=== PATIENT | male | born 1945 | race Caucasian/White ===

== ENCOUNTER → 2016-07-22 | Outpatient (REF) | payer MEDICARE, OTHER ==
[~2016-07-22] MED LIST: ASPI81TA90 PO; BENI20TA5 PO; IRON325T3 PO; LEVO500T PO; SENN8.6T7 PO; TYLE325T5 PO; vitamin D3 PO
[2016-07-22 19:21] LABS: PERCENT SATURATION 16.3 % (19.7-37.4)
== END ==
LOC: M LAB REF 16:26
PROVIDERS: ATTEND Internal Medicine
DX: D50.9 Iron deficiency anemia, unspecified (principal); K90.0 Celiac disease

== ENCOUNTER → 2016-09-11 | Outpatient (CLI) | payer MEDICARE, OTHER | LOC: M SMT 10:45 | PROVIDERS: ATTEND Urology | DX: C61 Malignant neoplasm of prostate (principal) ==

== ENCOUNTER 2016-10-11 09:16 | Inpatient (IN) | payer MEDICARE, OTHER ==
[~2016-10-11] VITALS: Ht 180.3 cm; Wt 92.5 kg
[2016-10-11] MEDS ORDERED: ASPI1TAB PO (09:32)
[2016-10-11] MEDS ORDERED: FERR325T3 PO (09:32)
[2016-10-11] MEDS ORDERED: [UNRECOGNIZED DRUG - OTHER] (09:32)
[2016-10-11 10:30] LABS: ANION GAP 9 MEQ/L (8-16); BLOOD UREA NITROGEN 20 MG/DL (7-18); CALCIUM LEVEL 8.9 MG/DL (8.8-10.2); CARBON DIOXIDE LEVEL 24 MEQ/L (21-32); CHLORIDE LEVEL 99 MEQ/L (98-107); CREATININE FOR GFR 1.08 MG/DL (0.70-1.30); GLOMERULAR FILTRATION RATE > 60.0 (>42); GLUCOSE, FASTING 138 MG/DL (83-110); POTASSIUM SERUM 4.3 MEQ/L (3.5-5.1); SODIUM LEVEL 132 MEQ/L (136-145)
[2016-10-11] MEDS ORDERED: METOPROLOL 5 MG/5 ML VIAL IV SCH (10:30)
[2016-10-11] MEDS ORDERED: METOPROLOL TART 50 MG TAB PO ONE (10:30)
[2016-10-11 10:51] LABS: BASO % 0.6 % (0.0-1.0); EOS % 0.9 % (0.0-3.0); LARGE UNSTAINED CELL # 0.2 K/mm3 (0.0-0.4); LARGE UNSTAINED CELL % 5.2 % (0.0-4.0); LYMPH # 0.5 K/mm3 (1.5-4.5); LYMPH % 13.4 % (24.0-44.0); MEAN CORPUSCULAR HEMOGLOBIN 27.7 pg (27.0-33.0); MEAN CORPUSCULAR HGB CONC 32.9 g/dl (32.0-36.5); MEAN CORPUSCULAR VOLUME 84.3 fl (80.0-96.0); MONO # 0.2 K/mm3 (0.0-0.8); MONO % 8.3 % (0.0-5.0); NEUTROPHILS # 2.1 K/mm3 (1.8-7.7); NEUTROPHILS % 71.6 % (36.0-66.0); PLATELET COUNT, AUTOMATED 158 k/mm3 (150-450); WHITE BLOOD COUNT 2.9 K/mm3 (4.0-10.0)
[2016-10-11] MEDS ORDERED: APIXABAN 5 MG TAB (ELIQUIS) PO ONE (11:30)
[2016-10-11] MEDS ORDERED: DIGOXIN INJ 0.5 MG/2 ML AMP (J1160) IV ONE (11:30)
--- NOTE | 2016-10-11 12:43 | REP ---
REASON: Abnormal plain film examination of the chest 10/09/2016 The lack of intravenous contrast decreases the sensitivity of the exam. There is mediastinal and suspected right hilar adenopathy difficult to evaluate without contrast. There are no pleural or pericardial effusions. The imaged upper abdomen is within normal limits. There is diffuse fatty infiltration of the pancreas. The imaged osseous structures show no significant changes from the prior exam. Evaluation of the lung butler show numerable spiculated densities throughout both lung butler, too numerous to count or individually assess and all representing a change from the prior chest CT. Consolidated densities are seen in the right upper lobe and right lower lobe with air bronchograms within them. There is left lateral pleural thickening. IMPRESSION: 1. Abnormal lung field findings as described above. The findings are most suspicious for neoplasm with postobstructive pneumonia. Certainly, other etiologies exist and need to be correlated clinically. PET/CT is in order according to the revised Fleischner's Society criteria after infectious treatment if clinically relevant. 2. Adenopathy is suspected as described above. 3. Other findings as described above. Signed by Prasanna Steiner DO 10/11/2016 02:09 P
[2016-10-11] MEDS ORDERED: cefTRIAXone SOD 2 GM in D5W MINI-BAG PLUS 50 ML IV ONE (13:30)
[2016-10-11] MEDS ORDERED: AZITHROMYCIN INJ 500 MG, VIAL MATE ADAPTER 1 EACH in D5W 250 ML IV ONE (13:30)
[2016-10-11] MEDS ORDERED: TYLE325T5 PO (13:39)
[2016-10-11] MEDS ORDERED: BENI20TA5 PO (13:39)
[2016-10-11] MEDS ORDERED: VITA200015 PO (13:39)
[2016-10-11] MEDS ORDERED: ASPI81TA7 PO (13:39)
[2016-10-11] MEDS ORDERED: OCUVTAB4 PO (13:39)
--- NOTE | 2016-10-11 16:36 | HPE ---
DATE OF ADMISSION: 10/11/2016 PRIMARY CARE PROVIDER: Dr. Gamez ATTENDING PHYSICIAN: Dr. White REASON FOR ADMISSION: Shortness of breath. HISTORY OF PRESENT ILLNESS: The patient is a 71-year-old male with past medical history significant for celiac disease, hypertension, iron-deficiency anemia, history of prostate cancer, presented to the emergency room complaining of 1 week of shortness of breath with exertion getting worse over the past 2 days, stated he has also been having a cough with sputum production for the last 2 days. He denies any chest pain or pressure but he stated he had been getting more lightheaded. He also stated that he has been losing weight, 10 pounds over the past week, 20 pounds in the past 2 months. He was recently seen by his primary care provider Dr. Gamez who ordered a chest x-ray on . The chest x-ray showed suspicious lesions and the patient was given a prescription for CT of the chest. However he presented to the emergency room today before getting his CT scan. CT scan was done in the emergency room which showed mediastinal and suspected right hilar adenopathy. Numerous spiculated densities throughout both lung butler too numerous to count. Findings suspicious for neoplasm with post obstructive pneumonia. The patient is currently saturating 97% on 2 liters nasal cannula. No other complaints. The hospitalist was called for the admission. The patient was also found to be in new onset atrial fibrillation. Dr. Morton was called from the emergency room. He recommended to start the patient on digoxin. He received one dose and metoprolol received one dose as well as start the patient on Eliquis. The patient's heart rate was controlled by the time I saw him. REVIEW OF SYSTEMS: 12-point review of systems was obtained all which was negative except for those mentioned above. PAST MEDICAL HISTORY: Significant for history of celiac disease, hypertension, iron deficiency anemia, history of prostate cancer. PAST SURGICAL HISTORY: Significant for right hip replacement, prostate surgery 3 years ago, patient follows up with Dr. Christian outpatient. ALLERGIES TO MEDICATIONS: None. SOCIAL HISTORY: The patient used to smoke but quit 50 years ago, he stated he only smoked for a couple of years and drinks alcohol occasionally. Lives at home with his . FAMILY HISTORY: Significant for cardiac disease. His father had a heart attack in his 60s. No other significant family history. HOME MEDICATIONS: Include: - Tylenol 650 mg by mouth every 6 hours as needed for pain - aspirin 81 mg daily - vitamin D 2000 by mouth daily - iron sulfate 325 by mouth daily PHYSICAL EXAMINATION: Vital signs: On admission: Temperature 96.9, pulse 114, respiratory rate 16, blood pressure is 98/60. HEENT: Pupils equal, round, reactive to light and accommodation. Neck is supple. No jugular venous distention (JVD). Lungs: Clear to auscultation bilaterally. Abdomen: Soft, nontender, nondistended. Extremities: No clubbing, cyanosis or edema. LABORATORY FINDINGS: WBC is 2.9, hemoglobin 14, hematocrit 47, platelet count 158. Sodium 132, potassium 4.3, chloride 99, BUN 20, creatinine 1.08. Troponin 0.08. CT findings as above. ASSESSMENT/PLAN: 1. New onset atrial fibrillation, likely secondary to lung disease, pneumonia, plus or minus metastatic disease. Continue Eliquis. Repeat EKG in the morning. Continue to trend cardiac enzymes. Will continue to monitor the patient on telemetry. Will likely need to followup with cardiology outpatient. 2. Spiculated densities on CT scan likely secondary to metastatic disease. We will consult Dr. Morgan who had agreed to see the patient in consultation. The patient will likely need lung biopsy. Continue oxygen therapy to keep saturations above 90%. 3. History of hypertension. Patient is currently hypotensive. We will put hold parameters on Benicar. 4. Questionable pneumonia. Continue IV antibiotics. The patient received one dose of azithromycin and Rocephin in the emergency room. Will continue. 5. History of iron deficiency anemia. Continue iron sulfate 325 mg by mouth daily. 6. History of prostate cancer. 7. Deep venous thrombosis (DVT) prophylaxis. Patient is currently on Eliquis.
[2016-10-11 16:40] VITALS: BP 113/64
[2016-10-11 18:00] VITALS: BP 134/60
[2016-10-11] MEDS: APIXABAN 5 MG TAB (ELIQUIS) PO SCH (20:22)
[2016-10-11] MEDS: OCUVITE 1 TAB PO SCH (21:00)
[2016-10-11 21:15] VITALS: BP 108/72
[2016-10-12] VITALS (7 sets, daily range): BP systolic 99–136; BP diastolic 61–78
[2016-10-12] MEDS: ACETAMINOPHEN TAB 650MG DOSE (2X325MG) PO PRN (00:52)
[2016-10-12] MEDS ORDERED: DIGOXIN INJ 0.5 MG/2 ML AMP (J1160) IV ONE (01:15)
[2016-10-12] MEDS: METOPROLOL TART 25 MG TABLET PO SCH ×5 (01:21→21:11)
[2016-10-12 04:10] LABS: BASO % 0.3 % (0.0-1.0); EOS % 1.4 % (0.0-3.0); LARGE UNSTAINED CELL # 0.1 K/mm3 (0.0-0.4); LARGE UNSTAINED CELL % 4.4 % (0.0-4.0); LYMPH # 0.4 K/mm3 (1.5-4.5); LYMPH % 11.3 % (24.0-44.0); MEAN CORPUSCULAR HEMOGLOBIN 27.9 pg (27.0-33.0); MEAN CORPUSCULAR HGB CONC 33.7 g/dl (32.0-36.5); MEAN CORPUSCULAR VOLUME 82.7 fl (80.0-96.0); MONO # 0.2 K/mm3 (0.0-0.8); MONO % 7.8 % (0.0-5.0); NEUTROPHILS # 2.1 K/mm3 (1.8-7.7); NEUTROPHILS % 74.8 % (36.0-66.0); PLATELET COUNT, AUTOMATED 148 k/mm3 (150-450); WHITE BLOOD COUNT 2.8 K/mm3 (4.0-10.0)
[2016-10-12 04:31] LABS: ALBUMIN 2.6 GM/DL (3.2-5.2); ALBUMIN/GLOBULIN RATIO 0.68 (1.00-1.93); ALKALINE PHOSPHATASE 102 U/L (45-117); ALT/SGPT 39 U/L (12-78); ANION GAP 9 MEQ/L (8-16); AST/SGOT 55 U/L (15-37); BILIRUBIN,TOTAL 0.5 MG/DL (0.2-1.0); BLOOD UREA NITROGEN 22 MG/DL (7-18); CALCIUM LEVEL 8.3 MG/DL (8.8-10.2); CARBON DIOXIDE LEVEL 24 MEQ/L (21-32); CHLORIDE LEVEL 101 MEQ/L (98-107); CREATININE FOR GFR 0.95 MG/DL (0.70-1.30); GLOMERULAR FILTRATION RATE > 60.0 (>42); GLUCOSE, FASTING 135 MG/DL (83-110); POTASSIUM SERUM 4.1 MEQ/L (3.5-5.1); SODIUM LEVEL 134 MEQ/L (136-145); TOTAL PROTEIN 6.4 GM/DL (6.4-8.2)
[2016-10-12] MEDS ORDERED: ENOXAPARIN 30 MG/0.3 ML SYR (J1650) SC SCH (09:00)
[2016-10-12] MEDS ORDERED: cefTRIAXone SOD 1 GM in D5W MINI-BAG PLUS 50 ML IV SCH (09:00)
--- NOTE | 2016-10-12 09:14 | ECGEPIP ---
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
[2016-10-12] MEDS: AZITHROMYCIN INJ 500 MG, VIAL MATE ADAPTER 1 EACH in D5W 250 ML IV SCH (09:58)
[2016-10-12] MEDS: APIXABAN 5 MG TAB (ELIQUIS) PO SCH (10:02)
[2016-10-12] MEDS: FERROUS SULFATE 325MG TAB PO SCH (10:02)
[2016-10-12] MEDS: VITAMIN D 1,000 INTERNATIONAL UNITS TABLET PO SCH (10:02)
[2016-10-12] MEDS: OLMESARTAN MEDOXOMIL 20 MG TAB (BENICAR) PO SCH (11:37)
[2016-10-12] MEDS: OCUVITE 1 TAB PO SCH ×2 (11:37→21:11)
[2016-10-12] MEDS ORDERED: GASTROGRAFIN SOLUTION 30ML PO ONE (12:55)
[2016-10-12] MEDS: PIPERACILLIN/TAZOBACTAM SOD 3.375 GM in D5W MINI-BAG PLUS 50 ML IV SCH ×2 (13:11→18:06)
[2016-10-12] MEDS: DIGOXIN 0.25 MG TAB PO SCH (13:15)
[2016-10-12] MEDS ORDERED: GASTROGRAFIN SOLUTION 30ML (Q9963) PO ONE (13:25)
[2016-10-12] MEDS ORDERED: ISOVUE-370 76% 100ML VIAL (Q9967) As Ordered ONE (14:25)
--- NOTE | 2016-10-12 15:59 | ECGEPIP ---
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 NONSPECIFIC T-WAVE ABNORMALITY ABNORMAL RHYTHM ECG Electronically Signed On 10-12-2016 15:59:04 EDT by Oscar Morton
--- NOTE | 2016-10-12 17:29 | CR ---
DATE OF CONSULTATION: 10/12/2016 NOTE: I was asked by Dr. Franks to evaluate Mr. Sanches for an abnormal chest CT scan. Mr. Sanches is a 71-year-old white male who has felt increasing shortness of breath over the past few weeks. He had been seen by Dr. Gamez last and had a chest x-ray done which had some abnormalities on it, and he was scheduled to have a chest CT scan. However, his dyspnea worsened and he came to the emergency department on Thursday. At that time, he was found to be in atrial fibrillation with rapid ventricular response. Chest CT scan was done which showed multiple abnormalities which will be described below. In addition to the shortness of breath, Mr. Sanches has had a cough; however, he was unable to expectorate. He had no fevers. He had thought that his cough may have possibly been secondary to postnasal drip. No reflux symptoms. He also felt as if he might have been "getting a cold." No chest pain or pressure. No paroxysmal nocturnal dyspnea (PND) or orthopnea. No wheezing. No lower extremity edema or history of deep venous thrombosis (DVT). He did develop night sweats that happen on occasion to the point where he has to change his clothing. He is not certain how long they have been going on, but not for a prolonged period of time. He describes early satiety and notes that he has lost 10 pounds or so over the last month. He is less clear as to whether or not his appetite is truly decreased. No swallowing difficulties or choking episodes. Mr. Sanches notes that he had what he considers a similar episode last spring, where he also felt unwell, had dyspnea on exertion and weight loss. These symptoms resolved over about a month. He had a chest x- ray done at that time which did not show any abnormalities. Previously, Mr. Sanches has been diagnosed with bronchitis on occasion, as well as at least one, if not two episodes of pneumonia, though I do not know if they were chest x-ray confirmed. He had asthma in childhood but feels he has outgrown it. Since his admission, he has converted to sinus rhythm. His dyspnea on exertion is essentially resolved with the conversion to normal sinus rhythm. No new symptoms since admission. PAST MEDICAL HISTORY: 1. Celiac disease. 2. Hypertension. 3. Iron-deficiency anemia. 4. History of prostate cancer, status post transurethral resection of the prostate (TURP). 5. Status post right hip replacement. 6. Previous history of minimal tobacco usage. ALLERGIES: No known drug allergies. MEDICATIONS: - Tylenol 650 mg by mouth every six hours as needed - aspirin 81 mg by mouth daily - vitamin D 2000 units by mouth daily - iron sulfate 325 mg by mouth daily FAMILY HISTORY: His mother of cancer of unknown primary. His father had a myocardial infarction and in his 60s. No other family history of lung disease. SOCIAL HISTORY: Mr. Sanches smoked briefly for a couple of years and quit about 50-60 years ago. He had second-hand smoke exposure in childhood as his father smoked. Social alcohol usage. No illicit drug usage. They have two cats as pets, which they have had for years. 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 Since his care home, his hobbies include woodworking, and he volunteers at [employer]. 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 He last worked there about a year ago. [place] [facility], but that was in [place]. No travel outside of [facility] in the last four years or so. REVIEW OF SYSTEMS: Per history of present illness (HPI). Major pertinent review of systems are negative. PHYSICAL EXAMINATION: GENERAL: Mr. Sanches is lying in bed in no acute distress. He can complete full sentences. No coughing at evaluation. He is easily able to move to the sitting position. VITAL SIGNS: Temperature 96.9 with a temperature maximum (T-max) of 100.2, pulse 113, respiratory rate 20, blood pressure 114/75 with an mean arterial pressure (MAP) of 88. SpO2 97% and an FiO2 on two liters by nasal cannula. HEENT: Anicteric, nares patent bilaterally. Moist mucosa. Oropharynx clear. No lesions. No evidence of drainage in the posterior pharynx. Mallampati II-III. Good dentition. NECK: Supple, without jugular venous distention (JVD), thyromegaly or masses. Trachea is midline. LYMPHATIC: Without cervical or supraclavicular adenopathy. CHEST: Normal shape. LUNGS: Symmetrical excursion, good air entry, no wheeze, rhonchi or crackle on tidal excursion or force maneuver. Normal I to E without change on force maneuver. No accessory muscle use, no retractions. Normal percussion. Normal palpation. CARDIOVASCULAR: Tachycardic regular rhythm. Normal S1, S2. No murmur, rub, or gallop appreciated. ABDOMEN: Positive bowel sounds, soft, nondistended, nontender, no hepatosplenomegaly or mass is appreciated. EXTREMITIES: Without cyanosis, clubbing or edema. Palpable pedal pulses bilaterally, no calf tenderness. LABORATORY DATA: CBC from today shows a hemoglobin of 13.1, hemoglobin 39.0, platelet count 148,000, white blood cell count 2800 with a differential of 75% neutrophils, 11% lymphocytes, and 8% monocytes. Chemistry shows sodium 134, potassium 4.1, chloride 101, bicarbonate 24, anion gap 9, BUN 22, creatinine 1.0, glucose 135, calcium 8.3, total bilirubin 0.5, AST 55, ALT 39, alkaline phosphatase 102, most recent CK 94 with a CK-MB of 2.6 and a troponin is 0.03. Maximum troponin was 2.24. Total protein 6.4, albumin 2.6. IMAGING: I reviewed his chest CT, as well as the report. That CT scan showed normal-appearing cardiac silhouette and pulmonary vascular shadows. There was right hilar adenopathy. There are several small, enlarged mediastinal lymph nodes, but I am not certain any of them are pathologic, except perhaps the subcarinal lymph node. There were bilateral spiculated densities as well as regions of ground-glass. The spiculated nodules involve all lung butler. There are regions that are more consolidated, including regions in the right upper lobe and middle lobe that contain air bronchograms. IMPRESSION: 1. Abnormal chest x-ray/CT scan with findings that include bilateral, diffuse spiculated nodules, regions of ground glass, more consolidated regions and regions that have air bronchograms. It is not clear if all of these findings are the same process. Differential would include inflammatory process, infectious process, related to celiac sprue, malignancy or other. If this is malignancy, it is less likely a lung primary, but rather metastatic. 2. Dyspnea on exertion. Based on his response to converting to sinus rhythm, I suspect that most of his symptoms related to dyspnea, were because of atrial fibrillation with rapid ventricular response, and not necessarily related to the chest x-ray findings. 3. Atrial fibrillation with rapid ventricular response, new onset. 4. Night sweats of recent onset. 5. Weight loss, recent and due to early satiety. 6. History of asthma in childhood. 7. Remote history of minimal tobacco usage. RECOMMENDATIONS: 1. I discussed the differential with Mr. Sanches and his , and questions were answered. 2. I discussed with them that I would review the chest CT scan again to determine if there is an area of easy biopsy by radiology that appears more of the spiculated nodule-type of pattern than the consolidated pattern. If that is the case, that would be the easiest process to pursue. 3. I will have the CT reformatted into the ilogic CT scan. If any of the spiculated nodules are best approached by bronchoscopy, ENB would be necessary. 4. I discussed both possible procedures briefly, but not in detail, with Mr. Sanches and his . 5. Agree with antibiotic treatment as I am not certain that all the findings on this chest CT scan represent the same process. 6. We will follow with further recommendations after re-review of the chest CT scan. Thank you for this consult. PAOLA
[2016-10-12] MEDS: NS 1,000 ML IV SCH (17:33)
[2016-10-12] MEDS: ALPRAZolam 0.25 MG TAB PO PRN (21:48)
[2016-10-13] VITALS (8 sets, daily range): BP systolic 100–111; BP diastolic 55–66
[2016-10-13] MEDS: PIPERACILLIN/TAZOBACTAM SOD 3.375 GM in D5W MINI-BAG PLUS 50 ML IV SCH ×4 (01:27→18:35)
[2016-10-13] MEDS: METOPROLOL TART 25 MG TABLET PO SCH ×4 (04:35→21:39)
[2016-10-13 06:10] LABS: BASO % 0.6 % (0.0-1.0); EOS % 0.6 % (0.0-3.0); LARGE UNSTAINED CELL # 0.1 K/mm3 (0.0-0.4); LARGE UNSTAINED CELL % 3.7 % (0.0-4.0); LYMPH # 0.5 K/mm3 (1.5-4.5); LYMPH % 15.5 % (24.0-44.0); MEAN CORPUSCULAR HEMOGLOBIN 27.2 pg (27.0-33.0); MEAN CORPUSCULAR HGB CONC 32.4 g/dl (32.0-36.5); MEAN CORPUSCULAR VOLUME 83.8 fl (80.0-96.0); MONO # 0.2 K/mm3 (0.0-0.8); MONO % 8.2 % (0.0-5.0); NEUTROPHILS # 1.8 K/mm3 (1.8-7.7); NEUTROPHILS % 71.5 % (36.0-66.0); PLATELET COUNT, AUTOMATED 164 k/mm3 (150-450); RED CELL DISTRIBUTION WIDTH 13.9 % (11.5-14.5); WHITE BLOOD COUNT 2.5 K/mm3 (4.0-10.0)
[2016-10-13 06:15] LABS: ALBUMIN 2.5 GM/DL (3.2-5.2); ALBUMIN/GLOBULIN RATIO 0.69 (1.00-1.93); ALKALINE PHOSPHATASE 101 U/L (45-117); ALT/SGPT 37 U/L (12-78); ANION GAP 9 MEQ/L (8-16); AST/SGOT 52 U/L (15-37); BILIRUBIN,TOTAL 0.6 MG/DL (0.2-1.0); BLOOD UREA NITROGEN 19 MG/DL (7-18); CALCIUM LEVEL 8.6 MG/DL (8.8-10.2); CARBON DIOXIDE LEVEL 27 MEQ/L (21-32); CHLORIDE LEVEL 100 MEQ/L (98-107); GLOMERULAR FILTRATION RATE > 60.0 (>42); GLUCOSE, FASTING 111 MG/DL (83-110); POTASSIUM SERUM 4.2 MEQ/L (3.5-5.1); SODIUM LEVEL 136 MEQ/L (136-145); TOTAL PROTEIN 6.1 GM/DL (6.4-8.2)
[2016-10-13] MEDS: NS 1,000 ML IV SCH (06:16)
--- NOTE | 2016-10-13 06:38 | REP ---
REASON: Suspect malignancy. COMPARISON: Abdominal and pelvic CT of 08/28/2005 which is the latest prior. Lung base images of the chest CT of 10/11/2016 were reviewed. CONTRAST UTILIZED: 100 mL Isovue 370. Lung base images are unchanged from the prior chest CT. There are no abnormal enhancing hepatic lesions. The gallbladder, spleen, pancreas, adrenal glands, and kidneys are within normal limits for the patient's age. There is mild bilateral renal cortical thinning and there is a simple 1.3 cm sized cyst in the mid polar region of the left kidney. The abdominal aorta is within normal limits. There is para-aortic adenopathy. There is no evidence of free fluid or free air in the abdomen. There are multiple gas, contrast, and fluid filled small bowel loops seen in the abdomen which are mildly dilated. CT PELVIS: [place] artifact arising from a right hip prosthesis obscures multiple images. There is no free fluid or free air. There is no mass or adenopathy. The bowel loops are within normal limits. There is sigmoid colon diverticulosis. Bone window technique throughout the exam shows chronic osseous changes with spinal degenerative changes and a right hip prosthesis. The bones appear demineralized. IMPRESSION: 1. Small bowel ileus versus early partial bowel obstruction. 2. Para-aortic adenopathy of uncertain etiology with enlarged lymph nodes seen in the leesa hepatis and adjacent to the celiac axis. Neoplastic change cannot be ruled out and is, in fact, suspected since there is no evidence of inflammatory bowel disease. 3. Simple left renal cyst. 4. Other findings as described above. Signed by Prasanna Steiner DO 10/13/2016 03:40 P
[2016-10-13] MEDS: OLMESARTAN MEDOXOMIL 20 MG TAB (BENICAR) PO SCH (09:08)
[2016-10-13] MEDS: ALPRAZolam 0.25 MG TAB PO PRN ×2 (09:08→17:49)
[2016-10-13] MEDS: FERROUS SULFATE 325MG TAB PO SCH (09:08)
[2016-10-13] MEDS: OCUVITE 1 TAB PO SCH ×2 (09:09→21:39)
[2016-10-13] MEDS: DIGOXIN 0.25 MG TAB PO SCH (09:09)
[2016-10-13] MEDS: VITAMIN D 1,000 INTERNATIONAL UNITS TABLET PO SCH (09:09)
[2016-10-13] MEDS: AZITHROMYCIN INJ 500 MG, VIAL MATE ADAPTER 1 EACH in D5W 250 ML IV SCH (10:01)
--- NOTE | 2016-10-13 10:17 | IPN ---
DATE: 10/12/2016 Mr. Sanches is feeling better than he did on arrival. He has no chest pain. He is still somewhat short of breath. He is not producing any sputum, although he feels as though some could come up. He is quite anxious about his possible diagnosis. Temperature is 96.9, pulse has a range between 66-125 this morning, most recently is 103, respiratory rate 20, blood pressure 114/75, 97% on 2 liters. Intake and output notable for a positive fluid status of 665. Body mass index 30.3. He is awake, appropriately interactive, seems somewhat anxious with a flattened affect. Mucous membranes are moist. Neck supple. He is somewhat diaphoretic, but afebrile. Breathing is symmetrically diminished with coarse airway sounds throughout, no wheeze. Heart is in a regular rate and rhythm, normal S1, S2. Abdomen soft, somewhat distended, no organomegaly is appreciated. No significant lower extremity edema. White count 2.8, hemoglobin 13.1, platelets of 148. Sodium 134, BUN 22, creatinine 0.95, troponins have been negative times four. AST is minimally elevated at 55. Blood cultures are pending times two. My assessment is as follows: This is a 71-year-old with atrial fibrillation and rapid ventricular response (RVR), likely secondary to postobstructive pneumonia. Plan will be as follows: 1. Cardiovascular. Patient is on a standing beta tiffanie. I have added standing digoxin as well. I have elected to discontinue Eliquis at this time pending need for possible procedure. This will act as appropriate deep venous thrombosis (DVT) prophylaxis for today but that will need to be re-addressed tomorrow. Cardiac enzymes have been negative. 2. The patient has densities on CT scan, thought to be secondary to metastatic disease. Will order a CT scan of his abdomen today to look for possible biopsy targets in the abdomen. There is a previous history of enlarged lymph nodes around the time of his prostatectomy. Biopsies of those were negative. 3. Patient was hypotensive at the time of presentation. He did receive his Benicar today. Will continue that as previously ordered for now as renal function appears to be maintained. 4. The patient has history of celiac disease. Has had previous EGD and colonoscopy without evidence of malignant foci. 5. The patient has history of vitamin deficiency. 6. The patient has history of prostate cancer. 7. Deep venous thrombosis (DVT) prophylaxis will need to be re-addressed tomorrow, most likely with Lovenox.
[2016-10-13] MEDS ORDERED: LIDOCAINE 1% MDV 20ML VIAL As Ordered ONE (13:09)
--- NOTE | 2016-10-13 15:12 | REP ---
Chest x-ray: PA view. History: Status post CT guided needle biopsy right lung. Comparison study October 09, 2016. Findings: Patchy bilateral infiltrates are again seen. There is no evidence of pneumothorax or hydrothorax. Impression: Lung butler unchanged. No complication is identified. Signed by Teofilo Griffin MD 10/13/2016 06:27 P
--- NOTE | 2016-10-13 15:30 | IPN ---
DATE: 10/13/2016 The patient is feeling better today, less short of breath, more energy. Still has some anxiety about his possible diagnosis. Temperature is 97.8, pulse 107, respiratory rate 18, blood pressure 106/55, 96% on 2 liters. Intake and output notable for a positive fluid balance of 1780. Four bowel movements yesterday. Weight is 99.9 kg with a body mass index of 30.7. He awake, appropriately interactive, pleasantly conversant. Heart seems to be in a regular rate and rhythm. Rate is right around 100. Abdomen soft, doughy, nontender. White cell count 2.5, hemoglobin 12.1, platelets of 164. BUN 19, creatinine 1, glucose of 111. Blood cultures are negative at 48 hours. ASSESSMENT: This is a 71-year-old with atrial fibrillation with rapid ventricular response (RVR), which appears to be resolved, likely secondary to postobstructive pneumonia. PLAN: 1. Cardiovascular. Patient continues on a beta tiffanie with hold parameters. Is on digoxin as well. Seems to be back in sinus rhythm at this point. We have discontinued Eliquis, planning for a possible biopsy of a chest lesions today. Will need to be reassessed as an outpatient. Seems likely that this was atrial fibrillation, which was induced by a pneumonia. Need for home anticoagulation should be considered, depending on his clinical course. 2. Patient has multiple areas of unusual density on CT scan, though to be secondary to metastatic disease. Dr. Morgan is following. Pursuing biopsy today as well as cultures of those lesions. He does have history of a biopsy of abdominal lymph nodes around the time of his prosthetic procedure. 3. Patient has leukopenia and developing anemia. Will get a peripheral smear. Given the fact that his total protein is in the normal range and his albumin is low, will check an serum protein electrophoresis (SPEP) and a urin protein electrophoresis (UPEP), although that seems less likely. We did do a screening CT of the abdomen and pelvis with the only notable finding being periaortic adenopathy with possibility of relation to an underlying malignancy being strongly considered. 4. Patient has history of prostate cancer. 5. Patient has deep vein thrombosis (DVT) prophylaxis that will be ordered postprocedure today in the form of Lovenox.
--- NOTE | 2016-10-13 17:19 | REP ---
CT GUIDED RIGHT LOWER LOBE LUNG BIOPSY: The procedure was performed under the direct supervision of Dr. Griffin. The patient has a history of spiculated masses throughout both lung butler seen on a previous CAT scan dated 10/11/2016. A mass in the right lower lobe was selected for biopsy. The risks and benefits of the procedure were explained to the patient and informed consent was obtained. The right lower lobe lung mass was localized using CT guidance. The skin was prepped and draped in a sterile fashion. 1% Xylocaine was used as a local anesthetic. Using CT guidance a 19/20-gauge coaxial needle biopsy system was inserted and then advanced into the mass. 6 core biopsy samples were obtained and sent to the lab. The patient tolerated the procedure well and there were no immediate complications. Reviewed by BRYANT Valencia 10/14/2016 04:42 PEdited and Signed by Teofilo Griffin MD 10/14/2016 05:10 P
[2016-10-13] MEDS: HEPARIN SOD (PORCINE) 5000 UNITS/ML VIAL SQ SCH (21:39)
[2016-10-13] MEDS ORDERED: SODIUM CHLORIDE 0.9% 1000 ML IV ONE (23:30)
[2016-10-14] VITALS (7 sets, daily range): BP systolic 101–150; BP diastolic 53–90
[2016-10-14] MEDS: PIPERACILLIN/TAZOBACTAM SOD 3.375 GM in D5W MINI-BAG PLUS 50 ML IV SCH ×4 (00:30→18:33)
[2016-10-14] MEDS: METOPROLOL TART 25 MG TABLET PO SCH (04:39)
[2016-10-14 05:41] LABS: REASON FOR REVIEW COMPREHENSIVE REVIEW
[2016-10-14 05:49] LABS: BASO % 0.6 % (0.0-1.0); EOS % 0.8 % (0.0-3.0); LARGE UNSTAINED CELL # 0.1 K/mm3 (0.0-0.4); LARGE UNSTAINED CELL % 5.9 % (0.0-4.0); LYMPH # 0.4 K/mm3 (1.5-4.5); LYMPH % 15.7 % (24.0-44.0); MEAN CORPUSCULAR HEMOGLOBIN 29.1 pg (27.0-33.0); MEAN CORPUSCULAR HGB CONC 34.5 g/dl (32.0-36.5); MEAN CORPUSCULAR VOLUME 84.2 fl (80.0-96.0); MONO # 0.2 K/mm3 (0.0-0.8); MONO % 7.2 % (0.0-5.0); NEUTROPHILS # 1.6 K/mm3 (1.8-7.7); NEUTROPHILS % 69.8 % (36.0-66.0); PLATELET COUNT, AUTOMATED 163 k/mm3 (150-450); RED CELL DISTRIBUTION WIDTH 14.1 % (11.5-14.5); WHITE BLOOD COUNT 2.3 K/mm3 (4.0-10.0)
[2016-10-14 06:00] LABS: ALBUMIN 2.4 GM/DL (3.2-5.2); ALKALINE PHOSPHATASE 137 U/L (45-117); ALT/SGPT 45 U/L (12-78); ANION GAP 10 MEQ/L (8-16); AST/SGOT 69 U/L (15-37); BILIRUBIN,TOTAL 0.5 MG/DL (0.2-1.0); BLOOD UREA NITROGEN 17 MG/DL (7-18); CALCIUM LEVEL 7.9 MG/DL (8.8-10.2); CARBON DIOXIDE LEVEL 24 MEQ/L (21-32); CHLORIDE LEVEL 105 MEQ/L (98-107); GLOMERULAR FILTRATION RATE > 60.0 (>42); GLUCOSE, FASTING 101 MG/DL (83-110); POTASSIUM SERUM 4.1 MEQ/L (3.5-5.1); SODIUM LEVEL 139 MEQ/L (136-145); TOTAL PROTEIN 5.4 GM/DL (6.4-8.2)
[2016-10-14] MEDS: OCUVITE 1 TAB PO SCH ×2 (09:02→20:35)
[2016-10-14] MEDS: FERROUS SULFATE 325MG TAB PO SCH (09:02)
[2016-10-14] MEDS: OLMESARTAN MEDOXOMIL 20 MG TAB (BENICAR) PO SCH ×2 (09:02→09:30)
[2016-10-14] MEDS: HEPARIN SOD (PORCINE) 5000 UNITS/ML VIAL SQ SCH ×2 (09:03→20:35)
[2016-10-14] MEDS: AZITHROMYCIN 250 MG TAB PO SCH (09:03)
[2016-10-14] MEDS: DIGOXIN 0.25 MG TAB PO SCH (09:04)
[2016-10-14] MEDS: VITAMIN D 1,000 INTERNATIONAL UNITS TABLET PO SCH (09:04)
--- NOTE | 2016-10-14 11:36 | IPNPDOC ---
Subjective Date Seen The patient was seen on 10/14/16. Subjective Chief Complaint/HPI The patient is a 71-year-old male admitted with a reason for visit of Atrial Fib With Rvr. Events since last encounter feeling better this am , had a spike of fever last night and had soft blood pressures, continues to be in a fib rate is controlled. Objective Physical Examination General Exam: Positive: Alert, Cooperative, No Acute Distress Eye Exam: Positive: Conjunctiva & lids normal, EOMI, PERRLA, Negative: Sclera icteric ENT Exam: Positive: Atraumatic, Mucous membr. moist/pink, Pharynx Normal Neck Exam: Positive: Supple, Negative: JVD, thyromegaly Chest Exam: Positive: Rales Heart Exam: Positive: Irregular Rhythm, Normal S1, Normal S2 Telemetry: Positive: Atrial fibrillation Abdomen Exam: Positive: Normal bowel sounds, Soft, Negative: Hepatospenomegaly, Tenderness Extremity Exam: Positive: Normal pulses, Negative: Clubbing, Cyanosis, Edema Skin Exam: Positive: Nl turgor and temperature, Negative: Breakdown, Rash Assessment /Plan Problems (1) Postobstructive pneumonia Status: Acute Problem Text: continue with zosyn and azithromycin (2) Atrial fibrillation with RVR Status: Acute Problem Text: still in afib rate is being controlled with digoxin and metoprolol. will need to start on anticoagulation on dc. (3) Hypertension Status: Chronic Problem Text: now bp soft benicar dose reduced with hold parameters. (4) Iron deficiency anemia Status: Chronic (5) Celiac disease Status: Chronic (6) History of prostate cancer Status: Chronic Problem Text: had radical prostatectomy in 2013. (7) Abnormal CT scan of lung Status: Acute Problem Text: with spiculated nodules, mediastinal lymph nodes and patchy consolidations differential includes infection , inflammation or metastatic malignancy had lung biopsy , results pending. (8) Leucopenia Status: Acute Problem Text: infection or medication related. Plan/VTE VTE Prophylaxis Ordered?: Yes VS, I&O, 24H, Fishbone Vital Signs/I&O Vital Signs Date Time Temp Pulse Resp B/P Pulse Ox O2 Delivery O2 Flow Rate FiO2 10/14/16 09:30 108/56 10/14/16 09:04 87 10/14/16 08:00 99.2 18 97 Room Air 10/13/16 15:10 I&O- Last 24 Hours up to 6 AM 10/14/16 06:00 Intake Total 2630 ml Output Total 2050 ml Balance 580 ml Laboratory Data 24H LABS Laboratory Tests 2 10/13/16 17:04: Urine Total Protein 24.7H 10/14/16 05:23: Blood Urea Nitrogen 17, Creatinine 1.00, Sodium Level 139, Potassium Level 4.1, Chloride Level 105, Carbon Dioxide Level 24, Calcium Level 7.9L, Aspartate Amino Transf (AST/SGOT) 69H, Alanine Aminotransferase (ALT/SGPT) 45, Alkaline Phosphatase 137H, Total Bilirubin 0.5, Total Protein 5.4L, Albumin 2.4L, Albumin /Globulin Ratio 0.80L, Anion Gap 10, White Blood Count 2.3L, Red Blood Count 4.12L, Hemoglobin 12.0L, Hematocrit 34.7L, Mean Corpuscular Volume 84.2, Mean Corpuscular Hemoglobin 29.1, Mean Corpuscular Hemoglobin Concent 34.5, Red Cell Distribution Width 14.1, Platelet Count 163, Neutrophils (%) (Auto) 69.8H, Lymphocytes (%) (Auto) 15.7L, Monocytes (%) (Auto) 7.2H, Eosinophils (%) (Auto) 0.8, Basophils (%) (Auto) 0.6, Neutrophils # (Auto) 1.6L, Lymphocytes # (Auto) 0.4L, Monocytes # (Auto) 0.2, Eosinophils # (Auto) 0.0, Basophils # (Auto) 0.0, Differential Pathologist's Review COMPREHENSIVE REVIEW, Differential Slide Review Report, Glomerular Filtration Rate > 60.0, Large Unclassified Cells # 0.1 , Large Unclassified Cells % 5.9H, Peripheral Blood Smear Path Consult PERIPHERAL SMEAR CBC/BMP Laboratory Tests 10/14/16 05:23 Calcium Level 7.9 L, Aspartate Amino Transf (AST/SGOT) 69 H, Alanine Aminotransferase (ALT/SGPT) 45, Alkaline Phosphatase 137 H, Total Bilirubin 0.5 , Total Protein 5.4 L, Albumin 2.4 L, Red Blood Count 4.12 L, Mean Corpuscular Volume 84.2, Mean Corpuscular Hemoglobin 29.1, Mean Corpuscular Hemoglobin Concent 34.5, Red Cell Distribution Width 14.1, Neutrophils (%) (Auto) 69.8 H, Lymphocytes (%) (Auto) 15.7 L, Monocytes (%) (Auto) 7.2 H, Eosinophils (%) (Auto ) 0.8, Basophils (%) (Auto) 0.6, Neutrophils # (Auto) 1.6 L, Lymphocytes # (Auto ) 0.4 L, Monocytes # (Auto) 0.2, Eosinophils # (Auto) 0.0, Basophils # (Auto) 0.0 Microbiology Microbiology 10/11/16 Blood Culture - Preliminary, Resulted No Growth after 48 hours. All Specime... 10/11/16 Blood Culture - Preliminary, Resulted No Growth after 48 hours. All Specime... 10/13/16 Acid Fast Stain, Received Pending 10/13/16 Mycobacterial Culture, Received Pending 10/13/16 Fungal Smear, Received Pending 10/13/16 Fungal Culture, Received Pending 10/13/16 Gram Stain - Final, Resulted 10/13/16 Bacterial Culture, Resulted Pending RICKY ZIMMERMAN MD Oct 14, 2016 11:36
[2016-10-14 12:44] LABS: ALBUMIN 2.64 GM/DL (3.29-5.55); ALBUMIN % 48.9 % (55.8-66.1); GAMMA GLOBULIN % 17.7 % (11.1-18.8)
[2016-10-14] MEDS: METOPROLOL TART 50 MG TAB PO SCH ×2 (16:33→20:35)
[2016-10-14] MEDS: ALPRAZolam 0.25 MG TAB PO PRN (23:09)
[2016-10-15] MEDS: PIPERACILLIN/TAZOBACTAM SOD 3.375 GM in D5W MINI-BAG PLUS 50 ML IV SCH ×4 (00:22→18:36)
[2016-10-15] MEDS: ACETAMINOPHEN TAB 650MG DOSE (2X325MG) PO PRN (01:45)
[2016-10-15 04:00] VITALS: BP 116/66
[2016-10-15 05:57] LABS: BASO % 0.2 % (0.0-1.0); EOS % 0.8 % (0.0-3.0); LARGE UNSTAINED CELL # 0.1 K/mm3 (0.0-0.4); LARGE UNSTAINED CELL % 4.7 % (0.0-4.0); LYMPH # 0.5 K/mm3 (1.5-4.5); MEAN CORPUSCULAR HEMOGLOBIN 27.5 pg (27.0-33.0); MEAN CORPUSCULAR HGB CONC 32.6 g/dl (32.0-36.5); MEAN CORPUSCULAR VOLUME 84.4 fl (80.0-96.0); MONO # 0.2 K/mm3 (0.0-0.8); NEUTROPHILS # 1.8 K/mm3 (1.8-7.7); NEUTROPHILS % 68.3 % (36.0-66.0); PLATELET COUNT, AUTOMATED 181 k/mm3 (150-450); RED CELL DISTRIBUTION WIDTH 14.2 % (11.5-14.5); WHITE BLOOD COUNT 2.6 K/mm3 (4.0-10.0)
[2016-10-15 06:17] LABS: ALBUMIN 2.5 GM/DL (3.2-5.2); ALBUMIN/GLOBULIN RATIO 0.66 (1.00-1.93); ALKALINE PHOSPHATASE 181 U/L (45-117); ALT/SGPT 55 U/L (12-78); ANION GAP 7 MEQ/L (8-16); AST/SGOT 80 U/L (15-37); BILIRUBIN,TOTAL 0.4 MG/DL (0.2-1.0); BLOOD UREA NITROGEN 16 MG/DL (7-18); CARBON DIOXIDE LEVEL 26 MEQ/L (21-32); CHLORIDE LEVEL 105 MEQ/L (98-107); CREATININE FOR GFR 1.08 MG/DL (0.70-1.30); GLOMERULAR FILTRATION RATE > 60.0 (>42); GLUCOSE, FASTING 107 MG/DL (83-110); POTASSIUM SERUM 4.1 MEQ/L (3.5-5.1); SODIUM LEVEL 138 MEQ/L (136-145); TOTAL PROTEIN 6.3 GM/DL (6.4-8.2)
[2016-10-15 08:00] VITALS: BP 114/73
[2016-10-15] MEDS: OLMESARTAN MEDOXOMIL 20 MG TAB (BENICAR) PO SCH (08:37)
[2016-10-15] MEDS: DIGOXIN 0.25 MG TAB PO SCH (08:38)
[2016-10-15] MEDS: AZITHROMYCIN 250 MG TAB PO SCH (08:38)
[2016-10-15] MEDS: FERROUS SULFATE 325MG TAB PO SCH (08:38)
[2016-10-15] MEDS: METOPROLOL TART 25 MG TABLET PO SCH ×2 (08:38→20:57)
[2016-10-15] MEDS: VITAMIN D 1,000 INTERNATIONAL UNITS TABLET PO SCH (08:39)
[2016-10-15] MEDS: HEPARIN SOD (PORCINE) 5000 UNITS/ML VIAL SQ SCH ×2 (08:39→20:56)
[2016-10-15] MEDS: OCUVITE 1 TAB PO SCH ×2 (10:27→20:56)
--- NOTE | 2016-10-15 13:13 | IPNPDOC ---
Subjective Date Seen The patient was seen on 10/15/16. Subjective Chief Complaint/HPI The patient is a 71-year-old male admitted with a reason for visit of Atrial Fib With Rvr. Events since last encounter had another spike of fever last night but overall feeling better every day , appetite improving. no nausea or vomiting or diarrhea, no chest pain or shortness of breath. Objective Physical Examination General Exam: Positive: Alert, Cooperative, No Acute Distress Eye Exam: Positive: Conjunctiva & lids normal, EOMI, PERRLA, Negative: Sclera icteric ENT Exam: Positive: Atraumatic, Mucous membr. moist/pink, Pharynx Normal Neck Exam: Positive: Supple, Negative: JVD, thyromegaly Chest Exam: Positive: Rales Heart Exam: Positive: Irregular Rhythm, Normal S1, Normal S2 Telemetry: Positive: Atrial fibrillation Abdomen Exam: Positive: Normal bowel sounds, Soft, Negative: Hepatospenomegaly, Tenderness Extremity Exam: Positive: Normal pulses, Negative: Clubbing, Cyanosis, Edema Skin Exam: Positive: Nl turgor and temperature, Negative: Breakdown, Rash Assessment /Plan Problems (1) Postobstructive pneumonia Status: Acute Problem Text: continue with zosyn and azithromycin (2) Atrial fibrillation with RVR Status: Acute Problem Text: still in afib rate is being controlled with digoxin and metoprolol. will need to start on anticoagulation on dc. (3) Hypertension Status: Chronic Problem Text: now bp soft benicar dose reduced with hold parameters. (4) Iron deficiency anemia Status: Chronic (5) Celiac disease Status: Chronic (6) History of prostate cancer Status: Chronic Problem Text: had radical prostatectomy in 2013. (7) Abnormal CT scan of lung Status: Acute Problem Text: with spiculated nodules, mediastinal lymph nodes and patchy consolidations differential includes infection , inflammation or metastatic malignancy had lung biopsy shows chronic interstitial inflammation. (8) Leucopenia Status: Acute Problem Text: infection or medication related. Plan/VTE VTE Prophylaxis Ordered?: Yes VS, I&O, 24H, Fishbone Vital Signs/I&O Vital Signs Date Time Temp Pulse Resp B/P Pulse Ox O2 Delivery O2 Flow Rate FiO2 10/15/16 08:38 95 114/73 10/15/16 08:00 98.0 18 97 Room Air 10/13/16 15:10 I&O- Last 24 Hours up to 6 AM 10/15/16 06:00 Intake Total 1450 ml Output Total 1650 ml Balance -200 ml Laboratory Data 24H LABS Laboratory Tests 2 10/15/16 05:42: Blood Urea Nitrogen 16, Creatinine 1.08, Sodium Level 138, Potassium Level 4.1, Chloride Level 105, Carbon Dioxide Level 26, Calcium Level 8.0L, Aspartate Amino Transf (AST/SGOT) 80H, Alanine Aminotransferase (ALT/SGPT) 55, Alkaline Phosphatase 181H, Total Bilirubin 0.4, Total Protein 6.3L, Albumin 2.5L, Albumin /Globulin Ratio 0.66L, Anion Gap 7L, White Blood Count 2.6L, Red Blood Count 4.41, Hemoglobin 12.2L, Hematocrit 37.3L, Mean Corpuscular Volume 84.4, Mean Corpuscular Hemoglobin 27.5, Mean Corpuscular Hemoglobin Concent 32.6, Red Cell Distribution Width 14.2, Platelet Count 181, Neutrophils (%) (Auto) 68.3H, Lymphocytes (%) (Auto) 18.0L, Monocytes (%) (Auto) 8.0H, Eosinophils (%) (Auto) 0.8, Basophils (%) (Auto) 0.2, Neutrophils # (Auto) 1.8, Lymphocytes # (Auto) 0.5L, Monocytes # (Auto) 0.2, Eosinophils # (Auto) 0.0, Basophils # (Auto) 0.0, Digoxin Level 1.0, Glomerular Filtration Rate > 60.0, Large Unclassified Cells # 0.1, Large Unclassified Cells % 4.7H CBC/BMP Laboratory Tests 10/15/16 05:42 Calcium Level 8.0 L, Aspartate Amino Transf (AST/SGOT) 80 H, Alanine Aminotransferase (ALT/SGPT) 55, Alkaline Phosphatase 181 H, Total Bilirubin 0.4 , Total Protein 6.3 L, Albumin 2.5 L, Red Blood Count 4.41, Mean Corpuscular Volume 84.4, Mean Corpuscular Hemoglobin 27.5, Mean Corpuscular Hemoglobin Concent 32.6, Red Cell Distribution Width 14.2, Neutrophils (%) (Auto) 68.3 H, Lymphocytes (%) (Auto) 18.0 L, Monocytes (%) (Auto) 8.0 H, Eosinophils (%) (Auto ) 0.8, Basophils (%) (Auto) 0.2, Neutrophils # (Auto) 1.8, Lymphocytes # (Auto) 0.5 L, Monocytes # (Auto) 0.2, Eosinophils # (Auto) 0.0, Basophils # (Auto) 0.0 Microbiology Microbiology 10/11/16 Blood Culture - Preliminary, Resulted No Growth after 72 hours. All specime... 10/11/16 Blood Culture - Preliminary, Resulted No Growth after 72 hours. All specime... 10/13/16 Acid Fast Stain, Received Pending 10/13/16 Mycobacterial Culture, Received Pending 10/13/16 Fungal Smear, Received Pending 10/13/16 Fungal Culture, Received Pending 10/13/16 Gram Stain - Final, Complete 10/13/16 Bacterial Culture - Final, Complete RICKY ZIMMERMAN MD Oct 15, 2016 13:13
[2016-10-15 16:00] VITALS: BP 113/66
[2016-10-15 19:00] VITALS: BP 137/83
[2016-10-15 20:00] VITALS: BP 132/63
[2016-10-16] VITALS: BP 103/54
[2016-10-16] MEDS: PIPERACILLIN/TAZOBACTAM SOD 3.375 GM in D5W MINI-BAG PLUS 50 ML IV SCH ×4 (00:37→19:57)
[2016-10-16 04:00] VITALS: BP 119/72
[2016-10-16] MEDS ORDERED: ELIQ5TAB PO (06:48)
[2016-10-16 07:20] LABS: ALBUMIN 2.3 GM/DL (3.2-5.2); ALBUMIN/GLOBULIN RATIO 0.64 (1.00-1.93); ALKALINE PHOSPHATASE 224 U/L (45-117); ALT/SGPT 64 U/L (12-78); ANION GAP 8 MEQ/L (8-16); AST/SGOT 92 U/L (15-37); BILIRUBIN,TOTAL 0.5 MG/DL (0.2-1.0); BLOOD UREA NITROGEN 13 MG/DL (7-18); CALCIUM LEVEL 7.9 MG/DL (8.8-10.2); CARBON DIOXIDE LEVEL 24 MEQ/L (21-32); CHLORIDE LEVEL 104 MEQ/L (98-107); CREATININE FOR GFR 0.97 MG/DL (0.70-1.30); GLOMERULAR FILTRATION RATE > 60.0 (>42); GLUCOSE, FASTING 102 MG/DL (83-110); POTASSIUM SERUM 3.8 MEQ/L (3.5-5.1); SODIUM LEVEL 136 MEQ/L (136-145); TOTAL PROTEIN 5.9 GM/DL (6.4-8.2)
[2016-10-16 07:44] LABS: BASO % 0.4 % (0.0-1.0); EOS % 0.5 % (0.0-3.0); LARGE UNSTAINED CELL # 0.1 K/mm3 (0.0-0.4); LYMPH # 0.4 K/mm3 (1.5-4.5); LYMPH % 14.7 % (24.0-44.0); MEAN CORPUSCULAR HEMOGLOBIN 27.4 pg (27.0-33.0); MEAN CORPUSCULAR HGB CONC 32.5 g/dl (32.0-36.5); MEAN CORPUSCULAR VOLUME 84.1 fl (80.0-96.0); MONO # 0.2 K/mm3 (0.0-0.8); MONO % 7.2 % (0.0-5.0); NEUTROPHILS # 1.9 K/mm3 (1.8-7.7); NEUTROPHILS % 74.2 % (36.0-66.0); PLATELET COUNT, AUTOMATED 197 k/mm3 (150-450); RED CELL DISTRIBUTION WIDTH 14.2 % (11.5-14.5); WHITE BLOOD COUNT 2.5 K/mm3 (4.0-10.0)
[2016-10-16 08:00] VITALS: BP 123/68
[2016-10-16] MEDS: OLMESARTAN MEDOXOMIL 20 MG TAB (BENICAR) PO SCH (09:00)
[2016-10-16] MEDS: OCUVITE 1 TAB PO SCH ×2 (09:38→20:22)
[2016-10-16] MEDS: VITAMIN D 1,000 INTERNATIONAL UNITS TABLET PO SCH (09:39)
[2016-10-16] MEDS: DIGOXIN 0.25 MG TAB PO SCH (09:39)
[2016-10-16] MEDS: FERROUS SULFATE 325MG TAB PO SCH (09:40)
[2016-10-16] MEDS: AZITHROMYCIN 250 MG TAB PO SCH (09:40)
[2016-10-16] MEDS: METOPROLOL TART 25 MG TABLET PO SCH ×2 (09:48→20:22)
[2016-10-16] MEDS: APIXABAN 5 MG TAB (ELIQUIS) PO SCH ×2 (09:48→20:22)
--- NOTE | 2016-10-16 11:09 | IPNPDOC ---
Subjective Date Seen The patient was seen on 10/16/16. Subjective Chief Complaint/HPI The patient is a 71-year-old male admitted with a reason for visit of Atrial Fib With Rvr. Events since last encounter feeling better, SOB much improved, fever spikes coming down had t max of 100.1 last night. appetite improved, no chest pain or sob , no nausea or vomiting or diarrhea. Objective Physical Examination General Exam: Positive: Alert, Cooperative, No Acute Distress Eye Exam: Positive: Conjunctiva & lids normal, EOMI, PERRLA, Negative: Sclera icteric ENT Exam: Positive: Atraumatic, Mucous membr. moist/pink, Pharynx Normal Neck Exam: Positive: Supple, Negative: JVD, thyromegaly Chest Exam: Positive: Clear to auscultation, Normal air movement Heart Exam: Positive: Irregular Rhythm, Normal S1, Normal S2 Telemetry: Positive: Atrial fibrillation Abdomen Exam: Positive: Normal bowel sounds, Soft, Negative: Hepatospenomegaly, Tenderness Extremity Exam: Positive: Normal pulses, Negative: Clubbing, Cyanosis, Edema Skin Exam: Positive: Nl turgor and temperature, Negative: Breakdown, Rash Assessment /Plan Problems (1) Postobstructive pneumonia Status: Acute Problem Text: continue with zosyn and azithromycin (2) Atrial fibrillation with RVR Status: Acute Problem Text: still in afib rate is being controlled with digoxin and metoprolol. try to increase dose of metoprolol. started on eliquis. (3) Hypertension Status: Chronic Problem Text: now bp soft will stop benicar, get echo. try to increase metoprolol (4) Iron deficiency anemia Status: Chronic (5) Celiac disease Status: Chronic (6) History of prostate cancer Status: Chronic Problem Text: had radical prostatectomy in 2013. (7) Abnormal CT scan of lung Status: Acute Problem Text: with spiculated nodules, mediastinal lymph nodes and patchy consolidations differential includes infection , inflammation or metastatic malignancy had lung biopsy shows chronic interstitial inflammation. (8) Leucopenia Status: Acute Problem Text: infection or medication related. Plan/VTE VTE Prophylaxis Ordered?: Yes VS, I&O, 24H, Fishbone Vital Signs/I&O Vital Signs Date Time Temp Pulse Resp B/P Pulse Ox O2 Delivery O2 Flow Rate FiO2 10/16/16 09:48 89 110/62 10/16/16 04:00 99.3 20 96 Room Air 10/13/16 15:10 I&O- Last 24 Hours up to 6 AM 10/16/16 06:00 Intake Total 2380 ml Output Total 675 ml Balance 1705 ml Laboratory Data 24H LABS Laboratory Tests 2 10/16/16 06:25: Blood Urea Nitrogen 13, Creatinine 0.97, Sodium Level 136, Potassium Level 3.8, Chloride Level 104, Carbon Dioxide Level 24, Calcium Level 7.9L, Aspartate Amino Transf (AST/SGOT) 92H, Alanine Aminotransferase (ALT/SGPT) 64, Alkaline Phosphatase 224H, Total Bilirubin 0.5, Total Protein 5.9L, Albumin 2.3L, Albumin /Globulin Ratio 0.64L, Anion Gap 8, White Blood Count 2.5L, Red Blood Count 4.07L, Hemoglobin 11.1L, Hematocrit 34.2L, Mean Corpuscular Volume 84.1, Mean Corpuscular Hemoglobin 27.4, Mean Corpuscular Hemoglobin Concent 32.5, Red Cell Distribution Width 14.2, Platelet Count 197, Neutrophils (%) (Auto) 74.2H, Lymphocytes (%) (Auto) 14.7L, Monocytes (%) (Auto) 7.2H, Eosinophils (%) (Auto) 0.5, Basophils (%) (Auto) 0.4, Neutrophils # (Auto) 1.9, Lymphocytes # (Auto) 0.4L, Monocytes # (Auto) 0.2, Eosinophils # (Auto) 0.0, Basophils # (Auto) 0.0, Glomerular Filtration Rate > 60.0, Large Unclassified Cells # 0.1, Large Unclassified Cells % 3.0 CBC/BMP Laboratory Tests 10/16/16 06:25 Calcium Level 7.9 L, Aspartate Amino Transf (AST/SGOT) 92 H, Alanine Aminotransferase (ALT/SGPT) 64, Alkaline Phosphatase 224 H, Total Bilirubin 0.5 , Total Protein 5.9 L, Albumin 2.3 L, Red Blood Count 4.07 L, Mean Corpuscular Volume 84.1, Mean Corpuscular Hemoglobin 27.4, Mean Corpuscular Hemoglobin Concent 32.5, Red Cell Distribution Width 14.2, Neutrophils (%) (Auto) 74.2 H, Lymphocytes (%) (Auto) 14.7 L, Monocytes (%) (Auto) 7.2 H, Eosinophils (%) (Auto ) 0.5, Basophils (%) (Auto) 0.4, Neutrophils # (Auto) 1.9, Lymphocytes # (Auto) 0.4 L, Monocytes # (Auto) 0.2, Eosinophils # (Auto) 0.0, Basophils # (Auto) 0.0 Microbiology Microbiology 10/11/16 Blood Culture - Preliminary, Resulted No Growth after 72 hours. All specime... 10/11/16 Blood Culture - Preliminary, Resulted No Growth after 72 hours. All specime... 10/13/16 Acid Fast Stain, Received Pending 10/13/16 Mycobacterial Culture, Received Pending 10/13/16 Fungal Smear, Received Pending 10/13/16 Fungal Culture, Received Pending 10/13/16 Gram Stain - Final, Complete 10/13/16 Bacterial Culture - Final, Complete RICKY ZIMMERMAN MD Oct 16, 2016 11:09
[2016-10-16 12:00] VITALS: BP 110/69
[2016-10-16 16:00] VITALS: BP 133/81
[2016-10-16 19:35] VITALS: BP 127/75
[2016-10-16] MEDS: ALPRAZolam 0.25 MG TAB PO PRN (23:28)
[2016-10-17] VITALS: BP 119/66
[2016-10-17] MEDS: PIPERACILLIN/TAZOBACTAM SOD 3.375 GM in D5W MINI-BAG PLUS 50 ML IV SCH ×4 (01:48→18:42)
[2016-10-17] MEDS: ACETAMINOPHEN TAB 650MG DOSE (2X325MG) PO PRN ×3 (01:49→20:19)
[2016-10-17 05:00] VITALS: BP 110/64
[2016-10-17 07:59] LABS: BASO % 0.4 % (0.0-1.0); EOS % 0.8 % (0.0-3.0); LARGE UNSTAINED CELL # 0.1 K/mm3 (0.0-0.4); LYMPH # 0.4 K/mm3 (1.5-4.5); LYMPH % 14.2 % (24.0-44.0); MEAN CORPUSCULAR HEMOGLOBIN 26.9 pg (27.0-33.0); MEAN CORPUSCULAR HGB CONC 31.9 g/dl (32.0-36.5); MEAN CORPUSCULAR VOLUME 84.4 fl (80.0-96.0); MONO # 0.2 K/mm3 (0.0-0.8); MONO % 7.3 % (0.0-5.0); NEUTROPHILS # 1.7 K/mm3 (1.8-7.7); NEUTROPHILS % 73.3 % (36.0-66.0); PLATELET COUNT, AUTOMATED 184 k/mm3 (150-450); RED CELL DISTRIBUTION WIDTH 14.1 % (11.5-14.5); WHITE BLOOD COUNT 2.3 K/mm3 (4.0-10.0)
[2016-10-17 08:00] VITALS: BP 109/68
[2016-10-17 08:07] LABS: ANION GAP 7 MEQ/L (8-16); AST/SGOT 113 U/L (15-37); BLOOD UREA NITROGEN 13 MG/DL (7-18); CARBON DIOXIDE LEVEL 27 MEQ/L (21-32); CHLORIDE LEVEL 103 MEQ/L (98-107); CREATININE FOR GFR 1.12 MG/DL (0.70-1.30); GLOMERULAR FILTRATION RATE > 60.0 (>42); GLUCOSE, FASTING 97 MG/DL (83-110); POTASSIUM SERUM 4.1 MEQ/L (3.5-5.1); SODIUM LEVEL 137 MEQ/L (136-145)
[2016-10-17 08:08] LABS: ALBUMIN 2.4 GM/DL (3.2-5.2); ALBUMIN/GLOBULIN RATIO 0.65 (1.00-1.93); ALKALINE PHOSPHATASE 291 U/L (45-117); ALT/SGPT 78 U/L (12-78); BILIRUBIN,TOTAL 0.7 MG/DL (0.2-1.0); TOTAL PROTEIN 6.1 GM/DL (6.4-8.2)
[2016-10-17] MEDS: OCUVITE 1 TAB PO SCH ×2 (09:58→20:19)
[2016-10-17] MEDS: DIGOXIN 0.25 MG TAB PO SCH (09:58)
[2016-10-17] MEDS: VITAMIN D 1,000 INTERNATIONAL UNITS TABLET PO SCH (09:59)
[2016-10-17] MEDS: FERROUS SULFATE 325MG TAB PO SCH (09:59)
[2016-10-17] MEDS: METOPROLOL TART 25 MG TABLET PO SCH ×2 (10:00→20:20)
[2016-10-17] MEDS: APIXABAN 5 MG TAB (ELIQUIS) PO SCH ×2 (10:33→20:20)
--- NOTE | 2016-10-17 11:49 | IPNPDOC ---
Subjective Date Seen The patient was seen on 10/17/16. Subjective Chief Complaint/HPI The patient is a 71-year-old male admitted with a reason for visit of Atrial Fib With Rvr. Events since last encounter no complaints today , feeling better every day , today he is going to work with PT to negotiate stairs, pulse rate still around 90 to 100. Had again a low grade temp this am. Objective Physical Examination General Exam: Positive: Alert, Cooperative, No Acute Distress Eye Exam: Positive: Conjunctiva & lids normal, EOMI, PERRLA, Negative: Sclera icteric ENT Exam: Positive: Atraumatic, Mucous membr. moist/pink, Pharynx Normal Neck Exam: Positive: Supple, Negative: JVD, thyromegaly Chest Exam: Positive: Clear to auscultation, Normal air movement Heart Exam: Positive: Irregular Rhythm, Normal S1, Normal S2 Telemetry: Positive: Atrial fibrillation Abdomen Exam: Positive: Normal bowel sounds, Soft, Negative: Hepatospenomegaly, Tenderness Extremity Exam: Positive: Normal pulses, Negative: Clubbing, Cyanosis, Edema Skin Exam: Positive: Nl turgor and temperature, Negative: Breakdown, Rash Assessment /Plan Problems (1) Postobstructive pneumonia Status: Acute Problem Text: continue with zosyn and azithromycin (2) Atrial fibrillation with RVR Status: Acute Problem Text: still in afib rate is being controlled with digoxin and metoprolol. try to increase dose of metoprolol. started on eliquis. (3) Hypertension Status: Chronic Problem Text: now bp soft will stop benicar, get echo. try to increase metoprolol (4) Iron deficiency anemia Status: Chronic (5) Celiac disease Status: Chronic (6) History of prostate cancer Status: Chronic Problem Text: had radical prostatectomy in 2013. (7) Abnormal CT scan of lung Status: Acute Problem Text: with spiculated nodules, mediastinal lymph nodes and patchy consolidations differential includes infection , inflammation or metastatic malignancy had lung biopsy shows chronic interstitial inflammation. (8) Leucopenia Status: Acute Problem Text: infection or medication related. Plan/VTE VTE Prophylaxis Ordered?: Yes VS, I&O, 24H, Fishbone Vital Signs/I&O Vital Signs Date Time Temp Pulse Resp B/P Pulse Ox O2 Delivery O2 Flow Rate FiO2 10/17/16 10:00 112 123/70 10/17/16 09:00 Room Air 10/17/16 08:00 97.2 18 96 10/13/16 15:10 I&O- Last 24 Hours up to 6 AM 10/17/16 06:00 Intake Total 1370 ml Output Total 0 ml Balance 1370 ml Laboratory Data 24H LABS Laboratory Tests 2 10/17/16 07:00: Blood Urea Nitrogen 13, Creatinine 1.12, Sodium Level 137, Potassium Level 4.1, Chloride Level 103, Carbon Dioxide Level 27, Calcium Level 8.0L, Aspartate Amino Transf (AST/SGOT) 113H, Alanine Aminotransferase (ALT/SGPT) 78, Alkaline Phosphatase 291H, Total Bilirubin 0.7, Total Protein 6.1L, Albumin 2.4L, Albumin /Globulin Ratio 0.65L, Anion Gap 7L, White Blood Count 2.3L, Red Blood Count 4.35, Hemoglobin 11.7L, Hematocrit 36.7L, Mean Corpuscular Volume 84.4, Mean Corpuscular Hemoglobin 26.9L, Mean Corpuscular Hemoglobin Concent 31.9L, Red Cell Distribution Width 14.1, Platelet Count 184, Neutrophils (%) (Auto) 73.3H, Lymphocytes (%) (Auto) 14.2L, Monocytes (%) (Auto) 7.3H, Eosinophils (%) (Auto) 0.8, Basophils (%) (Auto) 0.4, Neutrophils # (Auto) 1.7L, Lymphocytes # (Auto) 0.4L, Monocytes # (Auto) 0.2, Eosinophils # (Auto) 0.0, Basophils # (Auto) 0.0, Glomerular Filtration Rate > 60.0, Large Unclassified Cells # 0.1, Large Unclassified Cells % 4.0 CBC/BMP Laboratory Tests 10/17/16 07:00 Calcium Level 8.0 L, Aspartate Amino Transf (AST/SGOT) 113 H, Alanine Aminotransferase (ALT/SGPT) 78, Alkaline Phosphatase 291 H, Total Bilirubin 0.7 , Total Protein 6.1 L, Albumin 2.4 L, Red Blood Count 4.35, Mean Corpuscular Volume 84.4, Mean Corpuscular Hemoglobin 26.9 L, Mean Corpuscular Hemoglobin Concent 31.9 L, Red Cell Distribution Width 14.1, Neutrophils (%) (Auto) 73.3 H , Lymphocytes (%) (Auto) 14.2 L, Monocytes (%) (Auto) 7.3 H, Eosinophils (%) ( Auto) 0.8, Basophils (%) (Auto) 0.4, Neutrophils # (Auto) 1.7 L, Lymphocytes # ( Auto) 0.4 L, Monocytes # (Auto) 0.2, Eosinophils # (Auto) 0.0, Basophils # (Auto ) 0.0 Microbiology Microbiology 10/11/16 Blood Culture - Final, Complete NO GROWTH AFTER 5 DAYS 10/11/16 Blood Culture - Final, Complete NO GROWTH AFTER 5 DAYS 10/13/16 Acid Fast Stain - Final, Resulted 10/13/16 Mycobacterial Culture, Resulted Pending 10/13/16 Fungal Smear, Resulted Pending 10/13/16 Fungal Culture, Resulted Pending 10/13/16 Gram Stain - Final, Complete 10/13/16 Bacterial Culture - Final, Complete RICKY ZIMMERMAN MD Oct 17, 2016 11:49
[2016-10-17 12:00] VITALS: BP 117/73
[2016-10-17 16:00] VITALS: BP 98/68
[2016-10-17 20:00] VITALS: BP 130/70
[2016-10-17] MEDS: ALPRAZolam 0.25 MG TAB PO PRN (20:30)
[2016-10-18] VITALS (7 sets, daily range): BP systolic 109–128; BP diastolic 52–78
[2016-10-18] MEDS: PIPERACILLIN/TAZOBACTAM SOD 3.375 GM in D5W MINI-BAG PLUS 50 ML IV SCH ×4 (00:07→19:17)
[2016-10-18] MEDS: ACETAMINOPHEN TAB 650MG DOSE (2X325MG) PO PRN ×3 (02:23→21:52)
[2016-10-18 06:21] LABS: BASO % 0.7 % (0.0-1.0); EOS % 0.1 % (0.0-3.0); LARGE UNSTAINED CELL # 0.1 K/mm3 (0.0-0.4); LARGE UNSTAINED CELL % 3.4 % (0.0-4.0); LYMPH # 0.3 K/mm3 (1.5-4.5); LYMPH % 12.5 % (24.0-44.0); MEAN CORPUSCULAR HEMOGLOBIN 27.1 pg (27.0-33.0); MEAN CORPUSCULAR HGB CONC 31.8 g/dl (32.0-36.5); MEAN CORPUSCULAR VOLUME 85.1 fl (80.0-96.0); MONO # 0.1 K/mm3 (0.0-0.8); MONO % 5.1 % (0.0-5.0); NEUTROPHILS # 1.8 K/mm3 (1.8-7.7); NEUTROPHILS % 78.2 % (36.0-66.0); PLATELET COUNT, AUTOMATED 189 k/mm3 (150-450); RED CELL DISTRIBUTION WIDTH 14.5 % (11.5-14.5); WHITE BLOOD COUNT 2.3 K/mm3 (4.0-10.0)
[2016-10-18 06:49] LABS: ALBUMIN 2.4 GM/DL (3.2-5.2); ALBUMIN/GLOBULIN RATIO 0.71 (1.00-1.93); ALKALINE PHOSPHATASE 452 U/L (45-117); ALT/SGPT 110 U/L (12-78); ANION GAP 7 MEQ/L (8-16); AST/SGOT 164 U/L (15-37); BILIRUBIN,TOTAL 0.7 MG/DL (0.2-1.0); BLOOD UREA NITROGEN 17 MG/DL (7-18); CALCIUM LEVEL 7.8 MG/DL (8.8-10.2); CARBON DIOXIDE LEVEL 28 MEQ/L (21-32); CHLORIDE LEVEL 102 MEQ/L (98-107); CREATININE FOR GFR 1.12 MG/DL (0.70-1.30); GLOMERULAR FILTRATION RATE > 60.0 (>42); GLUCOSE, FASTING 105 MG/DL (83-110); POTASSIUM SERUM 4.4 MEQ/L (3.5-5.1); SODIUM LEVEL 137 MEQ/L (136-145); TOTAL PROTEIN 5.8 GM/DL (6.4-8.2)
[2016-10-18] MEDS: DIGOXIN 0.25 MG TAB PO SCH (09:16)
[2016-10-18] MEDS: FERROUS SULFATE 325MG TAB PO SCH (09:16)
[2016-10-18] MEDS: APIXABAN 5 MG TAB (ELIQUIS) PO SCH ×2 (09:16→20:16)
[2016-10-18] MEDS: METOPROLOL TART 25 MG TABLET PO SCH ×2 (09:17→20:16)
[2016-10-18] MEDS: OCUVITE 1 TAB PO SCH ×2 (09:17→20:16)
[2016-10-18] MEDS: VITAMIN D 1,000 INTERNATIONAL UNITS TABLET PO SCH (09:17)
--- NOTE | 2016-10-18 11:28 | IPNPDOC ---
Subjective Date Seen The patient was seen on 10/18/16. Subjective Chief Complaint/HPI The patient is a 71-year-old male admitted with a reason for visit of Atrial Fib With Rvr. Events since last encounter again had low grade fever last night , but overall feeling much better, SOB much improved. no chest castaneda or cough , no abdominal pain , nausea or vomiting or diarrhea. Objective Physical Examination General Exam: Positive: Alert, Cooperative, No Acute Distress Eye Exam: Positive: Conjunctiva & lids normal, EOMI, PERRLA, Negative: Sclera icteric ENT Exam: Positive: Atraumatic, Mucous membr. moist/pink, Pharynx Normal Neck Exam: Positive: Supple, Negative: JVD, thyromegaly Chest Exam: Positive: Clear to auscultation, Normal air movement Heart Exam: Positive: Irregular Rhythm, Normal S1, Normal S2 Telemetry: Positive: Atrial fibrillation Abdomen Exam: Positive: Normal bowel sounds, Soft, Negative: Hepatospenomegaly, Tenderness Extremity Exam: Positive: Normal pulses, Negative: Clubbing, Cyanosis, Edema Skin Exam: Positive: Nl turgor and temperature, Negative: Breakdown, Rash Assessment /Plan Problems (1) Postobstructive pneumonia Status: Acute Problem Text: continue with zosyn and azithromycin (2) Atrial fibrillation with RVR Status: Acute Problem Text: still in afib rate is being controlled with digoxin and metoprolol. try to increase dose of metoprolol. started on eliquis. (3) Hypertension Status: Chronic Problem Text: now bp soft will stop benicar, get echo. try to increase metoprolol (4) Iron deficiency anemia Status: Chronic (5) Celiac disease Status: Chronic (6) History of prostate cancer Status: Chronic Problem Text: had radical prostatectomy in 2013. (7) Abnormal CT scan of lung Status: Acute Problem Text: with spiculated nodules, mediastinal lymph nodes and patchy consolidations differential includes infection , inflammation or metastatic malignancy had lung biopsy shows chronic interstitial inflammation. (8) Leucopenia Status: Acute Problem Text: infection or medication related. Plan/VTE VTE Prophylaxis Ordered?: Yes VS, I&O, 24H, Fishbone Vital Signs/I&O Vital Signs Date Time Temp Pulse Resp B/P Pulse Ox O2 Delivery O2 Flow Rate FiO2 10/18/16 09:17 116 145/72 10/18/16 09:00 Room Air 10/18/16 08:00 99.1 18 94 10/13/16 15:10 I&O- Last 24 Hours up to 6 AM 10/18/16 06:00 Intake Total 1300 ml Output Total 0 ml Balance 1300 ml Laboratory Data 24H LABS Laboratory Tests 2 10/18/16 06:04: Blood Urea Nitrogen 17, Creatinine 1.12, Sodium Level 137, Potassium Level 4.4, Chloride Level 102, Carbon Dioxide Level 28, Calcium Level 7.8L, Aspartate Amino Transf (AST/SGOT) 164H, Alanine Aminotransferase (ALT/SGPT) 110H, Alkaline Phosphatase 452H, Total Bilirubin 0.7, Total Protein 5.8L, Albumin 2.4L , Albumin/Globulin Ratio 0.71L, Anion Gap 7L, White Blood Count 2.3L, Red Blood Count 4.21L, Hemoglobin 11.4L, Hematocrit 35.9L, Mean Corpuscular Volume 85.1, Mean Corpuscular Hemoglobin 27.1, Mean Corpuscular Hemoglobin Concent 31.8L, Red Cell Distribution Width 14.5, Platelet Count 189, Neutrophils (%) (Auto) 78.2H, Lymphocytes (%) (Auto) 12.5L, Monocytes (%) (Auto) 5.1H, Eosinophils (%) (Auto) 0.1, Basophils (%) (Auto) 0.7, Neutrophils # (Auto) 1.8, Lymphocytes # ( Auto) 0.3L, Monocytes # (Auto) 0.1, Eosinophils # (Auto) 0.0, Basophils # (Auto ) 0.0, Glomerular Filtration Rate > 60.0, Large Unclassified Cells # 0.1, Large Unclassified Cells % 3.4 CBC/BMP Laboratory Tests 10/18/16 06:04 Calcium Level 7.8 L, Aspartate Amino Transf (AST/SGOT) 164 H, Alanine Aminotransferase (ALT/SGPT) 110 H, Alkaline Phosphatase 452 H, Total Bilirubin 0.7, Total Protein 5.8 L, Albumin 2.4 L, Red Blood Count 4.21 L, Mean Corpuscular Volume 85.1, Mean Corpuscular Hemoglobin 27.1, Mean Corpuscular Hemoglobin Concent 31.8 L, Red Cell Distribution Width 14.5, Neutrophils (%) ( Auto) 78.2 H, Lymphocytes (%) (Auto) 12.5 L, Monocytes (%) (Auto) 5.1 H, Eosinophils (%) (Auto) 0.1, Basophils (%) (Auto) 0.7, Neutrophils # (Auto) 1.8, Lymphocytes # (Auto) 0.3 L, Monocytes # (Auto) 0.1, Eosinophils # (Auto) 0.0, Basophils # (Auto) 0.0 Microbiology Microbiology 10/11/16 Blood Culture - Final, Complete NO GROWTH AFTER 5 DAYS 10/11/16 Blood Culture - Final, Complete NO GROWTH AFTER 5 DAYS 10/13/16 Acid Fast Stain - Final, Resulted 10/13/16 Mycobacterial Culture, Resulted Pending 10/13/16 Fungal Smear, Resulted Pending 10/13/16 Fungal Culture, Resulted Pending 10/13/16 Gram Stain - Final, Complete 10/13/16 Bacterial Culture - Final, Complete RICKY ZIMMERMAN MD Oct 18, 2016 11:28
[2016-10-18] MEDS: ALPRAZolam 0.25 MG TAB PO PRN (21:52)
[2016-10-19] MEDS: PIPERACILLIN/TAZOBACTAM SOD 3.375 GM in D5W MINI-BAG PLUS 50 ML IV SCH ×2 (00:32→06:19)
[2016-10-19 04:30] VITALS: BP 130/75
[2016-10-19] MEDS: ACETAMINOPHEN TAB 650MG DOSE (2X325MG) PO PRN ×3 (05:41→22:00)
--- NOTE | 2016-10-19 07:11 | ECHO ---
DATE OF PROCEDURE: 10/17/2016 REFERRING PROVIDER: Dr. Maren Solorzano PATIENT LOCATION: Room 4116. REASON FOR THE ECHOCARDIOGRAM: Shortness of breath. 2D MEASUREMENTS: IVS: 1.5 cm LV: 4.5 cm LVPW: 1.5 cm LA: 4.0 cm Aorta: 3.7 cm IVC: 1.4 cm DOPPLER MEASUREMENTS: Peak velocity across the aortic valve: 1.4 m/s Peak velocity across the LVOT: 0.92 m/s Mitral E 0.88. Maximum tricuspid valve velocity: 2.5 m/s 2D COMMENTS: 1. Mildly increased left ventricular wall thickness with normal left ventricular size and a normal global left ventricular systolic function estimated at 65-70%. 2. Borderline enlarged left atrium. The right atrium also appeared to be borderline enlarged. Normal right ventricle. 3. The atrial septum appeared to be normal without evidence of defect or shunt. 4. Borderline dilated aortic root at 3.7 cm. 5. No pericardial effusion seen. 6. Mildly calcified aortic valve with normal leaflet excursion. Mildly calcified mitral annulus with normal anterior mitral valve leaflet motion. Normal tricuspid valve and pulmonic valve. The proximal pulmonary artery branches were not well visualized. 7. The inferior vena cava was normal in size, central venous pressure is most likely normal. DOPPLER: It detects trace aortic regurgitation, trace to mild mitral regurgitation, and trace to mild tricuspid regurgitation. The calculated pulmonary artery systolic pressure varies between 30-40 mmHg. Assessment of the left ventricular diastolic function was limited in view of the underlying atrial flutter/fibrillation. IMPRESSION: 1. Normal global left ventricular systolic function with probably moderate concentric left ventricular hypertrophy. 2. Borderline enlarged left atrium with mitral annulus calcification and trace to mild mitral regurgitation. 3. Trace to mild tricuspid regurgitation with mild pulmonary hypertension. 4. Isolated borderline enlarged aortic root at 3.7 cm. Copy To: Dr. Maren Solorzano [facility]
[2016-10-19 08:00] VITALS: BP 119/68
[2016-10-19] MEDS: OCUVITE 1 TAB PO SCH ×2 (08:52→20:48)
[2016-10-19] MEDS: APIXABAN 5 MG TAB (ELIQUIS) PO SCH ×2 (08:52→20:48)
[2016-10-19] MEDS: VITAMIN D 1,000 INTERNATIONAL UNITS TABLET PO SCH (08:53)
[2016-10-19] MEDS: DIGOXIN 0.25 MG TAB PO SCH (08:53)
[2016-10-19] MEDS: FERROUS SULFATE 325MG TAB PO SCH (08:53)
[2016-10-19] MEDS: METOPROLOL TART 25 MG TABLET PO SCH ×2 (08:56→20:49)
--- NOTE | 2016-10-19 09:44 | IPNPDOC ---
Subjective Date Seen The patient was seen on 10/19/16. Subjective Chief Complaint/HPI The patient is a 71-year-old male admitted with a reason for visit of Atrial Fib With Rvr. Events since last encounter patient again spiked a fever or 102 this am . No new complaints, no new cough or congestion or sore throat, no ear ache , no diarrhea or abdominal pain , no dysuria. NO leg pain or swelling. Objective Physical Examination General Exam: Positive: Alert, Cooperative, No Acute Distress Eye Exam: Positive: Conjunctiva & lids normal, EOMI, PERRLA, Negative: Sclera icteric ENT Exam: Positive: Atraumatic, Mucous membr. moist/pink, Pharynx Normal Neck Exam: Positive: Supple, Negative: JVD, thyromegaly Chest Exam: Positive: Clear to auscultation, Normal air movement Heart Exam: Positive: Irregular Rhythm, Normal S1, Normal S2 Telemetry: Positive: Atrial fibrillation Abdomen Exam: Positive: Normal bowel sounds, Soft, Negative: Hepatospenomegaly, Tenderness Extremity Exam: Positive: Normal pulses, Negative: Clubbing, Cyanosis, Edema Skin Exam: Positive: Nl turgor and temperature, Negative: Breakdown, Rash Assessment /Plan Problems (1) Postobstructive pneumonia Status: Acute Problem Text: patient finished 8 days of zosyn and 5 days of azithromycin will change to po antibiotics. (2) Atrial fibrillation with RVR Status: Acute Problem Text: still in afib rate is being controlled with digoxin and metoprolol. try to increase dose of metoprolol. started on eliquis. (3) Hypertension Status: Chronic Problem Text: now bp soft stopped benicar, get echo. try to increase metoprolol (4) Iron deficiency anemia Status: Chronic (5) Celiac disease Status: Chronic (6) History of prostate cancer Status: Chronic Problem Text: had radical prostatectomy in 2014. (7) Abnormal CT scan of lung Status: Acute Problem Text: with spiculated nodules, mediastinal lymph nodes and patchy consolidations differential includes infection , inflammation or metastatic malignancy had lung biopsy shows chronic interstitial inflammation. Has to follow u;p with Dr Morgan. (8) Leucopenia Status: Acute Response to Treatment: Stable Problem Text: infection or medication related. Plan/VTE VTE Prophylaxis Ordered?: Yes VS, I&O, 24H, Fishbone Vital Signs/I&O Vital Signs Date Time Temp Pulse Resp B/P Pulse Ox O2 Delivery O2 Flow Rate FiO2 10/19/16 08:56 104 130/75 10/19/16 08:00 Room Air 10/19/16 08:00 97.6 113 95 10/13/16 15:10 I&O- Last 24 Hours up to 6 AM 10/19/16 06:00 Intake Total 2080 ml Balance 2080 ml Laboratory Data Microbiology Microbiology 10/11/16 Blood Culture - Final, Complete NO GROWTH AFTER 5 DAYS 10/11/16 Blood Culture - Final, Complete NO GROWTH AFTER 5 DAYS 10/13/16 Acid Fast Stain - Final, Resulted 10/13/16 Mycobacterial Culture, Resulted Pending 10/13/16 Fungal Smear, Resulted Pending 10/13/16 Fungal Culture, Resulted Pending 10/13/16 Gram Stain - Final, Complete 10/13/16 Bacterial Culture - Final, Complete RICKY ZIMMERMAN MD Oct 19, 2016 09:44
[2016-10-19 10:06] LABS: BASO % 0.3 % (0.0-1.0); EOS % 0.4 % (0.0-3.0); LARGE UNSTAINED CELL # 0.1 K/mm3 (0.0-0.4); LARGE UNSTAINED CELL % 2.2 % (0.0-4.0); LYMPH # 0.3 K/mm3 (1.5-4.5); LYMPH % 9.4 % (24.0-44.0); MEAN CORPUSCULAR HEMOGLOBIN 27.2 pg (27.0-33.0); MEAN CORPUSCULAR HGB CONC 32.7 g/dl (32.0-36.5); MEAN CORPUSCULAR VOLUME 83.3 fl (80.0-96.0); MONO # 0.1 K/mm3 (0.0-0.8); NEUTROPHILS # 2.2 K/mm3 (1.8-7.7); NEUTROPHILS % 83.6 % (36.0-66.0); PLATELET COUNT, AUTOMATED 180 k/mm3 (150-450); RED CELL DISTRIBUTION WIDTH 14.5 % (11.5-14.5); WHITE BLOOD COUNT 2.6 K/mm3 (4.0-10.0)
[2016-10-19 10:31] LABS: ALBUMIN 2.5 GM/DL (3.2-5.2); ALBUMIN/GLOBULIN RATIO 0.69 (1.00-1.93); ALKALINE PHOSPHATASE 502 U/L (45-117); ALT/SGPT 116 U/L (12-78); ANION GAP 10 MEQ/L (8-16); AST/SGOT 182 U/L (15-37); BILIRUBIN,TOTAL 0.9 MG/DL (0.2-1.0); BLOOD UREA NITROGEN 18 MG/DL (7-18); CALCIUM LEVEL 7.6 MG/DL (8.8-10.2); CARBON DIOXIDE LEVEL 24 MEQ/L (21-32); CHLORIDE LEVEL 99 MEQ/L (98-107); CREATININE FOR GFR 1.09 MG/DL (0.70-1.30); GLOMERULAR FILTRATION RATE > 60.0 (>42); GLUCOSE, FASTING 141 MG/DL (83-110); POTASSIUM SERUM 4.1 MEQ/L (3.5-5.1); SODIUM LEVEL 133 MEQ/L (136-145); TOTAL PROTEIN 6.1 GM/DL (6.4-8.2)
[2016-10-19] MEDS: AZITHROMYCIN 250 MG TAB PO SCH (11:42)
[2016-10-19] MEDS: CEFDINIR 300 MG CAP (OMNICEF) PO SCH ×2 (11:43→20:48)
[2016-10-19 12:00] VITALS: BP 107/61
[2016-10-19 16:00] VITALS: BP 115/62
[2016-10-19 20:00] VITALS: BP 106/96
[2016-10-19] MEDS: ALPRAZolam 0.25 MG TAB PO PRN (23:44)
[2016-10-20] VITALS: BP 107/62
[2016-10-20 04:00] VITALS: BP 123/76
[2016-10-20 08:00] VITALS: BP 134/80
[2016-10-20] MEDS: AZITHROMYCIN 250 MG TAB PO SCH (08:07)
[2016-10-20] MEDS: FERROUS SULFATE 325MG TAB PO SCH (08:07)
[2016-10-20] MEDS: ACETAMINOPHEN TAB 650MG DOSE (2X325MG) PO PRN ×2 (08:07→17:27)
[2016-10-20] MEDS: CEFDINIR 300 MG CAP (OMNICEF) PO SCH (08:07)
[2016-10-20] MEDS: OCUVITE 1 TAB PO SCH ×2 (08:08→21:04)
[2016-10-20] MEDS: METOPROLOL TART 25 MG TABLET PO SCH ×2 (08:10→21:08)
[2016-10-20] MEDS: VITAMIN D 1,000 INTERNATIONAL UNITS TABLET PO SCH (08:11)
[2016-10-20] MEDS: APIXABAN 5 MG TAB (ELIQUIS) PO SCH (08:11)
[2016-10-20] MEDS: DIGOXIN 0.25 MG TAB PO SCH (08:11)
[2016-10-20 10:17] LABS: MEAN CORPUSCULAR HEMOGLOBIN 27.9 pg (27.0-33.0); MEAN CORPUSCULAR HGB CONC 33.2 g/dl (32.0-36.5); MEAN CORPUSCULAR VOLUME 83.9 fl (80.0-96.0); PLATELET COUNT, AUTOMATED 169 k/mm3 (150-450); RED CELL DISTRIBUTION WIDTH 14.6 % (11.5-14.5); WHITE BLOOD COUNT 2.7 K/mm3 (4.0-10.0)
[2016-10-20 12:00] VITALS: BP 125/67
--- NOTE | 2016-10-20 13:08 | IPNPDOC ---
Subjective Date Seen The patient was seen on 10/20/16. Subjective Chief Complaint/HPI The patient is a 71-year-old male admitted with a reason for visit of Atrial Fib With Rvr. Events since last encounter Had fever spike of 104 last night and again 101 this am. has some loose stools but says thats always lik that, Finished 7 days of zosyn for pneumonia now on po antibiotics. has chills, no abdominal pain , no chest pain or cough. Objective Physical Examination General Exam: Positive: Alert, Cooperative, No Acute Distress Eye Exam: Positive: Conjunctiva & lids normal, EOMI, PERRLA, Negative: Sclera icteric ENT Exam: Positive: Atraumatic, Mucous membr. moist/pink, Pharynx Normal Neck Exam: Positive: Supple, Negative: JVD, thyromegaly Chest Exam: Positive: Clear to auscultation, Normal air movement Heart Exam: Positive: Irregular Rhythm, Normal S1, Normal S2 Telemetry: Positive: Atrial fibrillation Abdomen Exam: Positive: Normal bowel sounds, Soft, Negative: Hepatospenomegaly, Tenderness Extremity Exam: Positive: Normal pulses, Negative: Clubbing, Cyanosis, Edema Skin Exam: Positive: Nl turgor and temperature, Negative: Breakdown, Rash Assessment /Plan Problems (1) Fever Status: Acute Problem Text: will resend blood culture including fungal culture, urine fungal , c diff. ID consult Patient has leucopenia. (2) Postobstructive pneumonia Status: Acute Problem Text: patient finished 87days of zosyn and 5 days of azithromycin Now on po antibiotics. (3) Atrial fibrillation with RVR Status: Acute Problem Text: still in afib rate is being controlled with digoxin and metoprolol. try to increase dose of metoprolol. started on eliquis. (4) Hypertension Status: Chronic Problem Text: now bp soft stopped benicar, get echo. try to increase metoprolol (5) Iron deficiency anemia Status: Chronic (6) Celiac disease Status: Chronic (7) History of prostate cancer Status: Chronic Problem Text: had radical prostatectomy in 2013. (8) Abnormal CT scan of lung Status: Acute Problem Text: with spiculated nodules, mediastinal lymph nodes and patchy consolidations differential includes infection , inflammation or metastatic malignancy had lung biopsy shows chronic interstitial inflammation. Has to follow u;p with Dr Morgan. (9) Leucopenia Status: Acute Response to Treatment: Stable Problem Text: infection or medication related. Plan/VTE VTE Prophylaxis Ordered?: Yes VS, I&O, 24H, Fishbone Vital Signs/I&O Vital Signs Date Time Temp Pulse Resp B/P Pulse Ox O2 Delivery O2 Flow Rate FiO2 10/20/16 12:00 96.6 87 18 125/67 94 Room Air I&O- Last 24 Hours up to 6 AM 10/20/16 06:00 Intake Total 1740 ml Output Total 525 ml Balance 1215 ml Laboratory Data 24H LABS Laboratory Tests 2 10/20/16 07:07: Digoxin Level 1.2 10/20/16 09:46: White Blood Count 2.7L, Red Blood Count 4.51, Hemoglobin 12.6L, Hematocrit 37.8L , Mean Corpuscular Volume 83.9, Mean Corpuscular Hemoglobin 27.9, Mean Corpuscular Hemoglobin Concent 33.2, Red Cell Distribution Width 14.6H, Platelet Count 169, Neutrophils (%) (Auto) , Lymphocytes (%) (Auto) , Monocytes (%) (Auto) , Eosinophils (%) (Auto) , Basophils (%) (Auto) , Neutrophils # (Auto ) , Lymphocytes # (Auto) , Monocytes # (Auto) , Eosinophils # (Auto) , Basophils # (Auto) , Large Unclassified Cells # , Large Unclassified Cells % , Lymphocytes (Manual) 9L, Monocytes (Manual) 1, Neutrophils 90H, Platelet Estimate NORMAL, Red Blood Cell Morphology NORMAL CBC/BMP Laboratory Tests 10/20/16 09:46 Red Blood Count 4.51, Mean Corpuscular Volume 83.9, Mean Corpuscular Hemoglobin 27.9, Mean Corpuscular Hemoglobin Concent 33.2, Red Cell Distribution Width 14.6 H, Neutrophils (%) (Auto) , Lymphocytes (%) (Auto) , Monocytes (%) (Auto) , Eosinophils (%) (Auto) , Basophils (%) (Auto) , Neutrophils # (Auto) , Lymphocytes # (Auto) , Monocytes # (Auto) , Eosinophils # (Auto) , Basophils # ( Auto) Microbiology Microbiology 10/20/16 Blood Culture, Received Pending 10/20/16 Fungal Smear, Received Pending 10/20/16 Blood Fungal Culture, Received Pending 10/11/16 Blood Culture - Final, Complete NO GROWTH AFTER 5 DAYS 10/11/16 Blood Culture - Final, Complete NO GROWTH AFTER 5 DAYS 10/13/16 Acid Fast Stain - Final, Resulted 10/13/16 Mycobacterial Culture, Resulted Pending 10/13/16 Fungal Smear, Resulted Pending 10/13/16 Fungal Culture, Resulted Pending 10/13/16 Gram Stain - Final, Complete 10/13/16 Bacterial Culture - Final, Complete RICKY ZIMMERMAN MD Oct 20, 2016 13:08
[2016-10-20 16:00] VITALS: BP 158/77
[2016-10-20 20:00] VITALS: BP 117/63
[2016-10-20] MEDS: LACTOBACILLUS ACIDOPHILUS CAP (BACID) PO SCH (21:04)
--- NOTE | 2016-10-20 22:33 | CR ---
DATE OF CONSULTATION: 10/20/2016 Infectious disease consultation. Asked to consult by Dr. Solorzano for evaluation of fever in a patient with pulmonary nodules and shortness of breath. HISTORY OF PRESENT ILLNESS: Mr. Sanches is a pleasant 71-year-old gentleman who is very healthy until about a couple weeks prior to admission when he had noticed shortness of breath with exertion that got worse on the day prior to admission. He stated he was having a cough with mild whitish sputum production. He denied any chest pain or pressure, but he was getting more lightheaded. He also had lost about 20 pounds in the past 2 months. The patient had been seen by Dr. Gamez who had ordered a chest x-ray. There was some suspicion of some lung nodule and therefore a CT was ordered. The patient presented to the emergency room on 10/11/2016, for severe shortness of breath and was found to be in atrial fibrillation with rapid ventricular response. CT scan done in the emergency room was done without contrast which showed multiple pulmonary nodules, mediastinal and suspected right hilar adenopathy and too many nodules too numerous to count. Dr. Morgan was consulted. The patient had a needle biopsy which showed only inflammatory changes. This was done by Brain Garcia under CT guidance. The diagnosis was organizing pneumonia. No malignancy was noted on biopsy. There is chronic inflammatory changes, the biopsy was taken from the right lung. The patient stated that he did not know he had a fever at home but he had a couple episodes of night sweats. The patient had low grade fever since admission. Every night he had a temperature anywhere from 100 to 101.5 with night sweats and his fever seemed to have gotten worse, over the past 24 hours he had a temperature up to 103.4 today. He has associated shaking chills. He has no nausea, vomiting or diarrhea. He states since he has been here he has had soft stools but no more than two a day. He does not have associated abdominal pain. His appetite has been diminished. PAST MEDICAL HISTORY: Significant for history of celiac disease, he is compliant with his diet, prostate cancer diagnosed in 2013 status post TURP done by Dr. Christian, during that workup he had a large retroperitoneal lymph node measuring about 4 cm that was biopsied and that was only reactive, history of hypertension, iron deficiency anemia. PAST SURGICAL HISTORY: Prostatectomy done on 10/07/2013, robotic-assisted, plus bilateral pelvic lymph node dissection, endoscopy and colonoscopy were done by Dr. Jaramillo on 04/05/2014, showed nonbleeding hemorrhoids and a polyp, repeat colonoscopy was recommended at 5 years. Pathology showed a tubular adenoma. Previous colonoscopies were done also in 2000 and 2003. 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 ALLERGIES: NIACIN. MEDICATIONS: - ibuprofen 600 mg every 8 hours as needed - Xanax 0.25 mg as needed for anxiety - cefdinir 300 mg by mouth twice a day that was started on 10/19/2016 - Zithromax 500 mg by mouth daily, started on 10/19/2016, prior to that the patient had received IV Rocephin for 2 days on admission from 10/11/2016 until 10/12/2016, after that he received IV Zosyn and IV Zithromax from 10/12/2016 to 10/19/2016, following which he was switched to oral cefdinir and Zithromax. The patient has been on 10 days of different combination antibiotics - metoprolol 37.5 mg by mouth daily - Eliquis 10 mg by mouth twice a day - vitamin D 2000 units by mouth daily - ferrous sulfate 325 mg daily - digoxin 0.25 mg by mouth daily - multivitamin one tablet daily - Tylenol as needed for fever LABORATORY DATA: White count has been low since admission, ranging between 2.3 and 2.9, hemoglobin 12.6, hematocrit 37.8, platelets 169, 90% neutrophils, 9% lymphocytes. Sodium 133, potassium 4.1, chloride 99, bicarbonate 24, BUN 18, creatinine 1.09, glucose 141, calcium 7.6, AST 182, which has increased from 55 on admission, ALT 116, which also has increased since admission from 39, total protein 6.1, albumin 2.5. Urine protein electrophoresis showed no monoclonal (M) spikes. Digoxin level was 1.2. Tissue transglutaminase and anti-gliadin antibodies were done in 2005 and were all positive. IMAGING STUDIES: CT right lower lung biopsy was done on 10/13/2016. Right lower lobe lung mass was localized using CT guidance and six core biopsies were sent to the lab. The patient tolerated procedure well. CT abdomen and pelvis was done with IV and oral contrast shows early bowel obstruction, para-aortic adenopathy of uncertain etiology with enlarged lymph nodes seen in the leesa hepatis and adjacent celiac axis. Neoplastic change cannot be ruled out. Simple left renal cyst. CT chest was done without contrast on 10/11/2016, shows multiple spiculated density throughout both lung butler too numerous to count, consolidated density in the right upper lobe and right lower lobe with air bronchograms. PHYSICAL EXAMINATION: He is a healthy looking elderly gentleman in no acute distress. Temperature 103.4, pulse 105, respirations 20, blood pressure 117/63, oxygen saturation between 94-97% on room air. Heart: Normal S1, S2, irregularly irregular. No murmurs appreciated. Lungs: Crackles at the right base but no wheezes or rhonchi. Good air entry bilaterally. Abdomen: Soft, nontender. No hepatosplenomegaly. Obese. Back: No costovertebral angle (CVA) or lumbosacral tenderness. Extremities: No clubbing, cyanosis or edema. No rashes. Neck: Supple. No jugular venous distention (JVD). No carotid bruits. No adenopathy. Oropharynx is clear with no lesions or thrush. Echocardiogram done on 10/17/2016 shows normal global left ventricular systolic function, enlarged left atrium. IMPRESSION: This is a 71-year-old gentleman who was admitted with a couple weeks history of shortness of breath worsened the day prior to admission due to atrial fibrillation with rapid ventricular response. He had associated anorexia, 20 pounds weight loss, and night sweats. Since admission he has had fevers which have worsened over the past 24 hours in spite of broad-spectrum antibiotics. Initially he was treated with Rocephin, Zosyn and Zithromax, then switched to cefdinir and Zithromax and he was treated for total of 10 days. I am concerned that this is not bacterial pneumonia, that this is more likely a malignancy even though the CT-guided biopsy was negative for malignancy. Postobstructive pneumonia could be in the differential and has been treated with antibiotics but the patient has not improved. 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 Less likely tuberculosis. PLAN: 1. Chest CT with contrast will be repeated tomorrow. Will send serology for Histoplasma and Cryptococcus antigen and antibody and QuantiFERON TB Gold. I have consulted Dr. Dada Ac to review the case and possibly do an open lung biopsy. Will discontinue Eliquis for the time being so he can have a biopsy after Dr. Ac reviews the case. Case has been discussed with Dr. Maren Solorzano, hospitalist on service, who consulted me regarding discontinuing Eliquis and she agrees. 2. He has had increased liver function tests which could be related to medication but will also obtain liver ultrasound to rule out occult infection. Discontinue Zithromax and cefdinir as antibiotics have not seemed to help and patient has finished a 10 day course. Case has been discussed with him and his and they have been in agreement with treatment plan.
[2016-10-20] MEDS: ALPRAZolam 0.25 MG TAB PO PRN (22:54)
[2016-10-21] VITALS (8 sets, daily range): BP systolic 102–132; BP diastolic 64–80
[2016-10-21] MEDS: IBUPROFEN 600 MG TAB PO PRN ×2 (00:28→22:49)
[2016-10-21 07:01] LABS: BASO % 0.4 % (0.0-1.0); EOS % 0.3 % (0.0-3.0); LARGE UNSTAINED CELL # 0.1 K/mm3 (0.0-0.4); LARGE UNSTAINED CELL % 5.7 % (0.0-4.0); LYMPH # 0.2 K/mm3 (1.5-4.5); LYMPH % 11.5 % (24.0-44.0); MEAN CORPUSCULAR HEMOGLOBIN 28.2 pg (27.0-33.0); MEAN CORPUSCULAR HGB CONC 33.6 g/dl (32.0-36.5); MEAN CORPUSCULAR VOLUME 83.9 fl (80.0-96.0); MONO # 0.1 K/mm3 (0.0-0.8); MONO % 3.3 % (0.0-5.0); NEUTROPHILS # 1.6 K/mm3 (1.8-7.7); NEUTROPHILS % 78.8 % (36.0-66.0); PLATELET COUNT, AUTOMATED 149 k/mm3 (150-450); RED CELL DISTRIBUTION WIDTH 14.6 % (11.5-14.5); WHITE BLOOD COUNT 2.1 K/mm3 (4.0-10.0)
[2016-10-21 07:17] LABS: ANION GAP 10 MEQ/L (8-16); BLOOD UREA NITROGEN 28 MG/DL (7-18); CALCIUM LEVEL 8.3 MG/DL (8.8-10.2); CARBON DIOXIDE LEVEL 23 MEQ/L (21-32); CHLORIDE LEVEL 98 MEQ/L (98-107); CREATININE FOR GFR 1.14 MG/DL (0.70-1.30); GLOMERULAR FILTRATION RATE > 60.0 (>42); GLUCOSE, FASTING 110 MG/DL (83-110); POTASSIUM SERUM 4.2 MEQ/L (3.5-5.1); SODIUM LEVEL 131 MEQ/L (136-145)
[2016-10-21] MEDS ORDERED: ISOVUE-370 76% 100ML VIAL (Q9967) As Ordered ONE (07:57)
--- NOTE | 2016-10-21 09:49 | REP ---
RIGHT UPPER QUADRANT ULTRASOUND: Real-time sonographic evaluation of the right upper quadrant performed. The gallbladder demonstrates no evidence of calculi. There is gallbladder wall thickening diffusely up to 7 mm. There is no free fluid. There is no intrahepatic biliary dilatation. Common bile duct is upper limits of normal in diameter at 7 mm. Liver demonstrates no mass. Pancreas could not be seen due to overlying bowel gas. Right kidney demonstrates no hydronephrosis or nephrolithiasis with normal size at 12.7 cm in length. IMPRESSION: Diffuse gallbladder wall thickening. No gallstones are seen and there is no free fluid. Common bile duct upper limits of normal in diameter 7 mm. Signed by Joe Gutierrez MD 10/21/2016 05:24 P
--- NOTE | 2016-10-21 10:04 | REP ---
REASON: Followup pulmonary nodules. Al priors were reviewed, the latest of which is dated 10/11/2016. The mediastinum and pulmonary marielos are not significantly changed. No pleural or pericardial effusions have developed. There is no change in the appearance of the imaged upper abdomen or imaged osseous structures. Evaluation of the lung butler again show scattered asymmetric densities. The asymmetric densities in the right lung base are unchanged as is the consolidated opacity in the posterior segment of the right upper lobe with air bronchograms within it, however, an additional conglomerate right upper lobe density is noted which has increased in size from the prior exam. In the left lung lower lobe, there appears to be some improvement in some of the asymmetric densities and some of the asymmetric densities in the left upper lobe also appear improved while others are completely stable. IMPRESSION: 1. Mixed pattern of increasing and decreasing abnormal opacities as described above. 2. Other findings as described above. Signed by Prasanna Steiner DO 10/21/2016 03:02 P
[2016-10-21 10:11] LABS: ERYTHROCYTE SEDIMENTATION RATE 38 mm/hr (0-20)
[2016-10-21] MEDS ORDERED: ceFAZolin SOD 1 GM in D5W MINI-BAG PLUS 50 ML IV ONE (10:15)
[2016-10-21 10:35] LABS: ABG BASE EXCESS -1.7 (-2.0-2.0); ABG HCO3 21.1 MEQ/L (22.0-26.0); ABG PARTIAL PRESSURE CO2 30.4 mmHg (35.0-45.0); ABG PARTIAL PRESSURE O2 76.6 mmHg (75.0-100.0); ABG pH (ARTERIAL) 7.459 UNITS (7.350-7.450)
[2016-10-21] MEDS: LACTOBACILLUS ACIDOPHILUS CAP (BACID) PO SCH ×2 (10:37→22:02)
[2016-10-21] MEDS: DIGOXIN 0.25 MG TAB PO SCH (10:37)
[2016-10-21] MEDS: FERROUS SULFATE 325MG TAB PO SCH (10:37)
[2016-10-21] MEDS: VITAMIN D 1,000 INTERNATIONAL UNITS TABLET PO SCH (10:38)
[2016-10-21] MEDS: OCUVITE 1 TAB PO SCH ×2 (10:38→22:02)
--- NOTE | 2016-10-21 12:05 | REP ---
CHEST, TWO VIEWS: HISTORY: Bilateral infiltrates. COMPARISON: 10/13/2016 Bilateral infiltrates are present in the right upper and lower lobes and left lower lobe. The infiltrate on the right is increased compared to the previous study. There is blunting of the left costophrenic angle due to pleural thickening or a small pleural effusion. The heart is normal in size. The pulmonary vasculature is normal in appearance. The bony structure is intact. IMPRESSION: Bilateral lower lobe and right upper lobe infiltrates increased on the right compared to the previous study. Signed by Jeison Alex MD 10/21/2016 12:21 P
[2016-10-21] MEDS: METOPROLOL TART 25 MG TABLET PO SCH ×2 (12:19→22:02)
--- NOTE | 2016-10-21 15:40 | IPN ---
DATE: 10/21/2016 Time patient was seen was this afternoon at around 1400. The patient has been seen and examined at bedside. Patient did have a temperature elevation again last night at around midnight. Temperature was 102.4. However, patient was afebrile at the time of interview. He denies any chest pain or trouble breathing. Denies any abdominal pain, nausea, vomiting, diarrhea, or constipation. Patient stated that Dr. Ac saw him around noontime and he was told that he will likely have an open lung biopsy tomorrow. He has been kept nothing by mouth overnight. PHYSICAL EXAMINATION: VITAL SIGNS: Temperature 97.4, pulse 105, respiratory rate 20, blood pressure 114/64, oxygen saturation 97% on room air. GENERAL: Patient is a pleasant, elderly male who is awake, alert and oriented time three, does not appear to be in distress, resting comfortably in bed with head elevated at 30 degrees. HEENT: Normocephalic, atraumatic. Extraocular motor intact. Mucosa moist. NECK: Supple. No neck lymphadenopathy. CARDIOVASCULAR: Irregularly irregular, S1, S2. No murmur, rubs, or gallops. LUNGS: There are slight rales on the right side, otherwise no rhonchi or wheezing. ABDOMEN: Positive bowel sounds, soft, nontender, nondistended. No peritoneal signs. No ecchymosis. EXTREMITIES: No clubbing, cyanosis, or edema. SKIN: Warm and dry. NEUROLOGIC: Cranial nerves II-XII intact. No focal neurological deficit. LABORATORY DATA: WBC 2.1, hemoglobin 12.5, hematocrit 37.3 with a platelet count of 149 and MCV of 83.9. ESR was 38. Sodium 131, potassium 4.2, chloride 98, bicarbonate 23, BUN 28, creatinine 1.14, GFR greater than 60, fasting glucose 110, calcium 8.3, CRP was 7.65. The patient's Cryptococcus antibody antigen, Histoplasma antibody, urine Histoplasma antigen and TB QuantiFERON Gold are all pending. The patient's blood culture times one from today shows no growth. The patient's urine culture from yesterday with a fungal smear and fungal culture is currently pending. The patient's blood culture from two days ago shows no growth after two days. In addition, blood culture for fungal shows no growth after two days as well. The patient had a PA and lateral chest x-ray this morning which shows bilateral lower lobe and right upper lobe infiltrate increased on the right compared to previous study on 10/13/2016. The patient had a CT chest this morning with contrast. However, IV was infiltrated. Report shows mixed pattern of increasing and decreasing abnormal opacity. The patient also had a liver ultrasound this morning which shows diffuse gallbladder wall thickening. No gallstones are seen and there is no free fluid. Common bile duct was in the upper limits of normal at 7 mm. ASSESSMENT AND PLAN: A 71-year-old male who presented with atrial fibrillation with rapid ventricular response (RVR) and bilateral patchy infiltrates in the lung. The patient did spike a fever despite broad-spectrum antibiotics, initially treated with Rocephin, Zosyn and Zithromax, then switched to cefdinir and Zithromax for a total of 10 days. Antibiotics have been discontinued yesterday. Dr. Ac from thoracic surgery was consulted for possible open lung biopsy which has been scheduled for tomorrow. The patient will be kept nothing by mouth. In addition, we will followup with cultures and result, including Histoplasma, Cryptococcus and fungal as well as QuantiFERON Gold to rule out for tuberculosis (TB). The patient has been discussed with attending doctor, Dr. Watts. My preceptor for this patient encounter was Dr. Jani Watts. The preceptor was physically present in the building during the encounter and was fully available as needed. All aspects of the patient interview, examination, medical decision making process, and medical care plan development were reviewed and approved by the preceptor. The preceptor is aware and concurs with the plan as stated in the body of this note and will attest to such by his/her co-signature.
--- NOTE | 2016-10-21 15:41 | IPNPDOC ---
Subjective Date Seen The patient was seen on 10/21/16. Subjective Chief Complaint/HPI The patient is a 71-year-old male admitted with a reason for visit of Atrial Fib With Rvr. Events since last encounter pt seen and examined, doing well, denies any shortness of breath or cough, no chest pain, last night had a fever of 102.4 temporal. he appears clammy now Objective Physical Examination General Exam: Positive: Alert, Cooperative, No Acute Distress Eye Exam: Positive: Conjunctiva & lids normal, EOMI, PERRLA, Negative: Sclera icteric ENT Exam: Positive: Atraumatic, Mucous membr. moist/pink, Pharynx Normal Neck Exam: Positive: Supple, Negative: JVD, thyromegaly Chest Exam: Positive: Clear to auscultation, Normal air movement Heart Exam: Positive: Irregular Rhythm, Normal S1, Normal S2 Telemetry: Positive: Atrial fibrillation Abdomen Exam: Positive: Normal bowel sounds, Soft, Negative: Hepatospenomegaly, Tenderness Extremity Exam: Positive: Normal pulses, Negative: Clubbing, Cyanosis, Edema Skin Exam: Positive: Nl turgor and temperature, Negative: Breakdown, Rash Assessment /Plan Problems (1) Fever Status: Acute Problem Text: continues to have fever Dr souza saw pt sent out serology testing for histoplasmosis discontinued antibiotics for now Dr Ac will do lung biopsy in am Patient has leukopenia slightly worse (2) Postobstructive pneumonia Status: Acute Problem Text: patient finished 7days of zosyn and 5 days of azithromycin (3) Atrial fibrillation with RVR Status: Acute Problem Text: still in afib rate is being controlled with digoxin and metoprolol. try to increase dose of metoprolol. started on eliquis. (4) Hypertension Status: Chronic Problem Text: now bp soft stopped benicar, get echo. try to increase metoprolol (5) Iron deficiency anemia Status: Chronic (6) Celiac disease Status: Chronic (7) History of prostate cancer Status: Chronic Problem Text: had radical prostatectomy in 2013. (8) Abnormal CT scan of lung Status: Acute Problem Text: with spiculated nodules, mediastinal lymph nodes and patchy consolidations differential includes infection , inflammation or metastatic malignancy had lung biopsy shows chronic interstitial inflammation. will rebiopsy in am (9) Leucopenia Status: Acute Response to Treatment: Stable Problem Text: infection or medication related. Plan/VTE VTE Prophylaxis Ordered?: Yes VS, I&O, 24H, Fishbone Vital Signs/I&O Vital Signs Date Time Temp Pulse Resp B/P Pulse Ox O2 Delivery O2 Flow Rate FiO2 10/21/16 13:23 97.4 105 20 114/64 97 Room Air I&O- Last 24 Hours up to 6 AM 10/21/16 06:00 Intake Total 840 ml Output Total 1050 ml Balance -210 ml Laboratory Data 24H LABS Laboratory Tests 2 10/20/16 16:53: 10/20/16 17:15: 10/21/16 06:35: Anion Gap 10, White Blood Count 2.1L, Red Blood Count 4.45, Hemoglobin 12.5L, Hematocrit 37.3L, Mean Corpuscular Volume 83.9, Mean Corpuscular Hemoglobin 28.2 , Mean Corpuscular Hemoglobin Concent 33.6, Red Cell Distribution Width 14.6H, Platelet Count 149L, Neutrophils (%) (Auto) 78.8H, Lymphocytes (%) (Auto) 11.5L , Monocytes (%) (Auto) 3.3, Eosinophils (%) (Auto) 0.3, Basophils (%) (Auto) 0.4 , Neutrophils # (Auto) 1.6L, Lymphocytes # (Auto) 0.2L, Monocytes # (Auto) 0.1, Eosinophils # (Auto) 0.0, Basophils # (Auto) 0.0, C-Reactive Protein, Quantitative 7.65H, Blood Urea Nitrogen 28#H, Creatinine 1.14, Sodium Level 131L , Potassium Level 4.2, Chloride Level 98, Carbon Dioxide Level 23, Calcium Level 8.3L, Erythrocyte Sedimentation Rate 38H, Glomerular Filtration Rate > 60.0, Large Unclassified Cells # 0.1, Large Unclassified Cells % 5.7H 10/21/16 10:25: Arterial Blood pH 7.459H, Arterial Blood Partial Pressure CO2 30.4L, Arterial Blood Partial Pressure O2 76.6, Arterial Blood Total CO2 22.0L, Arterial Blood HCO3 21.1L, Arterial Blood Base Excess -1.7, Arterial Blood Oxygen Saturation 95.8, Blood Gas Bicarbonate Standard 23.0 CBC/BMP Laboratory Tests 10/21/16 06:35 Calcium Level 8.3 L, Red Blood Count 4.45, Mean Corpuscular Volume 83.9, Mean Corpuscular Hemoglobin 28.2, Mean Corpuscular Hemoglobin Concent 33.6, Red Cell Distribution Width 14.6 H, Neutrophils (%) (Auto) 78.8 H, Lymphocytes (%) (Auto ) 11.5 L, Monocytes (%) (Auto) 3.3, Eosinophils (%) (Auto) 0.3, Basophils (%) ( Auto) 0.4, Neutrophils # (Auto) 1.6 L, Lymphocytes # (Auto) 0.2 L, Monocytes # ( Auto) 0.1, Eosinophils # (Auto) 0.0, Basophils # (Auto) 0.0 Microbiology Microbiology 10/21/16 Blood Culture, Received Pending 10/20/16 Blood Culture - Preliminary, Resulted No growth after 24 hours . All specim... 10/20/16 Fungal Smear, Received Pending 10/20/16 Blood Fungal Culture, Received Pending 10/11/16 Blood Culture - Final, Complete NO GROWTH AFTER 5 DAYS 10/11/16 Blood Culture - Final, Complete NO GROWTH AFTER 5 DAYS 10/20/16 Fungal Smear, Received Pending 10/20/16 Fungal Culture, Received Pending 10/13/16 Acid Fast Stain - Final, Resulted 10/13/16 Mycobacterial Culture, Resulted Pending 10/13/16 Fungal Smear, Resulted Pending 10/13/16 Fungal Culture, Resulted Pending 10/13/16 Gram Stain - Final, Complete 10/13/16 Bacterial Culture - Final, Complete HILLARY BURLESON DO Oct 21, 2016 15:40
--- NOTE | 2016-10-21 16:48 | CR ---
DATE OF CONSULTATION: 10/21/2016 REQUESTING PHYSICIAN: The patient is seen at the request of Dr. Watts of infectious disease. HISTORY OF PRESENT ILLNESS: Mr. Sanches is a 71-year-old white male whose story starts approximately one year ago last spring when he noticed increasing shortness of breath with moderate activity, which consisted of raking leaves and using his arms. Over the course of the summer, the shortness of breath gradually diminished. During this time, he does not remember coughing or brining up sputum nor did he have fever, chills or sweats and there was no chest pain. This past winter while he was shoveling snow he noticed again increasing shortness of breath. He was okay with his snowblower, but as soon as he started to shovel he became short of breath with more vigorous activity. He finally became enough concerned where he sought medical attention. He was seen initially at an Urgent Care, which took the chest x-ray which was related to him as being clear. He had more symptomatology and started noticing a weight loss of about 20 pounds. He has not been trying to loose weight and he thinks his weight loss has occurred over the past year, although Dr. Watts has noted it actually occurred over the past two months. Finally being seen by Dr. Gamez, approximately two to three weeks ago. A chest x-ray was undertaken because there was shortness of breath, which showed multiple infiltrates and opacities. He still did not complain of a cough, sputum production, or chest pain, or at time fever or chills. About two weeks ago just prior to admission the shortness of breath go so bad, that only taking a few steps made his short of breath. He was admitted to the hospital where another CT scan showed multiple infiltrates throughout both lungs, more on the right than the left. Only recently has he started to develop a fever which is ranging between 100 and 103.4. With that he does get chilly, but does not have rigor. He does not complain of chest pain and he has just started to cough some white opaque material up. There is no hemoptysis. Most significantly he had a job at the [employer], having retired about two years ago. 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 He underwent a CT guided biopsy on October 14, which showed organizing pneumonia without malignancy. Interstitial chronic inflammatory changes were seen. He has never cultured out any organism either from his blood or from the needle biopsy. PAST MEDICAL HISTORY: Atrial fibrillation. Hypertension. Prostate carcinoma. Celiac sprue. It should be noted the atrial fibrillation occurred last week and he was then put on Eliquis after controlling the rate. PAST SURGICAL HISTORY: Robotic assisted prostatectomy. Hip surgery. The prostatectomy was done in 2013. His prostate-specific antigen (PSA) has been "0" since his prostatectomy. ALLERGIES: NIACIN. MEDICATIONS AT HOME: - Tylenol 600 mg as needed pain - aspirin 81 mg every day - vitamin D 2000 units every day - iron - ferrous sulfate 325 mg every day - Benicar 20 mg every day - PreserVision Reds 1 tablet twice a day In the hospital he has been on azithromycin and ceftriaxone, which has since been discontinued. Subsequent to that he was placed on Zosyn which was discontinued two days ago. HABITS: Smoked for two years while he was in the [place] approximately 3/4 pack a day. He drinks alcohol occasionally. 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 He was never out of the country in the [place]. TRAVEL HISTORY: He has been to [place] and to [facility], [place] where his son lives. There is no foreign travel. EXPOSURES: The above zoo and turkey warehouse exposure. There are on present dogs, cats or birds at home. FAMILY HISTORY: Father of cardiac disease. REVIEW OF SYSTEMS: Constitutional: The above 20 pounds weight loss over at least one year or perhaps only two months. Has had fever and some chills in the last week. He also has night sweats. Eyes: Wears glasses, without diplopia, without amaurosis fugax or prior jaundice. Nose: Without epistaxis. Mouth: Has his own teeth. Pulmonary: See HPI. Cardiac: See HPI. Without orthopnea, without intermittent claudication or leg edema. No history of myocardial infarctions. He does have the new onset atrial fibrillation. Gastrointestinal (GI): Without diarrhea or constipation at this point in time, although his sprue did present with diarrhea 15 years ago. Without nausea, vomiting, hematemesis or melena or hematochezia. Genitourinary (): The above prostatectomy for prostate cancer. Without dysuria or hematuria. Neurologic: Without paresthesias, paralysis or prior seizures. Endocrine: Without diabetes. Without thyroid disease. Psychiatric: Without pathological anxiety, depression or psychoses. Lymphatics: Without lumps, bumps in the neck, axilla or groin. PHYSICAL EXAMINATION: General: A well-developed, well-nourished white male who to touch has cold cool clammy skin. He is in no acute distress, lying comfortably in bed, able to speak in full sentences. Vital signs: Temperature now is 95.6, but was 102.4 last night. Heart rate ranges between 87 and 111 with an irregular rate and rhythm. Respiratory rate of 20 to 22 without the use of accessory muscles, who is 95 to 94% saturated on room air and whose blood pressure is ranging between 108/68 to 114/64. Eyes: Pupils equal, round and reactive to light. Extraocular muscles intact. Sclera anicteric. Nose: Without deformity. Mouth: Shows his mucous membranes to be pink and moist. Lips and commissures are without lesions. There is no thrush. Teeth are in fairly good repair. Neck is supple. There is no jugular venous distention, no subcutaneous emphysema. Trachea is midline. There are no carotid bruits. No thyromegaly or lymphadenopathy. He as 2+ carotid upstrokes. Cardiac examination: Shows regular rate and rhythm without murmurs, clicks, gallops or rubs. I cannot feel his point of maximal impulse (PMI), S1 and S2 are normal. Lungs: Show crackles during inspiration particularly on the right side. These are located in the right base and right mid lung field. Left lung sounds more clear. Abdomen: Soft and nontender. Bowel sounds are positive. There is no hepatomegaly. There is no costovertebral angle (CVA) tenderness. Extremities: Show no pretibial edema, no calf tenderness. No differential swelling of the upper extremities. Skin: Cool, clammy, and wet. There is no cyanosis or mottling including that of the nail beds and the knees. Neuro: Shows II through XII intact. Gross motor and gross sensation intact. Gait is not tested. Psychiatric: Shows him to be awake, alert and oriented times three, with appropriate mood, affect, and conversational. His white count throughout his admission has always been below 3. It is now 2.1 today. Hemoglobin and hematocrit are 12.5 and 37.3 with a platelet count of 149. Differential shows 78% neutrophils, 11% lymphocytes, 3% monocytes. There are no immature forms or toxic granulations. His erythrocyte sedimentation rate is high at 38. PT PTT are not done. Electrolytes show a sodium of 131 with the remainder of the electrolytes normal with a BUN and creatinine of 28 and 1.14, a glucose of 110 and a calcium of 8.3. C-reactive protein is 7.65. AST and ALT have both been elevated throughout hospital stay but more yesterday than prior determinations with an AST and an ALT of 182 and 116 respectively. Albumin is 2.5. No monoclonal (M) spike is seen in the protein serum electrophoresis. His digoxin level is 1.[address] done this morning with contrast shows bilateral infiltrates, right greater than left. I do not see much contrast in the vasculature and upon physical examination it is clear that the intravascular dye infiltrated the right arm vein. The infiltrates along with surrounding ground glass appearance appears densely in the upper lobe and less densely but in definitive distributions, all measuring about 3.5 cm. Some of these masses look spiculated. There is no pericardial effusion. There are no emphysematous changes. Adrenals have a normal configuration. I do not see any liver lesions. There is no mediastinal lymphadenopathy. IMPRESSION: 1. Indolent probable inflammatory pneumonitis, unknown cause. 2. Possible fungal cause of various infiltrates from the strong animal exposure and bird dropping exposure. 3. Hypertension. 4. Atrial fibrillation. 5. Celiac sprue. 6. History of prostate cancer, status post resection. PLAN AND DISCUSSION: 1. My gut feeling tells me that this a fungal process either histoplasmosis or Cryptococcus from the bird exposure. He does have a positive travel history to [place], but I doubt this is cocciioidomycosis. I am concerned that his white count is so low. There is no indication that he is immunosuppressed. Dr. Watts of infectious disease has seen him in consultation and has not ordered an HIV test. At the end of the day we need to make a diagnosis as he his getting worse with continued fever. I will, therefore, undertake a wedge resection of one of his right sided lesions tomorrow under VATS. I have explained the procedure and the rationale to the patient and he is willing to proceed. He also understands the risks of the mortality, bleeding and infection. There is also an outside possibility that this could be diffuse metastatic carcinoma although I doubt it would come from the prostate, as the prostate usually goes to the bone. Tomorrow we will take him for a wedge resection of one of the right sided lesions.
[2016-10-21] MEDS: ALPRAZolam 0.25 MG TAB PO PRN (22:49)
[2016-10-22] VITALS (13 sets, daily range): BP systolic 90–122; BP diastolic 47–70
[2016-10-22 05:55] LABS: BASO % 0.6 % (0.0-1.0); EOS % 0.3 % (0.0-3.0); LARGE UNSTAINED CELL # 0.1 K/mm3 (0.0-0.4); LARGE UNSTAINED CELL % 3.9 % (0.0-4.0); LYMPH # 0.4 K/mm3 (1.5-4.5); LYMPH % 14.2 % (24.0-44.0); MEAN CORPUSCULAR HEMOGLOBIN 27.4 pg (27.0-33.0); MEAN CORPUSCULAR HGB CONC 32.5 g/dl (32.0-36.5); MEAN CORPUSCULAR VOLUME 84.4 fl (80.0-96.0); MONO # 0.1 K/mm3 (0.0-0.8); MONO % 4.1 % (0.0-5.0); NEUTROPHILS # 1.7 K/mm3 (1.8-7.7); NEUTROPHILS % 76.9 % (36.0-66.0); PLATELET COUNT, AUTOMATED 150 k/mm3 (150-450); RED CELL DISTRIBUTION WIDTH 14.8 % (11.5-14.5); WHITE BLOOD COUNT 2.2 K/mm3 (4.0-10.0)
[2016-10-22 06:11] LABS: CREATININE FOR GFR 1.31 MG/DL (0.70-1.30); GLOMERULAR FILTRATION RATE 57.1 (>42); POTASSIUM SERUM 4.3 MEQ/L (3.5-5.1)
[2016-10-22] MEDS ORDERED: ceFAZolin SOD 1 GM in D5W MINI-BAG PLUS 50 ML IV ONE (07:00)
[2016-10-22] MEDS: METOPROLOL TART 25 MG TABLET PO SCH ×2 (08:55→21:55)
[2016-10-22] MEDS: PANTOPRAZOLE 40MG INJ (PROTONIX) (C9113) IV SCH (09:00)
[2016-10-22] MEDS ORDERED: APIXABAN 5 MG TAB (ELIQUIS) PO SCH (09:00)
[2016-10-22] MEDS: MOM 30ML SUSPENSION UDC PO SCH (09:00)
[2016-10-22] MEDS: LACTOBACILLUS ACIDOPHILUS CAP (BACID) PO SCH ×2 (09:09→21:55)
[2016-10-22] MEDS: DIGOXIN 0.25 MG TAB PO SCH (09:09)
[2016-10-22] MEDS: VITAMIN D 1,000 INTERNATIONAL UNITS TABLET PO SCH (09:09)
[2016-10-22] MEDS: OCUVITE 1 TAB PO SCH ×2 (09:09→21:54)
[2016-10-22] MEDS: FERROUS SULFATE 325MG TAB PO SCH (09:09)
[2016-10-22] MEDS ORDERED: SLF 3 ML SYR IV PRN (10:15)
[2016-10-22 10:39] LABS: INR 1.18
[2016-10-22] MEDS ORDERED: BUPIVACAINE HCL 0.25% 10 ML VIAL As Ordered ONE (10:51)
[2016-10-22] MEDS ORDERED: BUPIVACAINE LIPOSOME/PF 1.3% 20 ML VIAL (13.3MG/ML)(EXPAREL) As Ordered ONE ×2 (10:51→16:38)
[2016-10-22] MEDS ORDERED: ceFAZolin 1GM INJ (J0690) As Ordered ONE (13:16)
[2016-10-22] MEDS ORDERED: MUPIROCIN 2% OINT 22 GM TUBE As Ordered ONE (13:16)
[2016-10-22] MEDS: SLF 3 ML SYR IV SCH ×2 (14:00→21:56)
[2016-10-22 14:09] LABS: ABG BASE EXCESS -2.7 (-2.0-2.0); ABG HCO3 22.5 MEQ/L (22.0-26.0); ABG PARTIAL PRESSURE CO2 40.9 mmHg (35.0-45.0); ABG PARTIAL PRESSURE O2 437.8 mmHg (75.0-100.0); ABG STANDARD HCO3 22.2 MEQ/L (22.0-26.0); ABG TOTAL CO2 23.8 MEQ/L (23.0-31.0); ABG pH (ARTERIAL) 7.359 UNITS (7.350-7.450)
[2016-10-22] MEDS ORDERED: fentaNYL 250 MCG/5 ML INJECTION (J3010) As Ordered ONE (14:35)
[2016-10-22] MEDS ORDERED: MIDAZOLAM INJ 2 MG/2 ML VIAL (J2250) As Ordered ONE (14:35)
[2016-10-22] MEDS ORDERED: PHENYLephrine HCL 500 MCG/5 ML (100MCG/ML) SYRINGE (J2370) As Ordered ONE ×2 (14:35→16:36)
[2016-10-22] MEDS ORDERED: LIDOCAINE 2% INJ 100 MG/5 ML SDV (FOR ANES.) As Ordered ONE (14:35)
[2016-10-22] MEDS ORDERED: PROPOFOL 200 MG/20 ML VIAL As Ordered ONE (14:35)
[2016-10-22] MEDS ORDERED: NEOSTIGMINE 1MG/ML 5 ML SYRINGE (J2710) As Ordered ONE (14:36)
[2016-10-22] MEDS ORDERED: ROCURONIUM BROMIDE 50 MG/5 ML VIAL As Ordered ONE (14:36)
[2016-10-22] MEDS ORDERED: ONDANSETRON 4MG/2ML VIAL (J2405) As Ordered ONE (14:36)
[2016-10-22] MEDS ORDERED: ETOMIDATE INJ 20MG/10ML VIAL As Ordered ONE (14:36)
[2016-10-22] MEDS ORDERED: GLYCOPYRROLATE INJ 0.2 MG/ML 2 ML VIAL As Ordered ONE (14:36)
[2016-10-22] MEDS ORDERED: fentaNYL 100 MCG/2 ML INJECTION (J3010) As Ordered ONE ×2 (14:38→16:30)
[2016-10-22] MEDS ORDERED: SEVOFLURANE INHAL SOLN 250 ML BTL As Ordered ONE (14:46)
[2016-10-22] MEDS ORDERED: ESMOLOL INJ 100MG/10ML VIAL As Ordered ONE (14:47)
[2016-10-22 16:09] LABS: ABG BASE EXCESS -5.4 (-2.0-2.0); ABG DEVICE MECHAN. VENT; ABG HCO3 29.8 MEQ/L (22.0-26.0); ABG PARTIAL PRESSURE O2 111.6 mmHg (75.0-100.0); ABG TOTAL CO2 33.7 MEQ/L (23.0-31.0)
[2016-10-22 16:10] LABS: ABG PARTIAL PRESSURE CO2 129.3 mmHg (35.0-45.0)
[2016-10-22 16:44] LABS: ABG BASE EXCESS -7.3 (-2.0-2.0); ABG DEVICE MECHAN. VENT; ABG HCO3 26.4 MEQ/L (22.0-26.0); ABG PARTIAL PRESSURE O2 177.2 mmHg (75.0-100.0); ABG STANDARD HCO3 18.7 MEQ/L (22.0-26.0); ABG TOTAL CO2 29.7 MEQ/L (23.0-31.0)
[2016-10-22 16:46] LABS: ABG PARTIAL PRESSURE CO2 106.4 mmHg (35.0-45.0); ABG pH (ARTERIAL) 7.013 UNITS (7.350-7.450)
[2016-10-22 17:10] LABS: ABG BASE EXCESS -6.1 (-2.0-2.0); ABG DEVICE MECHAN. VENT; ABG HCO3 20.8 MEQ/L (22.0-26.0); ABG PARTIAL PRESSURE CO2 46.4 mmHg (35.0-45.0); ABG PARTIAL PRESSURE O2 397.2 mmHg (75.0-100.0); ABG STANDARD HCO3 19.6 MEQ/L (22.0-26.0); ABG TOTAL CO2 22.3 MEQ/L (23.0-31.0)
[2016-10-22] MEDS ORDERED: METOPROLOL 5 MG/5 ML VIAL IV STA (17:43)
[2016-10-22] MEDS ORDERED: BISACODYL 10 MG SUPP PR PRN (17:45)
[2016-10-22] MEDS ORDERED: PERCOCET 5MG/325MG TAB PO PRN (17:45)
[2016-10-22] MEDS ORDERED: LEVALBUTEROL 1.25 MG/0.5 ML CONCENTRATE NEB NEB PRN (17:45)
[2016-10-22] MEDS ORDERED: MORPHINE 10 MG/ML 1ML VIAL As Ordered ONE (17:45)
[2016-10-22] MEDS ORDERED: MEPERIDINE INJ 25 MG/ML VIAL (J2175) As Ordered ONE (17:45)
[2016-10-22] MEDS ORDERED: ONDANSETRON 4MG/2ML VIAL (J2405) IV PRN ×2 (17:45→18:00)
[2016-10-22] MEDS: MEPERIDINE INJ 25 MG/ML VIAL (J2175) IV PRN ×2 (17:50→18:05)
[2016-10-22] MEDS: MORPHINE 2 MG/ML 1ML SYRINGE IV PRN ×2 (17:53→18:16)
[2016-10-22 17:58] LABS: ABG BASE EXCESS -4.6 (-2.0-2.0); ABG HCO3 21.1 MEQ/L (22.0-26.0); ABG PARTIAL PRESSURE CO2 41.7 mmHg (35.0-45.0); ABG PARTIAL PRESSURE O2 84.5 mmHg (75.0-100.0); ABG STANDARD HCO3 20.6 MEQ/L (22.0-26.0); ABG TOTAL CO2 22.4 MEQ/L (23.0-31.0); ABG pH (ARTERIAL) 7.323 UNITS (7.350-7.450)
[2016-10-22] MEDS ORDERED: METOPROLOL 5 MG/5 ML VIAL As Ordered ONE (17:58)
[2016-10-22] MEDS ORDERED: LR 1,000 ML IV SCH (18:00)
[2016-10-22] MEDS ORDERED: KETOROLAC 30 MG/ML VIAL (J1885) IV SCH (18:00)
[2016-10-22] MEDS ORDERED: fentaNYL 100 MCG/2 ML INJECTION (J3010) IV PRN (18:00)
[2016-10-22 18:07] LABS: MEAN CORPUSCULAR HGB CONC 31.9 g/dl (32.0-36.5); MEAN CORPUSCULAR VOLUME 84.7 fl (80.0-96.0); PLATELET COUNT, AUTOMATED 151 k/mm3 (150-450); RED CELL DISTRIBUTION WIDTH 14.8 % (11.5-14.5); WHITE BLOOD COUNT 2.5 K/mm3 (4.0-10.0)
[2016-10-22 18:21] LABS: CALCIUM LEVEL 8.7 MG/DL (8.8-10.2); CREATININE FOR GFR 1.36 MG/DL (0.70-1.30); GLOMERULAR FILTRATION RATE 54.7 (>42); POTASSIUM SERUM 4.8 MEQ/L (3.5-5.1)
[2016-10-22] MEDS ORDERED: KCL 20MEQ IN D5/0.9%NACL 1000 ML As Ordered ONE (18:31)
[2016-10-22 18:37] LABS: BANDS 4 % (< 11)
--- NOTE | 2016-10-22 19:47 | REP ---
Portable chest, single AP view, patient sitting: Comparison is 10/21/2016. There is also a comparison chest CT dated 10/21/2016. There is a right thoracotomy tube as an interval change. There is no right pneumothorax. There is subcutaneous emphysema along the right lateral chest wall as an interval change. There are bilateral infiltrates not significantly changed from recent prior studies. Cardiac size is unchanged. There is magnification from portable positioning. Signed by Joe Macias MD 10/22/2016 07:39 P
[2016-10-22] MEDS: LEVALBUTEROL 1.25 MG/0.5 ML CONCENTRATE NEB NEB SCH (20:00)
--- NOTE | 2016-10-22 21:40 | IPNPDOC ---
Subjective Date Seen The patient was seen on 10/22/16. Subjective Chief Complaint/HPI The patient is a 71-year-old male admitted with a reason for visit of Atrial Fib With Rvr. Constitutional: Denies: Chills, Fever, Night Sweats Objective Physical Examination General Exam: Positive: Alert, Cooperative, No Acute Distress Eye Exam: Positive: PERRLA, Conjunctiva & lids normal, EOMI, Negative: Sclera icteric ENT Exam: Positive: Atraumatic, Mucous membr. moist/pink, Pharynx Normal Neck Exam: Positive: Supple, Negative: JVD, thyromegaly Chest Exam: Positive: Clear to auscultation, Normal air movement Heart Exam: Positive: Irregular Rhythm, Normal S1, Normal S2 Telemetry: Positive: Atrial fibrillation Abdomen Exam: Positive: Normal bowel sounds, Soft, Negative: Tenderness, Hepatospenomegaly Extremity Exam: Positive: Normal pulses, Negative: Clubbing, Cyanosis, Edema Skin Exam: Positive: Nl turgor and temperature, Negative: Rash, Breakdown Assessment /Plan Problems (1) Fever Status: Acute Problem Text: continues to have fever Dr harley candelario pt sent out serology testing for histoplasmosis discontinued antibiotics for now s/p lung biopsy by dr reece today Patient has leukopenia slightly worse (2) Postobstructive pneumonia Status: Acute Problem Text: patient finished 7days of zosyn and 5 days of azithromycin (3) Atrial fibrillation with RVR Status: Acute Problem Text: still in afib rate is being controlled with digoxin and metoprolol. try to increase dose of metoprolol. started on eliquis. (4) Hypertension Status: Chronic Problem Text: now bp soft stopped benicar, get echo. try to increase metoprolol (5) Iron deficiency anemia Status: Chronic (6) Celiac disease Status: Chronic (7) History of prostate cancer Status: Chronic Problem Text: had radical prostatectomy in 2014. (8) Abnormal CT scan of lung Status: Acute Problem Text: with spiculated nodules, mediastinal lymph nodes and patchy consolidations differential includes infection , inflammation or metastatic malignancy had lung biopsy shows chronic interstitial inflammation. will rebiopsy in am (9) Leucopenia Status: Acute Response to Treatment: Stable Problem Text: infection or medication related. Plan/VTE VTE Prophylaxis Ordered?: Yes VS, I&O, 24H, Fishbone Vital Signs/I&O Vital Signs Date Time Temp Pulse Resp B/P (MAP) Pulse Ox O2 Delivery O2 Flow Rate FiO2 10/22/16 20:15 86 102/62 (75) 100 Nasal Cannula 2.0 10/22/16 19:32 20 10/22/16 18:35 97.9 I&O- Last 24 Hours up to 6 AM 10/22/16 06:00 Intake Total 1080 ml Output Total 1100 ml Balance -20 ml Laboratory Data 24H LABS Laboratory Tests 2 10/22/16 05:36: White Blood Count 2.2L, Red Blood Count 4.35, Hemoglobin 11.9L, Hematocrit 36.7L , Mean Corpuscular Volume 84.4, Mean Corpuscular Hemoglobin 27.4, Mean Corpuscular Hemoglobin Concent 32.5, Red Cell Distribution Width 14.8H, Platelet Count 150, Neutrophils (%) (Auto) 76.9H, Lymphocytes (%) (Auto) 14.2L, Monocytes (%) (Auto) 4.1, Eosinophils (%) (Auto) 0.3, Basophils (%) (Auto) 0.6, Neutrophils # (Auto) 1.7L, Lymphocytes # (Auto) 0.4L, Monocytes # (Auto) 0.1, Eosinophils # (Auto) 0.0, Basophils # (Auto) 0.0, Large Unclassified Cells % 3.9 , Large Unclassified Cells # 0.1, Anion Gap 10, Glomerular Filtration Rate 57.1 , Blood Urea Nitrogen 31H, Creatinine 1.31H, Sodium Level 134L, Potassium Level 4.3, Chloride Level 99, Carbon Dioxide Level 25, Calcium Level 9.0 10/22/16 10:17: Prothrombin Time 15.1H, Prothromb Time International Ratio 1.18, Activated Partial Thromboplast Time 28.5 10/22/16 14:00: Blood Gas Bicarbonate Standard 22.2, Arterial Blood pH 7.359, Arterial Blood Partial Pressure CO2 40.9, Arterial Blood Partial Pressure O2 437.8H, Arterial Blood Total CO2 23.8, Arterial Blood HCO3 22.5, Arterial Blood Base Excess -2.7L , Arterial Blood Oxygen Saturation 99.9H 10/22/16 16:00: Blood Gas Bicarbonate Standard 20.0L, Arterial Blood pH 6.980*L, Arterial Blood Partial Pressure CO2 129.3*H, Arterial Blood Partial Pressure O2 111.6H, Arterial Blood Total CO2 33.7H, Arterial Blood HCO3 29.8H, Arterial Blood Base Excess -5.4L, Arterial Blood Oxygen Saturation 95.0, Arterial Blood Gas Liter Flow 100, Oxygen Delivery Device MECHAN. VENT 10/22/16 16:30: Blood Gas Bicarbonate Standard 18.7L, Arterial Blood pH 7.013*L, Arterial Blood Partial Pressure CO2 106.4*H, Arterial Blood Partial Pressure O2 177.2H, Arterial Blood Total CO2 29.7, Arterial Blood HCO3 26.4H, Arterial Blood Base Excess -7.3L, Arterial Blood Oxygen Saturation 98.7, Arterial Blood Gas Liter Flow 100, Oxygen Delivery Device MECHAN. VENT 10/22/16 16:58: Blood Gas Bicarbonate Standard 19.6L, Arterial Blood pH 7.270L, Arterial Blood Partial Pressure CO2 46.4H, Arterial Blood Partial Pressure O2 397.2H, Arterial Blood Total CO2 22.3L, Arterial Blood HCO3 20.8L, Arterial Blood Base Excess - 6.1L, Arterial Blood Oxygen Saturation 99.7H, Arterial Blood Gas Liter Flow 100 , Oxygen Delivery Device MECHAN. VENT 10/22/16 17:45: Blood Gas Bicarbonate Standard 20.6L, Arterial Blood pH 7.323L, Arterial Blood Partial Pressure CO2 41.7, Arterial Blood Partial Pressure O2 84.5, Arterial Blood Total CO2 22.4L, Arterial Blood HCO3 21.1L, Arterial Blood Base Excess - 4.6L, Arterial Blood Oxygen Saturation 95.6, Neutrophils 78H, Band Neutrophils 4 , Lymphocytes (Manual) 14L, Monocytes (Manual) 4, Platelet Estimate DECREASED, Red Blood Cell Morphology NORMAL, Anion Gap 11, Glomerular Filtration Rate 54.7 , Blood Urea Nitrogen 30H, Creatinine 1.36H, Sodium Level 134L, Potassium Level 4.8, Chloride Level 101, Carbon Dioxide Level 22, Calcium Level 8.7L CBC/BMP Laboratory Tests 10/22/16 05:36 Red Blood Count 4.35, Mean Corpuscular Volume 84.4, Mean Corpuscular Hemoglobin 27.4, Mean Corpuscular Hemoglobin Concent 32.5, Red Cell Distribution Width 14.8 H, Neutrophils (%) (Auto) 76.9 H, Lymphocytes (%) (Auto) 14.2 L, Monocytes (%) (Auto) 4.1, Eosinophils (%) (Auto) 0.3, Basophils (%) (Auto) 0.6, Neutrophils # (Auto) 1.7 L, Lymphocytes # (Auto) 0.4 L, Monocytes # (Auto) 0.1, Eosinophils # (Auto) 0.0, Basophils # (Auto) 0.0, Calcium Level 9.0 10/22/16 17:45 Red Blood Count 4.60, Mean Corpuscular Volume 84.7, Mean Corpuscular Hemoglobin 27.0, Mean Corpuscular Hemoglobin Concent 31.9 L, Red Cell Distribution Width 14.8 H, Calcium Level 8.7 L Microbiology Microbiology 10/21/16 Blood Culture - Preliminary, Resulted No growth after 24 hours . All specim... 10/20/16 Blood Culture - Preliminary, Resulted No Growth after 48 hours. All Specime... 10/20/16 Fungal Smear, Received Pending 10/20/16 Blood Fungal Culture, Received Pending 10/22/16 Acid Fast Stain, Received Pending 10/22/16 Mycobacterial Culture, Received Pending 10/20/16 Fungal Smear, Received Pending 10/20/16 Fungal Culture, Received Pending 10/22/16 Bacterial Culture, Received Pending 10/13/16 Acid Fast Stain - Final, Resulted 10/13/16 Mycobacterial Culture, Resulted Pending 10/13/16 Fungal Smear, Resulted Pending 10/13/16 Fungal Culture, Resulted Pending 10/13/16 Gram Stain - Final, Complete 10/13/16 Bacterial Culture - Final, Complete HILLARY BURLESON DO Oct 22, 2016 21:39
[2016-10-22] MEDS: DOCUSATE SODIUM 100 MG CAP PO SCH (21:54)
[2016-10-22] MEDS: KCL 20MEQ IN D5/NS 1000ML 1,000 ML IV SCH (21:56)
[2016-10-22] MEDS: HEPARIN SOD (PORCINE) 5000 UNITS/ML VIAL SC SCH (21:56)
[2016-10-23] VITALS (11 sets, daily range): BP systolic 94–111; BP diastolic 53–68; O2SAT 99
[2016-10-23] MEDS: LEVALBUTEROL 1.25 MG/0.5 ML CONCENTRATE NEB NEB SCH ×4 (01:33→19:22)
[2016-10-23 05:25] LABS: BASO % 0.3 % (0.0-1.0); EOS % 0.1 % (0.0-3.0); LARGE UNSTAINED CELL # 0.1 K/mm3 (0.0-0.4); LARGE UNSTAINED CELL % 2.5 % (0.0-4.0); LYMPH # 0.4 K/mm3 (1.5-4.5); LYMPH % 13.6 % (24.0-44.0); MEAN CORPUSCULAR HEMOGLOBIN 26.5 pg (27.0-33.0); MEAN CORPUSCULAR HGB CONC 31.6 g/dl (32.0-36.5); MONO # 0.1 K/mm3 (0.0-0.8); MONO % 3.8 % (0.0-5.0); NEUTROPHILS # 2.2 K/mm3 (1.8-7.7); NEUTROPHILS % 79.8 % (36.0-66.0); PLATELET COUNT, AUTOMATED 136 k/mm3 (150-450); RED CELL DISTRIBUTION WIDTH 14.9 % (11.5-14.5); WHITE BLOOD COUNT 2.8 K/mm3 (4.0-10.0)
[2016-10-23 05:47] LABS: ANION GAP 9 MEQ/L (8-16); BLOOD UREA NITROGEN 32 MG/DL (7-18); CARBON DIOXIDE LEVEL 24 MEQ/L (21-32); CHLORIDE LEVEL 101 MEQ/L (98-107); CREATININE FOR GFR 1.18 MG/DL (0.70-1.30); GLOMERULAR FILTRATION RATE > 60.0 (>42); GLUCOSE, FASTING 160 MG/DL (83-110); POTASSIUM SERUM 4.9 MEQ/L (3.5-5.1); SODIUM LEVEL 134 MEQ/L (136-145)
[2016-10-23 05:49] LABS: ABG BASE EXCESS -2.9 (-2.0-2.0); ABG HCO3 20.4 MEQ/L (22.0-26.0); ABG PARTIAL PRESSURE CO2 30.7 mmHg (35.0-45.0); ABG PARTIAL PRESSURE O2 105.8 mmHg (75.0-100.0); ABG STANDARD HCO3 22.1 MEQ/L (22.0-26.0); ABG TOTAL CO2 21.3 MEQ/L (23.0-31.0)
[2016-10-23] MEDS: SLF 3 ML SYR IV SCH ×3 (06:00→21:29)
[2016-10-23] MEDS: KCL 20MEQ IN D5/NS 1000ML 1,000 ML IV SCH (08:00)
[2016-10-23] MEDS: MOM 30ML SUSPENSION UDC PO SCH (09:00)
[2016-10-23] MEDS: METOPROLOL TART 25 MG TABLET PO SCH ×2 (09:00→21:28)
[2016-10-23] MEDS ORDERED: PANTOPRAZOLE 40MG TAB (PROTONIX) PO SCH (09:00)
--- NOTE | 2016-10-23 09:03 | REP ---
PA and lateral chest: Comparison is 10/22/2016. There is apparent free air beneath both right and left hemidiaphragms as an interval change. This could merely be discoid atelectasis parallel to the diaphragmatic domes, however, free subdiaphragmatic air cannot be entirely discounted. CT might be considered for confirmation. Results are telephoned to the patient's surgeon, Dr. Ac. The right thoracotomy tube is unchanged. There is no pneumothorax. The subcutaneous emphysema along the right lateral chest wall appears decreased. The bilateral infiltrates are not significantly changed. Cardiac size appears normal, unchanged. I suspect a small left pleural effusion. Signed by Joe Macias MD 10/23/2016 08:56 A
--- NOTE | 2016-10-23 09:04 | RO ---
DATE OF PROCEDURE: 10/22/2016 PREOPERATIVE DIAGNOSIS: Multiple lung lesions of unknown etiology, possibly fungal. POSTOPERATIVE DIAGNOSIS: Multiple lung lesions of unknown etiology, possibly fungal. Frozen section shows diagnostic tissue. Final pathology is pending. PROCEDURES: Video-assisted thoracic surgery (VATS) wedge resection right upper lobe. Extensive lysis of adhesions. Bronchoscopy. Five-level rib block. SURGEON: Dada Ac MD CLOD PULLER: ANESTHESIA: FINDINGS: The bronchoscopy revealed a normal branching tracheobronchial tree. There were no endobronchial lesions and no scant secretions. The VATS procedure revealed extensive dense adhesions over the entire surface of the lung, which all had to be taken down in a very tedious fashion, which prolonged a normally 45-minute case into a 2-1/2-hour case. The lung showed diagnostic tissue and was thickened. I could not really tell what the color of the underlying lung was other than white from the adhesions. DESCRIPTION OF PROCEDURE: After satisfactory general anesthesia and single-lumen endotracheal intubation, the bronchoscope was placed down the tracheobronchial tree with the above results. There were no endobronchial lesions and no scant secretions. There was normal branching configuration. The patient was then turned into the left lateral decubitus position after having a double-lumen endotracheal tube placed. The patient was prepped and draped in the usual sterile fashion, and a thoracoscopic incision was made at the approximate 5th intercostal space in the anterior axillary line. As soon as I put the scope into the chest, all I could see were adhesions. These adhesions were initially swept away quite gingerly with the scope itself until I could find another port site. Another 5 mm port was placed and therein started a long tedious dissection of the numerous dense adhesions throughout the entire lung and chest wall. In order to pin a piece of lung, the lysis of adhesions had to proceed down to the fissures. Two additional ports were placed in order to wedge the lung out. Once identifying a diseased portion of lung in the upper lobe, a surface was prepared and was adhesed with a grasping forceps. More adhesions were taken down so that the lung could be placed into a stapler. Finally, the stapler was placed; and after multiple firings, the wedge resection could be obtained. It was noted that during clamping of the stapler, the lung tore but without bleeding, indicating that I indeed had a diagnostic tissue. It was very thick, and the stapler was offered a lot of resistance by the lung tissue itself. The lung tissue was placed into an Endo Catch bag and delivered to the wound and sent for pathology, frozen section, along with permanent sections, as well as anaerobic, aerobic, fungal, and tuberculosis (TB) cultures. A five-level rib block was then undertaken with Marcaine. The incisions were also instilled with Marcaine directly. After watching the lung come back to the chest wall and after placement of a posterior chest tube #24, the incisions were closed with running 0 Vicryl suture for the support of the extrathoracic muscles, running 3-0 Vicryl suture for the subcutaneous tissue, and running 4-0 Monocryl subcuticular suture for the skin. The patient tolerated the procedure well and left the operating room in satisfactory condition to the recovery room.
[2016-10-23] MEDS: LACTOBACILLUS ACIDOPHILUS CAP (BACID) PO SCH ×2 (10:15→21:29)
[2016-10-23] MEDS: DOCUSATE SODIUM 100 MG CAP PO SCH ×2 (10:15→21:29)
[2016-10-23] MEDS: APIXABAN 5 MG TAB (ELIQUIS) PO SCH ×2 (10:15→21:29)
[2016-10-23] MEDS: OCUVITE 1 TAB PO SCH ×2 (10:15→21:29)
[2016-10-23] MEDS: VITAMIN D 1,000 INTERNATIONAL UNITS TABLET PO SCH (10:15)
[2016-10-23] MEDS: DIGOXIN 0.25 MG TAB PO SCH (10:16)
[2016-10-23] MEDS: FERROUS SULFATE 325MG TAB PO SCH (10:16)
[2016-10-23] MEDS: PANTOPRAZOLE 40MG INJ (PROTONIX) (C9113) IV SCH (10:17)
[2016-10-23] MEDS: HEPARIN SOD (PORCINE) 5000 UNITS/ML VIAL SC SCH ×2 (10:17→21:28)
--- NOTE | 2016-10-23 16:23 | IPN ---
DATE: 10/23/2016 This is the first postoperative day for Mr. Sanches. He has had a stable night of surgery. In the recovery room yesterday, he had atrial fibrillation with a rapid ventricular response, which responded to 5 mg of metoprolol, and his rate has been controlled ever since. His pain is being well controlled. In fact, he does not complain of any pain. He has a small air leak with a forceful cough. His vital signs show a maximum temperature (T max) of 98.8 with a heart rate that ranges between 85 and 73 in atrial fibrillation with a respiratory rate of 18 to 16 without the use of accessory muscles, who is 95 to 97% saturated on 2 liters nasal cannula and whose blood pressure is ranging between 99/68 to 101/59. His intake and output the past 24 hours has been recorded as 2140 in and 1060 out for a positivity of 1080 mL. He has put out a total of 500 mL from the chest tube, 160 mL up until midnight and 375 mL since midnight. It is serosanguineous. There is a small air leak as noted above. On physical examination, his lungs show bibasilar Velcro crackles during inspiration on either side. Percussion note is full to the diaphragm. Cardiac exam is without murmurs, clicks, gallops or rubs. I cannot feel his point of maximum impulse (PMI). S1, S2 are normal. Abdomen is soft and nontender but tympanitic and slightly distended. Bowel sounds are positive. There is no hepatomegaly. Extremities show no pretibial edema, no calf tenderness, no differential swelling of the upper extremities. Skin is warm, dry and perfused without cyanosis or mottling including that of the nail beds and the knees. Neck is supple. There is no jugular venous distention, no subcutaneous emphysema. Trachea is midline. Mouth shows his mucous membranes to be pink and moist. Lips and commissures without lesions. There is no thrush. Eyes show his pupils to be equal and reactive. Extraocular motions intact. Sclerae anicteric. Neurologic shows II-XII intact along with gross motor and gross sensation intact. Gait is not tested. Psychiatric shows him to be awake and alert, oriented times three with appropriate mood and affect and conversational. His white count today is 2.8 with a hemoglobin and hematocrit of 10.8 and 34.2. Platelet count is 136 with a differential that shows 79% neutrophils, 13% lymphocytes, 3% monocytes. There are no immature forms. No toxic granulations. Blood gases this morning show a pH of 7.44, a pCO2 of 30 and a pO2 of 105 with a base deficit of -2.9. Chemistries today show essentially normal electrolytes with a BUN and creatinine of 32 and 1.18, a calcium of 8.0 and a glucose of 160. His chest x-ray today shows his lung fully expanded to the chest wall. There is an appearance of air below the diaphragm, but I think it is bibasilar atelectasis. There is no clinical evidence of a hollow viscus rupture clinically. He has bilateral infiltrates, right greater than the left. There is some slight subcutaneous emphysema in the upper chest wall. I have gone over the frozen section with Dr. Lemos of pathology. They do not appear to have granulomas. There is alveolar wall proliferation. Final pathology is still pending. IMPRESSION: 1. Indolent inflammatory pneumonitis, unknown cause. 2. Hypertension. 3. Atrial fibrillation. 4. Celiac sprue. 5. History of prostate cancer, status post resection. 6. 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
--- NOTE | 2016-10-23 16:31 | IPN ---
DATE: 10/23/2016 Mr. Sanches seems to be doing very well. He had surgery with Dr. Ac on 10/22/16 with a video-assisted thoracic surgery, a wedge resection of the right upper lobe. The patient had extensive lysis of adhesions and a bronchoscopy. Biopsy is still pending. He has a chest tube in place with some bloody drainage. He denies any complaints. No pain. He has had no fever in 24 hours, which was surprising. Heart: Normal S1, S2 with no murmurs, rubs or gallops. Lungs are diminished at the bases but clear. Abdomen is soft, nontender. No hepatosplenomegaly. Extremities: No edema. LABORATORY DATA: White count is 2.8, hemoglobin 10.8, hematocrit 34.2, platelets 136, 78% neutrophils, 13% lymphocytes. Sodium 134, potassium 4.9, chloride 101, bicarbonate 24, BUN 32, creatinine 1.1, glucose 160, calcium 8. QuantiFERON TB Gold was indeterminate. Cryptococcus antigen antibody, Histoplasma antigen antibody pending. Chest x-ray 10/23 shows bilateral infiltrates, not significantly changed. Small left pleural effusion, some air under the left hemidiaphragm, probably related to surgery. IMPRESSION/PLAN 1. Multiple pulmonary nodules. Biopsy is pending status post right upper lung resection.Further workup for pulmonary lesions include Cryptococcus antigen antibody, Histoplasma antigen and antibody. QuantiFERON TB Gold is indeterminate. I doubt this is the cause of these pulmonary infiltrates , but will await biopsy. 2. Fever has resolved, which is surprising. Could have been related to drug fever. 3. Leukopenia. We will get consent for HIV testing from the patient, although my suspicion is very low. 4. Abnormal LFTS patient has fatty liver by history but these are significantly worse Add also liver profile to current blood work as the patient's liver function tests (LFTs) were quite high on 10/19. If remains elevated, will also add hepatitis serology. MTDD
--- NOTE | 2016-10-23 20:57 | IPNPDOC ---
Subjective Date Seen The patient was seen on 10/23/16. Subjective Chief Complaint/HPI The patient is a 71-year-old male admitted with a reason for visit of Atrial Fib With Rvr. Events since last encounter pt seen and examined, was sleeping comfortably in bed, chest tube in place, no overnight events, he went into afib with rvr post op received one dose of metoprolol which controlled his rate Objective Physical Examination General Exam: Positive: Alert, Cooperative, No Acute Distress Eye Exam: Positive: PERRLA, Conjunctiva & lids normal, EOMI, Negative: Sclera icteric ENT Exam: Positive: Atraumatic, Mucous membr. moist/pink, Pharynx Normal Neck Exam: Positive: Supple, Negative: JVD, thyromegaly Chest Exam: Positive: Clear to auscultation, Normal air movement Heart Exam: Positive: Irregular Rhythm, Normal S1, Normal S2 Telemetry: Positive: Atrial fibrillation Abdomen Exam: Positive: Normal bowel sounds, Soft, Negative: Tenderness, Hepatospenomegaly Extremity Exam: Positive: Normal pulses, Negative: Clubbing, Cyanosis, Edema Skin Exam: Positive: Nl turgor and temperature, Negative: Rash, Breakdown Assessment /Plan Problems (1) Abnormal CT scan of lung Status: Acute Problem Text: with spiculated nodules, mediastinal lymph nodes and patchy consolidations differential includes infection , inflammation or metastatic malignancy had lung biopsy shows chronic interstitial inflammation. s/p biopsy with dr reece, with chest tube in place, (2) Fever Status: Resolved Problem Text: no fevers overnight Dr souza saw pt sent out serology testing for histoplasmosis discontinued antibiotics for now s/p lung biopsy by dr reece Patient has leukopenia slightly worse (3) Postobstructive pneumonia Status: Acute Problem Text: patient finished 7days of zosyn and 5 days of azithromycin (4) Atrial fibrillation with RVR Status: Acute Problem Text: still in afib rate is being controlled with digoxin and metoprolol. try to increase dose of metoprolol. started on eliquis. (5) Hypertension Status: Chronic Problem Text: now bp soft stopped benicar, get echo. try to increase metoprolol (6) Iron deficiency anemia Status: Chronic (7) Celiac disease Status: Chronic (8) History of prostate cancer Status: Chronic Problem Text: had radical prostatectomy in 2013. (9) Leucopenia Status: Acute Response to Treatment: Stable Problem Text: infection or medication related. (10) Elevated liver enzymes Status: Acute Response to Treatment: Worse Problem Text: unknown etiology Plan/VTE VTE Prophylaxis Ordered?: Yes VS, I&O, 24H, Fishbone Vital Signs/I&O Vital Signs Date Time Temp Pulse Resp B/P (MAP) Pulse Ox O2 Delivery O2 Flow Rate FiO2 10/23/16 20:00 98.2 90 18 111/62 (78) 96 Nasal Cannula 2.0 I&O- Last 24 Hours up to 6 AM 10/23/16 06:00 Intake Total 2980 ml Output Total 1470 ml Balance 1510 ml Laboratory Data 24H LABS Laboratory Tests 2 10/23/16 04:54: White Blood Count 2.8L, Red Blood Count 4.08L, Hemoglobin 10.8L, Hematocrit 34.2L, Mean Corpuscular Volume 84.0, Mean Corpuscular Hemoglobin 26.5L, Mean Corpuscular Hemoglobin Concent 31.6L, Red Cell Distribution Width 14.9H, Platelet Count 136L, Neutrophils (%) (Auto) 79.8H, Lymphocytes (%) (Auto) 13.6L , Monocytes (%) (Auto) 3.8, Eosinophils (%) (Auto) 0.1, Basophils (%) (Auto) 0.3 , Neutrophils # (Auto) 2.2, Lymphocytes # (Auto) 0.4L, Monocytes # (Auto) 0.1, Eosinophils # (Auto) 0.0, Basophils # (Auto) 0.0, Large Unclassified Cells % 2.5 , Large Unclassified Cells # 0.1, Anion Gap 9, Glomerular Filtration Rate > 60.0 , Blood Urea Nitrogen 32H, Creatinine 1.18, Sodium Level 134L, Potassium Level 4.9, Chloride Level 101, Carbon Dioxide Level 24, Calcium Level 8.0L 10/23/16 05:39: Blood Gas Bicarbonate Standard 22.1, Arterial Blood pH 7.440, Arterial Blood Partial Pressure CO2 30.7L, Arterial Blood Partial Pressure O2 105.8H, Arterial Blood Total CO2 21.3L, Arterial Blood HCO3 20.4L, Arterial Blood Base Excess - 2.9L, Arterial Blood Oxygen Saturation 98.0 CBC/BMP Laboratory Tests 10/23/16 04:54 Red Blood Count 4.08 L, Mean Corpuscular Volume 84.0, Mean Corpuscular Hemoglobin 26.5 L, Mean Corpuscular Hemoglobin Concent 31.6 L, Red Cell Distribution Width 14.9 H, Neutrophils (%) (Auto) 79.8 H, Lymphocytes (%) (Auto ) 13.6 L, Monocytes (%) (Auto) 3.8, Eosinophils (%) (Auto) 0.1, Basophils (%) ( Auto) 0.3, Neutrophils # (Auto) 2.2, Lymphocytes # (Auto) 0.4 L, Monocytes # ( Auto) 0.1, Eosinophils # (Auto) 0.0, Basophils # (Auto) 0.0, Calcium Level 8.0 L Microbiology Microbiology 10/21/16 Blood Culture - Preliminary, Resulted No Growth after 48 hours. All Specime... 10/20/16 Blood Culture - Preliminary, Resulted No Growth after 72 hours. All specime... 10/20/16 Fungal Smear, Received Pending 10/20/16 Blood Fungal Culture, Received Pending 10/22/16 Acid Fast Stain, Received Pending 10/22/16 Mycobacterial Culture, Received Pending 10/22/16 Fungal Smear, Received Pending 10/22/16 Fungal Culture, Received Pending 10/20/16 Fungal Smear, Received Pending 10/20/16 Fungal Culture, Received Pending 10/22/16 Bacterial Culture, Unverified Pending 10/22/16 Anaerobic Culture, Unverified Pending 10/13/16 Acid Fast Stain - Final, Resulted 10/13/16 Mycobacterial Culture, Resulted Pending 10/13/16 Fungal Smear, Resulted Pending 10/13/16 Fungal Culture, Resulted Pending 10/13/16 Gram Stain - Final, Complete 10/13/16 Bacterial Culture - Final, Complete HILLARY BURLESON DO Oct 23, 2016 20:57
[2016-10-23 21:49] LABS: ALBUMIN 2.1 GM/DL (3.2-5.2); ALBUMIN/GLOBULIN RATIO 0.64 (1.00-1.93); ALKALINE PHOSPHATASE 532 U/L (45-117); ALT/SGPT 125 U/L (12-78); AST/SGOT 264 U/L (15-37); BILIRUBIN,DIRECT 1.2 MG/DL (0.0-0.2); BILIRUBIN,TOTAL 1.5 MG/DL (0.2-1.0); TOTAL PROTEIN 5.4 GM/DL (6.4-8.2)
[2016-10-24] VITALS (7 sets, daily range): BP systolic 93–115; BP diastolic 55–71
[2016-10-24] MEDS: LEVALBUTEROL 1.25 MG/0.5 ML CONCENTRATE NEB NEB SCH ×4 (01:15→19:34)
[2016-10-24] MEDS: IBUPROFEN 600 MG TAB PO PRN ×2 (01:40→19:22)
[2016-10-24 05:20] LABS: BASO % 0.3 % (0.0-1.0); EOS % 0.3 % (0.0-3.0); LARGE UNSTAINED CELL # 0.1 K/mm3 (0.0-0.4); LARGE UNSTAINED CELL % 2.5 % (0.0-4.0); LYMPH # 0.4 K/mm3 (1.5-4.5); LYMPH % 17.4 % (24.0-44.0); MEAN CORPUSCULAR HEMOGLOBIN 28.6 pg (27.0-33.0); MEAN CORPUSCULAR HGB CONC 33.9 g/dl (32.0-36.5); MEAN CORPUSCULAR VOLUME 84.3 fl (80.0-96.0); MONO # 0.2 K/mm3 (0.0-0.8); MONO % 7.1 % (0.0-5.0); NEUTROPHILS # 1.7 K/mm3 (1.8-7.7); NEUTROPHILS % 72.3 % (36.0-66.0); PLATELET COUNT, AUTOMATED 145 k/mm3 (150-450); WHITE BLOOD COUNT 2.4 K/mm3 (4.0-10.0)
[2016-10-24 05:38] LABS: ANION GAP 7 MEQ/L (8-16); BLOOD UREA NITROGEN 25 MG/DL (7-18); CALCIUM LEVEL 7.9 MG/DL (8.8-10.2); CARBON DIOXIDE LEVEL 25 MEQ/L (21-32); CHLORIDE LEVEL 104 MEQ/L (98-107); CREATININE FOR GFR 0.93 MG/DL (0.70-1.30); GLOMERULAR FILTRATION RATE > 60.0 (>42); GLUCOSE, FASTING 117 MG/DL (83-110); POTASSIUM SERUM 4.3 MEQ/L (3.5-5.1); SODIUM LEVEL 136 MEQ/L (136-145)
[2016-10-24] MEDS: SLF 3 ML SYR IV SCH ×3 (05:58→21:21)
[2016-10-24 08:07] LABS: CRYPTOCOCCUS ANTIBODY SERUM Negative (Neg:<1:2); CRYPTOCOCCUS ANTIGEN SER Negative (Negative); HISTOPLASMOSIS ANTIBODY Negative (Neg:<1:1)
[2016-10-24] MEDS: METOPROLOL TART 25 MG TABLET PO SCH ×2 (09:00→21:17)
--- NOTE | 2016-10-24 09:02 | REP ---
CHEST, TWO VIEWS: Two views of the chest are performed and compared to a prior study of 10/23/2016. Right chest tube remains in place. I do not see a significant pneumothorax. Right lung opacities are unchanged. Streaky interstitial opacities in the left base are unchanged. Tiny amount of free air is again seen beneath the diaphragms, decreased since prior study. Cardiomediastinal silhouette is unchanged. IMPRESSION: Essentially stable exam. Signed by Joe Gutierrez MD 10/24/2016 04:35 P
[2016-10-24 09:10] LABS: ALBUMIN 1.9 GM/DL (3.2-5.2); ALBUMIN/GLOBULIN RATIO 0.56 (1.00-1.93); ALKALINE PHOSPHATASE 588 U/L (45-117); ALT/SGPT 110 U/L (12-78); AST/SGOT 209 U/L (15-37); BILIRUBIN,TOTAL 1.2 MG/DL (0.2-1.0); TOTAL PROTEIN 5.3 GM/DL (6.4-8.2)
[2016-10-24] MEDS: LACTOBACILLUS ACIDOPHILUS CAP (BACID) PO SCH ×2 (09:59→21:20)
[2016-10-24] MEDS: DOCUSATE SODIUM 100 MG CAP PO SCH ×2 (09:59→21:16)
[2016-10-24] MEDS: DIGOXIN 0.25 MG TAB PO SCH (09:59)
[2016-10-24] MEDS: FERROUS SULFATE 325MG TAB PO SCH (09:59)
[2016-10-24] MEDS: OCUVITE 1 TAB PO SCH ×2 (10:00→21:19)
[2016-10-24] MEDS: HEPARIN SOD (PORCINE) 5000 UNITS/ML VIAL SC SCH ×2 (10:00→21:19)
[2016-10-24] MEDS: APIXABAN 5 MG TAB (ELIQUIS) PO SCH ×2 (10:00→21:19)
[2016-10-24] MEDS: VITAMIN D 1,000 INTERNATIONAL UNITS TABLET PO SCH (10:00)
[2016-10-24] MEDS: MOM 30ML SUSPENSION UDC PO SCH (10:01)
[2016-10-24] MEDS: PANTOPRAZOLE 40MG INJ (PROTONIX) (C9113) IV SCH (10:01)
--- NOTE | 2016-10-24 12:28 | IPN ---
DATE: 10/24/2016 Time patient was seen was this afternoon around 09:30. Patient has been seen and examined at bedside. No acute events overnight. Patient is feeling about the same. Denies any fevers or chills, any chest pain, any trouble breathing, abdominal pains, nausea, vomiting, any diarrhea, or any problem with urination. Patient does admit to constipation for the past two days. Denies any other current new complaints. PHYSICAL EXAMINATION: VITAL SIGNS: Temperature was 97.4, pulse 82, respiratory rate 20, blood pressure was 93/59, oxygen saturation was 95% on room air. GENERAL: Patient is a pleasant, elderly male who was awake, alert and oriented time three, does not appear to be in distress, resting comfortably in bed with head elevated at 30 degrees. HEENT: Normocephalic, atraumatic. Extraocular motor intact. Mucosa moist. NECK: Supple. No neck lymphadenopathy. CARDIOVASCULAR: Irregularly irregular, S1, S2, 2/6 systolic heart murmur. LUNGS: Slight wheezing bilaterally. Chest tube on the right side was intact, produces sanguinous drainage. Incision was dry, clean and intact, however. ABDOMEN: Positive bowel sounds, soft, nontender, nondistended. No peritoneal signs. No ecchymosis. EXTREMITIES: No clubbing, cyanosis, or edema. SKIN: Warm and dry. NEUROLOGIC: Cranial nerves II-XII intact. No focal neurological deficit. LABORATORY DATA: WBC 12.4, hemoglobin 10, hematocrit 29.6 with a platelet count of 145. Sodium 136, potassium 4.3, chloride 104, bicarbonate 25, BUN 25, creatinine 0.93, GFR greater than 60, fasting glucose 117, calcium 7.9, total bilirubin 1.2, direct bilirubin 1, AST 209, ALT 110, alkaline phosphatase 588, total protein 5.3, albumin 1.9. Urinalysis shows 1+ protein, 7 WBC, 17 RBC, small amorphous sediment. Hepatitis panel has been negative. TB QuantiFERON gold shows indeterminate. The patient's blood culture has been negative for the past three days. The patient's culture from the lung biopsy is currently pending, including fungal culture and microbacterial culture. The patient's pathology of the lung is currently pending. The patient has a new PA and lateral chest x-ray this morning which shows essentially a stable examination. ASSESSMENT AND PLAN: 1. Multiple pulmonary nodules. Biopsy is pending, status post right upper lobe lung resection. 2. Fever has resolved which could be related to drug fever. 3. Leukopenia. Patient has been for 51 years and appears to be faithful throughout the marriage. Therefore, suspicion for HIV is low. Patient's QuantiFERON tuberculosis (TB) Gold is indeterminate. Patient's anti-Histoplasma antibody is negative. Patient's Cryptococcus antibody and antigen are negative as well. Patient has a negative hepatitis panel as well. 4. Transaminitis. We will order study to rule out autoimmune hepatitis. The patient has been discussed with attending doctor, Dr. Watts. My preceptor for this patient encounter was Dr. Jani Wtats. The preceptor was physically present in the building during the encounter and was fully available as needed. All aspects of the patient interview, examination, medical decision making process, and medical care plan development were reviewed and approved by the preceptor. The preceptor is aware and concurs with the plan as stated in the body of this note and will attest to such by his/her co-signature.
[2016-10-24] MEDS: PERCOCET 5MG/325MG TAB PO PRN (17:25)
--- NOTE | 2016-10-24 19:40 | IPNPDOC ---
Subjective Date Seen The patient was seen on 10/24/16. Subjective Chief Complaint/HPI The patient is a 71-year-old male admitted with a reason for visit of Atrial Fib With Rvr. Events since last encounter pt seen and examined, doing well, chest tube was still in place, no overnight events, no fevers overnight Constitutional: Denies: Chills, Fever, Night Sweats Pulmonary: Denies: Dyspnea, Cough Cardiovascular: Reports: Chest Pain Objective Physical Examination General Exam: Positive: Alert, Cooperative, No Acute Distress Eye Exam: Positive: PERRLA, Conjunctiva & lids normal, EOMI, Negative: Sclera icteric ENT Exam: Positive: Atraumatic, Mucous membr. moist/pink, Pharynx Normal Neck Exam: Positive: Supple, Negative: JVD, thyromegaly Chest Exam: Positive: Normal air movement, Other (chest tube in place) Heart Exam: Positive: Irregular Rhythm, Normal S1, Normal S2 Telemetry: Positive: Atrial fibrillation Abdomen Exam: Positive: Normal bowel sounds, Soft, Negative: Tenderness, Hepatospenomegaly Extremity Exam: Positive: Normal pulses, Negative: Clubbing, Cyanosis, Edema Skin Exam: Positive: Nl turgor and temperature, Negative: Rash, Breakdown Assessment /Plan Problems (1) Elevated liver enzymes Status: Acute Response to Treatment: Improving Problem Specific Plan: Monitor Clinically Problem Text: * unknown etiology * hepatitis panel negative * autoimmune work up pending (2) Pancytopenia Status: Acute Problem Specific Plan: Monitor Clinically Problem Text: * pancytopenia unknown etiology (3) Abnormal CT scan of lung Status: Acute Problem Text: * with spiculated nodules, mediastinal lymph nodes and patchy consolidations * differential includes infection , inflammation or metastatic malignancy * had lung biopsy shows chronic interstitial inflammation. * s/p another biopsy with dr reece, with chest tube in place, (4) Fever Status: Resolved Problem Text: no fevers overnight Dr souza saw pt sent out serology testing for histoplasmosis discontinued antibiotics for now s/p lung biopsy by dr reece Patient has leukopenia slightly worse (5) Postobstructive pneumonia Status: Resolved Problem Text: patient finished 7days of zosyn and 5 days of azithromycin (6) Atrial fibrillation with RVR Status: Acute Problem Text: still in afib rate is being controlled with digoxin and metoprolol. started on eliquis. (7) Hypertension Status: Chronic (8) Iron deficiency anemia Status: Chronic (9) Celiac disease Status: Chronic (10) History of prostate cancer Status: Chronic Problem Text: had radical prostatectomy in 2013. Plan/VTE VTE Prophylaxis Ordered?: Yes VS, I&O, 24H, Fishbone Vital Signs/I&O Vital Signs Date Time Temp Pulse Resp B/P (MAP) Pulse Ox O2 Delivery O2 Flow Rate FiO2 10/24/16 17:55 18 10/24/16 16:00 2.0 10/24/16 16:00 97.5 107 114/60 (78) 95 Room Air I&O- Last 24 Hours up to 6 AM 10/24/16 06:00 Intake Total 800 ml Output Total 1620 ml Balance -820 ml Laboratory Data 24H LABS Laboratory Tests 2 10/24/16 04:41: White Blood Count 2.4L, Red Blood Count 3.51L, Hemoglobin 10.0L, Hematocrit 29.6L, Mean Corpuscular Volume 84.3, Mean Corpuscular Hemoglobin 28.6, Mean Corpuscular Hemoglobin Concent 33.9, Red Cell Distribution Width 15.0H, Platelet Count 145L, Neutrophils (%) (Auto) 72.3H, Lymphocytes (%) (Auto) 17.4L , Monocytes (%) (Auto) 7.1H, Eosinophils (%) (Auto) 0.3, Basophils (%) (Auto) 0.3, Neutrophils # (Auto) 1.7L, Lymphocytes # (Auto) 0.4L, Monocytes # (Auto) 0.2, Eosinophils # (Auto) 0.0, Basophils # (Auto) 0.0, Large Unclassified Cells % 2.5, Large Unclassified Cells # 0.1, Anion Gap 7L, Glomerular Filtration Rate > 60.0, Blood Urea Nitrogen 25H, Creatinine 0.93, Sodium Level 136, Potassium Level 4.3, Chloride Level 104, Carbon Dioxide Level 25, Calcium Level 7.9L, Aspartate Amino Transf (AST/SGOT) 209H, Alanine Aminotransferase (ALT/SGPT) 110H , Alkaline Phosphatase 588H, Total Bilirubin 1.2H, Direct Bilirubin 1.0H, Total Protein 5.3L, Albumin 1.9L, Albumin/Globulin Ratio 0.56L 10/24/16 08:42: Hepatitis A IgM Antibody NEGATIVE, Hepatitis B Surface Antigen NEGATIVE, Hepatitis B Core IgM Antibody NEGATIVE, Hepatitis C Antibody Index 0.1 10/24/16 11:14: Urine Appearance HAZY, Urine Color KEY, Urine pH 5.0, Urine Specific [place] 1.020, Urine Protein 1+H, Urine Glucose (UA) NEGATIVE, Urine Ketones NEGATIVE, Urine Urobilinogen 0.2, Urine Bilirubin NEGATIVE, Urine Leukocyte Esterase NEGATIVE, Urine Blood NEGATIVE, Urine Nitrite NEGATIVE, Urine WBC (Auto) 7H, Urine RBC (Auto) 17H, Urine Hyaline Casts (Auto) 0, Urine Bacteria (Auto) NEGATIVE, Urine Squamous Epithelial Cells 0, Urine Amorphous Sediment SMALLH, Urine Mucus (Auto) SMALL, Urine Sperm (Auto) CBC/BMP Laboratory Tests 10/24/16 04:41 Red Blood Count 3.51 L, Mean Corpuscular Volume 84.3, Mean Corpuscular Hemoglobin 28.6, Mean Corpuscular Hemoglobin Concent 33.9, Red Cell Distribution Width 15.0 H, Neutrophils (%) (Auto) 72.3 H, Lymphocytes (%) (Auto ) 17.4 L, Monocytes (%) (Auto) 7.1 H, Eosinophils (%) (Auto) 0.3, Basophils (%) (Auto) 0.3, Neutrophils # (Auto) 1.7 L, Lymphocytes # (Auto) 0.4 L, Monocytes # (Auto) 0.2, Eosinophils # (Auto) 0.0, Basophils # (Auto) 0.0, Calcium Level 7.9 L Microbiology Microbiology 10/21/16 Blood Culture - Preliminary, Resulted No Growth after 72 hours. All specime... 10/20/16 Blood Culture - Preliminary, Resulted No Growth after 72 hours. All specime... 10/20/16 Fungal Smear, Received Pending 10/20/16 Blood Fungal Culture, Received Pending 10/22/16 Acid Fast Stain, Received Pending 10/22/16 Mycobacterial Culture, Received Pending 10/22/16 Fungal Smear, Received Pending 10/22/16 Fungal Culture, Received Pending 10/20/16 Fungal Smear, Received Pending 10/20/16 Fungal Culture, Received Pending 10/22/16 Bacterial Culture - Final, Resulted 10/22/16 Anaerobic Culture, Resulted Pending HILLARY BURLESON DO Oct 24, 2016 19:40
--- NOTE | 2016-10-24 20:01 | IPN ---
DATE: 10/24/2016 This is now the second postoperative day for Myron, status post a lung wedge resection. Final pathology is still not back. His pain is being well controlled at the chest tube insertion sites and at the incision sites. He has been up walking around the room today and the nurses are going to get him up walking the circuit today. His vital signs show a maximum temperature (T max) of 98.9 with a heart rate that ranges between 82 and 107 with a respiratory rate that is constant at 20, who is 92% saturated on room air and whose blood pressure is ranging between 105/71 to 92/54. His intake and output the past 24 hours has been recorded as 1400 in and 1855 out for a negativity of 455 mL. He has put out 405 mL from the chest tube and there is a small air leak. He has put out 50 mL in the past 12 hours. On physical examination, his lungs show inspiratory rales on both sides, which are high-pitched and Velcro-like. Percussion notes are full to the diaphragm. Cardiac exam is without murmurs, clicks, gallops or rubs. I cannot feel his point of maximum impulse (PMI). S1, S2 are normal. Abdomen is soft and nontender. Bowel sounds are positive. There is no hepatomegaly. No costovertebral angle tenderness. He is slightly tympanitic and distended. Extremities show no pretibial edema. No calf tenderness. No differential swelling of the upper extremities. His skin is warm, dry and perfused without cyanosis or mottling, including that of the nail beds and the knees. Neck is supple. There is no jugular venous distention, no subcutaneous emphysema. Trachea is midline. Mouth shows his mucous membranes to be pink and moist. Lips and commissures without lesions. There is no thrush. Eyes show his pupils to be equal and reactive. Extraocular motions intact. Sclerae anicteric. Neurologic shows II-XII intact along with gross motor and gross sensation intact. Gait is not tested. Psychiatric shows him to be awake and alert, oriented times three with appropriate mood and affect and conversational. His electrolytes are normal today with a BUN and creatinine of 25 and 0.93, a glucose of 117 and a calcium of 7.9. AST and ALT are 209 and 110 respectively and continues to decrease. Albumin is 1.9 with a corresponding calcium of 7.9. His white count is 2.4 with a hemoglobin and hematocrit of 10.0 and 29.6. Platelet count is 145 and stable. Differential shows 72% neutrophils, 17% lymphocytes, 7% monocytes. There are no immature forms. No toxic granulations. There are no blood gases on him today. The Cryptococcus and Histoplasma antibodies are negative. Hepatitis antigen and antibodies are negative. His chest x-ray today shows the same patchy infiltrates which may be a bit worse today on the right side. May be secondary to atelectasis and postoperative changes from the extensive lysis of adhesions that had to take place. Costophrenic angles are sharp. There is minimal subcutaneous emphysema. Trachea midline as is the mediastinum. Lateral chest tubes do not show any posterior infiltrates other than the patchy infiltrate in the upper lobe that is seen on the PA view. IMPRESSION: 1. Indolent inflammatory pneumonitis, unknown cause. 2. Hypertension. 3. Atrial fibrillation. 4. Celiac sprue. 5. History of prostate cancer. 6. 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 7. Postoperative day #2 status post wedge resection; final pathology pending. PLAN AND DISCUSSION: We still have not secured a diagnosis to explain Mr. Sanches's fevers and the appearance of his chest x-rays and CT scans. All we can do is await final pathology. The microbiology is still pending. MAXD
[2016-10-25] VITALS (7 sets, daily range): BP systolic 94–130; BP diastolic 61–74; O2SAT 95
[2016-10-25] MEDS: LEVALBUTEROL 1.25 MG/0.5 ML CONCENTRATE NEB NEB SCH ×4 (01:36→19:31)
[2016-10-25 04:47] LABS: BASO % 0.2 % (0.0-1.0); EOS % 0.9 % (0.0-3.0); LARGE UNSTAINED CELL # 0.1 K/mm3 (0.0-0.4); LARGE UNSTAINED CELL % 3.2 % (0.0-4.0); LYMPH # 0.4 K/mm3 (1.5-4.5); LYMPH % 19.6 % (24.0-44.0); MEAN CORPUSCULAR VOLUME 84.9 fl (80.0-96.0); MONO # 0.2 K/mm3 (0.0-0.8); MONO % 7.6 % (0.0-5.0); NEUTROPHILS # 1.6 K/mm3 (1.8-7.7); NEUTROPHILS % 68.6 % (36.0-66.0); PLATELET COUNT, AUTOMATED 166 k/mm3 (150-450); RED CELL DISTRIBUTION WIDTH 15.2 % (11.5-14.5); WHITE BLOOD COUNT 2.3 K/mm3 (4.0-10.0)
[2016-10-25 05:06] LABS: ANION GAP 9 MEQ/L (8-16); BLOOD UREA NITROGEN 28 MG/DL (7-18); CALCIUM LEVEL 8.2 MG/DL (8.8-10.2); CARBON DIOXIDE LEVEL 26 MEQ/L (21-32); CHLORIDE LEVEL 104 MEQ/L (98-107); CREATININE FOR GFR 0.98 MG/DL (0.70-1.30); GLOMERULAR FILTRATION RATE > 60.0 (>42); GLUCOSE, FASTING 108 MG/DL (83-110); IMMUNOGLOBULIN G 1080 MG/DL (681-1648); POTASSIUM SERUM 4.4 MEQ/L (3.5-5.1); SODIUM LEVEL 139 MEQ/L (136-145)
[2016-10-25] MEDS: SLF 3 ML SYR IV SCH ×3 (05:48→21:16)
[2016-10-25] MEDS: PERCOCET 5MG/325MG TAB PO PRN ×2 (06:35→11:32)
[2016-10-25] MEDS: MOM 30ML SUSPENSION UDC PO SCH (09:00)
[2016-10-25] MEDS: VITAMIN D 1,000 INTERNATIONAL UNITS TABLET PO SCH (09:22)
[2016-10-25] MEDS: PANTOPRAZOLE 40MG INJ (PROTONIX) (C9113) IV SCH (09:22)
[2016-10-25] MEDS: APIXABAN 5 MG TAB (ELIQUIS) PO SCH ×2 (09:22→21:15)
[2016-10-25] MEDS: OCUVITE 1 TAB PO SCH ×2 (09:22→21:16)
[2016-10-25] MEDS: DIGOXIN 0.25 MG TAB PO SCH (09:22)
[2016-10-25] MEDS: FERROUS SULFATE 325MG TAB PO SCH (09:22)
[2016-10-25] MEDS: DOCUSATE SODIUM 100 MG CAP PO SCH ×2 (09:22→21:16)
[2016-10-25] MEDS: METOPROLOL TART 25 MG TABLET PO SCH ×2 (09:23→21:15)
[2016-10-25] MEDS: HEPARIN SOD (PORCINE) 5000 UNITS/ML VIAL SC SCH ×2 (09:23→21:16)
[2016-10-25] MEDS: LACTOBACILLUS ACIDOPHILUS CAP (BACID) PO SCH ×2 (09:24→21:14)
[2016-10-25] MEDS: NYSTATIN 500,000 U/5 ML SUSP UDC PO SCH ×4 (11:29→21:15)
--- NOTE | 2016-10-25 13:34 | IPNPDOC ---
Subjective Date Seen The patient was seen on 10/25/16. Subjective Chief Complaint/HPI The patient is a 71-year-old male admitted with a reason for visit of Atrial Fib With Rvr. Constitutional: Denies: Chills, Fever, Night Sweats Pulmonary: Reports: Dyspnea Cardiovascular: Denies: Chest Pain, Palpitations, Orthopnea, Paroxysmal Noc. Dyspnea, Lt Headedness Objective Physical Examination General Exam: Positive: Alert, Cooperative, No Acute Distress Eye Exam: Positive: PERRLA, Conjunctiva & lids normal, EOMI, Negative: Sclera icteric ENT Exam: Positive: Atraumatic, Mucous membr. moist/pink, Pharynx Normal Neck Exam: Positive: Supple, Negative: JVD, thyromegaly Chest Exam: Positive: Normal air movement, Other (chest tube in place) Heart Exam: Positive: Irregular Rhythm, Normal S1, Normal S2 Telemetry: Positive: Atrial fibrillation Abdomen Exam: Positive: Normal bowel sounds, Soft, Negative: Tenderness, Hepatospenomegaly Extremity Exam: Positive: Normal pulses, Negative: Clubbing, Cyanosis, Edema Skin Exam: Positive: Nl turgor and temperature, Negative: Rash, Breakdown Assessment /Plan Problems (1) Elevated liver enzymes Status: Acute Response to Treatment: Improving Problem Specific Plan: Monitor Clinically Problem Text: * unknown etiology * hepatitis panel negative * autoimmune work up pending (2) Pancytopenia Status: Acute Response to Treatment: Improving Problem Specific Plan: Monitor Clinically Problem Text: * pancytopenia unknown etiology (3) Abnormal CT scan of lung Status: Acute Problem Text: * with spiculated nodules, mediastinal lymph nodes and patchy consolidations * differential includes infection , inflammation or metastatic malignancy * had lung biopsy shows chronic interstitial inflammation. * s/p another biopsy with dr reece, with chest tube in place, (4) Fever Status: Resolved Problem Text: no fevers overnight Dr souza saw pt sent out serology testing for histoplasmosis discontinued antibiotics for now s/p lung biopsy by dr reece Patient has leukopenia slightly worse (5) Postobstructive pneumonia Status: Resolved Problem Text: patient finished 7days of zosyn and 5 days of azithromycin (6) Atrial fibrillation with RVR Status: Acute Problem Text: still in afib rate is being controlled with digoxin and metoprolol. started on eliquis. (7) Hypertension Status: Chronic (8) Iron deficiency anemia Status: Chronic (9) Celiac disease Status: Chronic (10) History of prostate cancer Status: Chronic Problem Text: had radical prostatectomy in 2013. Plan/VTE VTE Prophylaxis Ordered?: Yes VS, I&O, 24H, Fishbone Vital Signs/I&O Vital Signs Date Time Temp Pulse Resp B/P (MAP) Pulse Ox O2 Delivery O2 Flow Rate FiO2 10/25/16 12:00 97.7 67 20 117/74 (88) 96 Room Air 10/24/16 16:00 2.0 I&O- Last 24 Hours up to 6 AM 10/25/16 06:00 Intake Total 820 ml Output Total 950 ml Balance -130 ml Laboratory Data 24H LABS Laboratory Tests 2 10/25/16 04:09: White Blood Count 2.3L, Red Blood Count 3.66L, Hemoglobin 10.2L, Hematocrit 31.0L, Mean Corpuscular Volume 84.9, Mean Corpuscular Hemoglobin 28.0, Mean Corpuscular Hemoglobin Concent 33.0, Red Cell Distribution Width 15.2H, Platelet Count 166, Neutrophils (%) (Auto) 68.6H, Lymphocytes (%) (Auto) 19.6L, Monocytes (%) (Auto) 7.6H, Eosinophils (%) (Auto) 0.9, Basophils (%) (Auto) 0.2 , Neutrophils # (Auto) 1.6L, Lymphocytes # (Auto) 0.4L, Monocytes # (Auto) 0.2, Eosinophils # (Auto) 0.0, Basophils # (Auto) 0.0, Large Unclassified Cells % 3.2 , Large Unclassified Cells # 0.1, Anion Gap 9, Glomerular Filtration Rate > 60.0 , Blood Urea Nitrogen 28H, Creatinine 0.98, Sodium Level 139, Potassium Level 4.4, Chloride Level 104, Carbon Dioxide Level 26, Calcium Level 8.2L, Immunoglobulin G 1080 CBC/BMP Laboratory Tests 10/25/16 04:09 Red Blood Count 3.66 L, Mean Corpuscular Volume 84.9, Mean Corpuscular Hemoglobin 28.0, Mean Corpuscular Hemoglobin Concent 33.0, Red Cell Distribution Width 15.2 H, Neutrophils (%) (Auto) 68.6 H, Lymphocytes (%) (Auto ) 19.6 L, Monocytes (%) (Auto) 7.6 H, Eosinophils (%) (Auto) 0.9, Basophils (%) (Auto) 0.2, Neutrophils # (Auto) 1.6 L, Lymphocytes # (Auto) 0.4 L, Monocytes # (Auto) 0.2, Eosinophils # (Auto) 0.0, Basophils # (Auto) 0.0, Calcium Level 8.2 L Microbiology Microbiology 10/21/16 Blood Culture - Preliminary, Resulted No Growth after 72 hours. All specime... 10/20/16 Blood Culture - Final, Complete NO GROWTH AFTER 5 DAYS 10/20/16 Fungal Smear, Received Pending 10/20/16 Blood Fungal Culture, Received Pending 10/22/16 Acid Fast Stain, Received Pending 10/22/16 Mycobacterial Culture, Received Pending 10/22/16 Fungal Smear, Received Pending 10/22/16 Fungal Culture, Received Pending 10/20/16 Fungal Smear, Received Pending 10/20/16 Fungal Culture, Received Pending 10/22/16 Bacterial Culture - Final, Complete 10/22/16 Anaerobic Culture - Final, Complete HILLARY BURLESON DO Oct 25, 2016 13:34
--- NOTE | 2016-10-25 15:07 | REP ---
CHEST, TWO VIEWS: HISTORY: Wedge resection. COMPARISON: 10/24/2016 Parenchymal densities are present in the right lower lobe, unchanged compared to the previous study. Linear densities are present in the left lower lobe, consistent with atelectasis or scar. A chest tube is present in the right hemithorax. A very small right pneumothorax is present. The heart is normal in size. The pulmonary vasculature is normal in appearance. The bony structure is intact. Previously noted free abdominal air is not seen on the present examination. IMPRESSION: 1. There are parenchymal densities in the right lung, unchanged compared to the previous study. 2. Small right pneumothorax. A right chest tube is present. Signed by Jeison Alex MD 10/25/2016 08:56 A
[2016-10-25] MEDS: NORCO, ANEXSIA 5/325MG TABLET (HYDROcodone/ACETAMINOPHEN) PO PRN (21:15)
[2016-10-26] VITALS (7 sets, daily range): BP systolic 107–144; BP diastolic 62–76; O2SAT 91
[2016-10-26] MEDS: PERCOCET 5MG/325MG TAB PO PRN ×4 (00:24→23:32)
[2016-10-26] MEDS: LEVALBUTEROL 1.25 MG/0.5 ML CONCENTRATE NEB NEB SCH ×4 (01:56→20:49)
[2016-10-26 04:38] LABS: MEAN CORPUSCULAR HEMOGLOBIN 26.5 pg (27.0-33.0); MEAN CORPUSCULAR HGB CONC 31.3 g/dl (32.0-36.5); MEAN CORPUSCULAR VOLUME 84.7 fl (80.0-96.0); PLATELET COUNT, AUTOMATED 179 k/mm3 (150-450); RED CELL DISTRIBUTION WIDTH 15.5 % (11.5-14.5); WHITE BLOOD COUNT 2.1 K/mm3 (4.0-10.0)
[2016-10-26 04:41] LABS: BASO % 0.2 % (0.0-1.0); EOS % 0.4 % (0.0-3.0); LARGE UNSTAINED CELL % 2.4 % (0.0-4.0); LYMPH # 0.4 K/mm3 (1.5-4.5); MONO % 6.9 % (0.0-5.0); NEUTROPHILS # 1.5 K/mm3 (1.8-7.7); NEUTROPHILS % 72.1 % (36.0-66.0)
[2016-10-26 04:42] LABS: ADD MORPHOLOGY? NO; DIFF SLIDE NUMBER 10; LARGE UNSTAINED CELL # 0.1 K/mm3 (0.0-0.4); MONO # 0.1 K/mm3 (0.0-0.8)
[2016-10-26 04:50] LABS: ANION GAP 6 MEQ/L (8-16); BLOOD UREA NITROGEN 24 MG/DL (7-18); CALCIUM LEVEL 7.9 MG/DL (8.8-10.2); CARBON DIOXIDE LEVEL 29 MEQ/L (21-32); CHLORIDE LEVEL 103 MEQ/L (98-107); CREATININE FOR GFR 0.99 MG/DL (0.70-1.30); GLOMERULAR FILTRATION RATE > 60.0 (>42); GLUCOSE, FASTING 108 MG/DL (83-110); POTASSIUM SERUM 4.4 MEQ/L (3.5-5.1); SODIUM LEVEL 138 MEQ/L (136-145)
[2016-10-26] MEDS: SLF 3 ML SYR IV SCH ×3 (05:41→22:00)
--- NOTE | 2016-10-26 08:21 | IPN ---
DATE: 10/25/2016 This is now the third postoperative day for Mr. Sanches. He still has a small air leak. His pain is being well controlled at both the incisions and the chest tube sites. His vital signs show a temperature maximum (T-max) of 97.9 with a heart rate that ranges between 79 and 92, with a respiratory rate of 20 to 22 without the use of accessory muscles, who is 94% saturated on room air and whose blood pressure is ranging between 102/64 to 94/61. His intake and output the past 24 hours has been recorded as 1060 in and 970 out for a positivity of 90 mL. He has put out 95 mL from the chest tube. He weighs 97.7 kg today compared to 99.1 kg yesterday. He still has an air leak. On physical examination, he has bibasilar high pitched crackles along with some lower pitched rales throughout the entire inspiratory cycle. Percussion note is full to the diaphragm. Cardiac Exam: Without murmurs, clicks, gallops, or rubs. I cannot feel his PMI. S1, S2 are normal. Abdomen: Soft. Nontender. Bowel sounds are positive. There is no hepatomegaly. No costovertebral angle (CVA) tenderness. Extremities: Show no pretibial edema. No calf tenderness. No differential swelling of the upper extremities. Skin: Warm, dry and perfused. Without cyanosis or mottling, including that of the nail beds and knees. Neck: Supple. There is no jugular venous distention. No subcutaneous emphysema. Trachea is midline. Mouth: Shows his mucous membranes to be pink and moist. Lips and commissures are without lesions. He does have thrush on the posterior pharynx. Eyes: Show his pupils to be equal and reactive. Extraocular movements intact. Sclerae nonicteric. Neurologic: Shows II-XII intact along with gross motor and gross sensation intact. Gait is not tested. Psychiatric shows him to be awake, alert, and oriented times three with appropriate mood and affect and conversational. His white count today is 2.3 with hemoglobin and hematocrit of 10.2 and 31.0 and a platelet count of 166. Differential shows 68% neutrophils, 19% lymphocytes, 7% monocytes. There are no immature forms and no toxic granulations. Electrolytes are normal with a BUN and creatinine of 28 and 0.98 and a glucose of 108 and calcium of 8.2. There are no blood gases on him today. His chest x-ray today shows a small lateral air space of approximately 2-3 mm. He has the left infiltrative process which could very well be postoperative changes additionally. However, I do see that the staple line is superior to the infiltrative mid lung process. It is essentially unchanged from yesterday given technique changes. The costophrenic angles are sharp. The chest tube is in good place. IMPRESSION: 1. Indolent inflammatory pneumonitis unknown cause. 2. Hypertension. 3. Atrial fibrillation. 4. Celiac sprue. 5. History of prostate cancer. 6. Prior bird and animal exposure. 7. Postoperative day #3 status post wedge resection, final pathology pending. 8. Leukopenia, but no significance. PLAN AND DISCUSSION: I have already transferred him to the progressive care unit (PCU). There is no PCU bed available. I will continue his chest tubes on suction as he still has an air leak. That is not surprising. He is also very stiff from his underlying process and is not completely expanded to the chest wall at this point in time. I will maintain him on 20 cm of suction rather than increasing him to 40.
[2016-10-26] MEDS: FERROUS SULFATE 325MG TAB PO SCH (08:27)
[2016-10-26] MEDS: LACTOBACILLUS ACIDOPHILUS CAP (BACID) PO SCH ×2 (08:27→20:34)
[2016-10-26] MEDS: DIGOXIN 0.25 MG TAB PO SCH (08:27)
[2016-10-26] MEDS: DOCUSATE SODIUM 100 MG CAP PO SCH ×2 (08:28→20:34)
[2016-10-26] MEDS: METOPROLOL TART 25 MG TABLET PO SCH ×2 (08:28→20:34)
[2016-10-26] MEDS: VITAMIN D 1,000 INTERNATIONAL UNITS TABLET PO SCH (08:28)
[2016-10-26] MEDS: APIXABAN 5 MG TAB (ELIQUIS) PO SCH ×2 (08:28→20:34)
[2016-10-26] MEDS: NYSTATIN 500,000 U/5 ML SUSP UDC PO SCH ×4 (08:28→20:34)
[2016-10-26] MEDS: OCUVITE 1 TAB PO SCH ×2 (08:28→20:33)
[2016-10-26] MEDS: HEPARIN SOD (PORCINE) 5000 UNITS/ML VIAL SC SCH ×2 (08:29→20:34)
[2016-10-26] MEDS: MOM 30ML SUSPENSION UDC PO SCH (08:29)
[2016-10-26] MEDS: NORCO, ANEXSIA 5/325MG TABLET (HYDROcodone/ACETAMINOPHEN) PO PRN ×2 (08:30→14:30)
[2016-10-26] MEDS: PANTOPRAZOLE 40MG TAB (PROTONIX) PO SCH (09:25)
--- NOTE | 2016-10-26 15:06 | REP ---
CHEST, TWO VIEWS: HISTORY: Wedge resection. COMPARISON: 10/25/2016 Parenchymal densities are present in the right lower lobe, unchanged compared to the previous study. Linear densities are present in the left lower lobe consistent with atelectasis or scar. A chest tube is present in the right hemithorax. A very small right pneumothorax is present. The heart is normal in size. The pulmonary vasculature is normal in appearance. The bony structure is intact. IMPRESSION: 1. There are parenchymal densities in the right lung, unchanged compared to the previous study. 2. Small right pneumothorax. A chest tube is present in the right hemithorax. Signed by Jeison Alex MD 10/26/2016 03:19 P
--- NOTE | 2016-10-26 18:07 | IPNPDOC ---
Subjective Date Seen The patient was seen on 10/26/16. Subjective Chief Complaint/HPI The patient is a 71-year-old male admitted with a reason for visit of Atrial Fib With Rvr. Events since last encounter pt seen and examined, doing well no other events overnight Objective Physical Examination General Exam: Positive: Alert, Cooperative, No Acute Distress Eye Exam: Positive: PERRLA, Conjunctiva & lids normal, EOMI, Negative: Sclera icteric ENT Exam: Positive: Atraumatic, Mucous membr. moist/pink, Pharynx Normal Neck Exam: Positive: Supple, Negative: JVD, thyromegaly Chest Exam: Positive: Normal air movement, Other (chest tube in place) Heart Exam: Positive: Irregular Rhythm, Normal S1, Normal S2 Telemetry: Positive: Atrial fibrillation Abdomen Exam: Positive: Normal bowel sounds, Soft, Negative: Tenderness, Hepatospenomegaly Extremity Exam: Positive: Normal pulses, Negative: Clubbing, Cyanosis, Edema Skin Exam: Positive: Nl turgor and temperature, Negative: Rash, Breakdown Assessment /Plan Problems (1) Abnormal CT scan of lung Status: Acute Problem Text: * with spiculated nodules, mediastinal lymph nodes and patchy consolidations * differential includes infection , inflammation or metastatic malignancy * had lung biopsy shows chronic interstitial inflammation. * s/p another biopsy with dr reece, with chest tube in place, (2) Elevated liver enzymes Status: Acute Response to Treatment: Improving Problem Specific Plan: Monitor Clinically Problem Text: * unknown etiology * hepatitis panel negative * autoimmune work up pending (3) Pancytopenia Status: Acute Response to Treatment: Improving Problem Specific Plan: Monitor Clinically Problem Text: * pancytopenia unknown etiology (4) Fever Status: Resolved Problem Text: no fevers overnight Dr souza saw pt sent out serology testing for histoplasmosis discontinued antibiotics for now s/p lung biopsy by dr reece Patient has leukopenia slightly worse (5) Postobstructive pneumonia Status: Resolved Problem Text: patient finished 7days of zosyn and 5 days of azithromycin (6) Atrial fibrillation with RVR Status: Acute Problem Text: still in afib rate is being controlled with digoxin and metoprolol. started on eliquis. (7) Hypertension Status: Chronic (8) Iron deficiency anemia Status: Chronic (9) Celiac disease Status: Chronic (10) History of prostate cancer Status: Chronic Problem Text: had radical prostatectomy in 2013. Plan/VTE VTE Prophylaxis Ordered?: Yes VS, I&O, 24H, Fishbone Vital Signs/I&O Vital Signs Date Time Temp Pulse Resp B/P (MAP) Pulse Ox O2 Delivery O2 Flow Rate FiO2 10/26/16 17:02 16 10/26/16 16:00 97.7 79 110/65 (80) 96 Room Air 10/24/16 16:00 2.0 I&O- Last 24 Hours up to 6 AM 10/26/16 06:00 Intake Total 1930 ml Output Total 1085 ml Balance 845 ml Laboratory Data 24H LABS Laboratory Tests 2 10/26/16 04:22: White Blood Count 2.1L, Red Blood Count 3.69L, Hemoglobin 9.8L, Hematocrit 31.2L , Mean Corpuscular Volume 84.7, Mean Corpuscular Hemoglobin 26.5L, Mean Corpuscular Hemoglobin Concent 31.3L, Red Cell Distribution Width 15.5H, Platelet Count 179, Neutrophils (%) (Auto) 72.1H, Lymphocytes (%) (Auto) 18.0L, Monocytes (%) (Auto) 6.9H, Eosinophils (%) (Auto) 0.4, Basophils (%) (Auto) 0.2 , Neutrophils # (Auto) 1.5L, Lymphocytes # (Auto) 0.4L, Monocytes # (Auto) 0.1, Eosinophils # (Auto) 0.0, Basophils # (Auto) 0.0, Large Unclassified Cells % 2.4 , Large Unclassified Cells # 0.1, Platelet Estimate , Anion Gap 6L, Glomerular Filtration Rate > 60.0, Blood Urea Nitrogen 24H, Creatinine 0.99, Sodium Level 138, Potassium Level 4.4, Chloride Level 103, Carbon Dioxide Level 29, Calcium Level 7.9L CBC/BMP Laboratory Tests 10/26/16 04:22 Red Blood Count 3.69 L, Mean Corpuscular Volume 84.7, Mean Corpuscular Hemoglobin 26.5 L, Mean Corpuscular Hemoglobin Concent 31.3 L, Red Cell Distribution Width 15.5 H, Neutrophils (%) (Auto) 72.1 H, Lymphocytes (%) (Auto ) 18.0 L, Monocytes (%) (Auto) 6.9 H, Eosinophils (%) (Auto) 0.4, Basophils (%) (Auto) 0.2, Neutrophils # (Auto) 1.5 L, Lymphocytes # (Auto) 0.4 L, Monocytes # (Auto) 0.1, Eosinophils # (Auto) 0.0, Basophils # (Auto) 0.0, Calcium Level 7.9 L Microbiology Microbiology 10/21/16 Blood Culture - Final, Complete NO GROWTH AFTER 5 DAYS 10/20/16 Blood Culture - Final, Complete NO GROWTH AFTER 5 DAYS 10/20/16 Fungal Smear, Received Pending 10/20/16 Blood Fungal Culture, Received Pending 10/22/16 Acid Fast Stain, Received Pending 10/22/16 Mycobacterial Culture, Received Pending 10/22/16 Fungal Smear, Received Pending 10/22/16 Fungal Culture, Received Pending 10/20/16 Fungal Smear, Received Pending 10/20/16 Fungal Culture, Received Pending 10/22/16 Bacterial Culture - Final, Complete 10/22/16 Anaerobic Culture - Final, Complete HILLARY BURLESON DO Oct 26, 2016 18:07
[2016-10-26] MEDS: IBUPROFEN 600 MG TAB PO PRN (20:33)
[2016-10-27] VITALS (8 sets, daily range): BP systolic 100–139; BP diastolic 61–72
[2016-10-27] MEDS: LEVALBUTEROL 1.25 MG/0.5 ML CONCENTRATE NEB NEB SCH ×4 (01:44→19:49)
[2016-10-27 04:47] LABS: BASO % 0.3 % (0.0-1.0); EOS % 0.5 % (0.0-3.0); LARGE UNSTAINED CELL # 0.1 K/mm3 (0.0-0.4); LARGE UNSTAINED CELL % 2.6 % (0.0-4.0); LYMPH # 0.3 K/mm3 (1.5-4.5); MEAN CORPUSCULAR HGB CONC 32.2 g/dl (32.0-36.5); MEAN CORPUSCULAR VOLUME 83.8 fl (80.0-96.0); MONO # 0.1 K/mm3 (0.0-0.8); MONO % 6.2 % (0.0-5.0); NEUTROPHILS # 1.7 K/mm3 (1.8-7.7); NEUTROPHILS % 75.4 % (36.0-66.0); PLATELET COUNT, AUTOMATED 177 k/mm3 (150-450); RED CELL DISTRIBUTION WIDTH 15.6 % (11.5-14.5); WHITE BLOOD COUNT 2.2 K/mm3 (4.0-10.0)
[2016-10-27 04:59] LABS: ANION GAP 7 MEQ/L (8-16); BLOOD UREA NITROGEN 22 MG/DL (7-18); CALCIUM LEVEL 7.9 MG/DL (8.8-10.2); CARBON DIOXIDE LEVEL 27 MEQ/L (21-32); CHLORIDE LEVEL 102 MEQ/L (98-107); GLOMERULAR FILTRATION RATE > 60.0 (>42); GLUCOSE, FASTING 104 MG/DL (83-110); POTASSIUM SERUM 4.1 MEQ/L (3.5-5.1); SODIUM LEVEL 136 MEQ/L (136-145)
[2016-10-27] MEDS: SLF 3 ML SYR IV SCH ×3 (05:49→21:11)
--- NOTE | 2016-10-27 07:51 | IPN ---
DATE: 10/26/2016 This is now the fourth postoperative day for Mr. Sanches. His pain is being well controlled. He still has a small air leak. He has put out minimal from the chest tube. His vital signs show a T-max of 99.8 with a heart rate that ranges between 101 and 61 in atrial fibrillation with a respiratory rate of 18 to 20 without the use of accessory muscles, who is 96% saturated on room air. His blood pressure ranges from 144/76 to 115/62. His intake and output over the past 24 hours has been recorded as 1580 in and 1190 out for a positivity of 390 mL. His has put out 65 mL from the chest tube. There is the air leak on forceful cough as described above. Weight today is 99 kilograms compared to 97 kilograms yesterday. On physical examination, he has coarse rhonchi and rales bilaterally on both side, but more on the right than the left. Percussion note is full to the diaphragm, however. Cardiac exam shows an irregular rate and rhythm without murmurs, clicks, gallops or rubs. I cannot feel his point of maximum impulse (PMI). S1 and S2 are normal. Abdomen is soft and nontender. Bowel sounds are positive. There is no hepatomegaly. No CVA tenderness. Extremities show no pretibial edema with no calf tenderness. No differential swelling of the upper extremities. Skin is warm, dry and perfused without cyanosis or mottling including that of the nail beds and knees. Neck is supple. There is no jugular venous distention. No subcutaneous emphysema. Trachea is midline. Mouth shows his mucous membranes to be pink and moist. Lips and commissures are without lesions. His thrush is much better, although there are a few residual spots. Eyes show his pupils to be equal and reactive. Extraocular movements intact. Sclerae nonicteric. Neurologic shows II-XII intact along with gross motor and gross sensation intact. Gait is not tested. Psychiatric showed him to be awake, alert and oriented times three with appropriate and affect and conversational. His white count today is 2.1 with a hemoglobin and hematocrit of 9.8 and 31.2 respectively, which is unchanged from yesterday with a platelet count of 179 and stable. Differential shows 72% neutrophils, 18% lymphocytes, 6% monocytes. There are no immature forms or toxic granulosis. Electrolytes are normal with a BUN and creatinine of 24 and 0.99, calcium 7.9 and a glucose of 108. There are no blood gases on him today. There are no new serologies on him. His chest x-ray again shows the right mid field infiltrate. There is still a small air space of approximately 2 mm laterally. He looks as though he has a little bit more subcutaneous emphysema today than he did yesterday. Costophrenic angles are sharp. He is not on any antibiotics other than the Nystatin swish and swallow. IMPRESSION: 1. Indolent inflammatory pneumonitis of unknown cause. 2. Hypertension. 3. Atrial fibrillation. 4. Celiac sprue. 5. History of prostate cancer. 6. Prior bird and animal exposure. 7. Postoperative day #4 status post wedge resection, final pathology pending. 8. Leukopenia, of unknown significance PLAN AND DISCUSSION: I will remove his chest tube from suction today. If he starts to develop more subcutaneous emphysema, or with a continued air leak, I will put it back to suction and increase it to 40 to see if I can get the lung to the chest wall. The lung is very noncompliant secondary to the underlying pneumonitis infiltrative process. We are still waiting pathology results and hopefully, they will be back tomorrow or the next day.
[2016-10-27] MEDS: PERCOCET 5MG/325MG TAB PO PRN ×2 (07:59→12:03)
[2016-10-27] MEDS: MOM 30ML SUSPENSION UDC PO SCH ×2 (09:00→09:04)
[2016-10-27] MEDS: PANTOPRAZOLE 40MG TAB (PROTONIX) PO SCH (09:02)
[2016-10-27] MEDS: DIGOXIN 0.25 MG TAB PO SCH (09:03)
[2016-10-27] MEDS: VITAMIN D 1,000 INTERNATIONAL UNITS TABLET PO SCH (09:03)
[2016-10-27] MEDS: LACTOBACILLUS ACIDOPHILUS CAP (BACID) PO SCH ×2 (09:03→21:08)
[2016-10-27] MEDS: FERROUS SULFATE 325MG TAB PO SCH (09:04)
[2016-10-27] MEDS: DOCUSATE SODIUM 100 MG CAP PO SCH ×2 (09:04→21:10)
[2016-10-27] MEDS: APIXABAN 5 MG TAB (ELIQUIS) PO SCH ×2 (09:04→21:09)
[2016-10-27] MEDS: OCUVITE 1 TAB PO SCH ×2 (09:04→21:08)
[2016-10-27] MEDS: HEPARIN SOD (PORCINE) 5000 UNITS/ML VIAL SC SCH (09:04)
[2016-10-27] MEDS: NYSTATIN 500,000 U/5 ML SUSP UDC PO SCH ×4 (09:05→21:10)
[2016-10-27] MEDS: METOPROLOL TART 25 MG TABLET PO SCH ×2 (09:05→21:09)
--- NOTE | 2016-10-27 10:46 | REP ---
CHEST, TWO VIEWS: HISTORY: Wedge resection. COMPARISON: 10/26/2016 Parenchymal densities are present in the right lower lobes slightly increased compared to previous study. Linear densities are present in the left lower lobe consistent with atelectasis or scar. A chest tube is present in the right hemithorax. A small pneumothorax is present that is slightly increased in size compared to the previous study. The heart is normal in size. The pulmonary vasculature is normal in appearance. IMPRESSION: 1. Right lower lobe parenchymal densities consistent with atelectasis or infiltrate increased compared to the previous study. 2. Small right pneumothorax, slightly increased compared to the previous study. Signed by Jeison Alex MD 10/27/2016 10:54 A
--- NOTE | 2016-10-27 14:47 | IPN ---
DATE: 10/27/2016 This is now the fifth postoperative day for Mr. Sanches. He is in the progressive care unit (PCU) and he is doing quite well. His pain is being well controlled and he is breathing well. His final pathology still was not back, but I did speak with Dr. Hebert of pathology today and this is probably going to be some type of organizing pneumonia. [facility] has called for more history and they have contacted Dr. Watts. His vital signs show a maximum temperature (t-max) of 98.8 with a heart rate that ranges between 82 and 115 in atrial fibrillation with a respiratory rate of 18 to 24 without the use of accessory muscles, who is 97 to 94% saturated on room air. His blood pressure is ranging between 111/64 to 129/68. His intake and output over the past 24 hours has been recorded as 1750 in and 1610 out for a positivity of 140 mL. He has put out 45 mL from the chest tube. He still has a very small air leak with a forceful cough. His weight today is 97.5 kg compared to 99 kg yesterday. PHYSICAL EXAMINATION: LUNGS: His lungs show inspiratory rales on both sides with the right greater than the left. Percussion note is full to the diaphragm. CARDIAC EXAM: Without murmurs, clicks, gallops or rubs. I cannot feel his point of maximum impulse (PMI). He has an irregular rate and rhythm. S1, S2 are normal. ABDOMEN: Soft, nontender. Bowel sounds positive. There is no hepatomegaly. No costovertebral angle tenderness. EXTREMITIES: Show no pretibial edema. No calf tenderness. No differential swelling of the upper extremities. SKIN: Warm, dry and perfused without cyanosis or mottling, including that of the nail beds and knees. NECK: Supple. There is no jugular venous distention. No subcutaneous emphysema. Trachea is midline. MOUTH: Shows his mucous membranes to be pink and moist. Lips and commissures without lesions. There is no longer any thrush. He continues on nystatin swish and swallow. EYES: Show his pupils to be equal and reactive. Extraocular motion intact. Sclerae anicteric. NEUROLOGIC: Shows II through XII intact with gross motor and gross sensation intact. Gait is not tested. PSYCHIATRIC: Shows him to be awake and alert, oriented times three with appropriate mood and affect and conversational. His white count today is 2.2 with a hemoglobin and hematocrit of 10.3 and 31.9, essentially unchanged from yesterday. Platelet count is 177 with a differential that shows 75% neutrophils, 15% lymphocytes, 6% monocytes. There are no immature forms. No toxic granulations. Electrolytes are normal with a BUN and creatinine of 22 and 1.0, glucose of 104 and a calcium 7.9. There are no blood gases on him today. THUAN screen is still pending. His chest x-ray today shows the lung a bit more from the chest wall at 5 mm. Yesterday it was 3 mm. The subcutaneous emphysema however is much dissipated. Chest tube is still in good place. Costophrenic angles are sharp. He still has an infiltrative pattern in the mid lung butler. IMPRESSION: 1. Indolent inflammatory pneumonitis of unknown cause. 2. Hypertension. 3. Atrial fibrillation. 4. Celiac sprue. 5. History of prostate cancer. 6. Prior bird and animal exposure. 7. Postoperative day #5 status post wedge resection, final pathology pending. 8. Leukopenia, of unknown significance PLAN AND DISCUSSION: I am going to clamp his chest tube today. I have asked the nurse to watch him carefully should he develop more subcutaneous emphysema or shortness of breath. We still await the final pathology.
[2016-10-27 16:32] LABS: ALBUMIN 2.2 GM/DL (3.2-5.2); ALBUMIN/GLOBULIN RATIO 0.65 (1.00-1.93); ALKALINE PHOSPHATASE 729 U/L (45-117); ALT/SGPT 109 U/L (12-78); AST/SGOT 175 U/L (15-37); BILIRUBIN,DIRECT 0.6 MG/DL (0.0-0.2); BILIRUBIN,TOTAL 0.9 MG/DL (0.2-1.0); TOTAL PROTEIN 5.6 GM/DL (6.4-8.2)
--- NOTE | 2016-10-27 19:51 | IPNPDOC ---
Subjective Date Seen The patient was seen on 10/27/16. Subjective Chief Complaint/HPI The patient is a 71-year-old male admitted with a reason for visit of Atrial Fib With Rvr. Events since last encounter pt seen and examined, feels well, no overnight events, Pulmonary: Denies: Dyspnea, Cough Cardiovascular: Denies: Chest Pain, Palpitations, Orthopnea, Paroxysmal Noc. Dyspnea, Lt Headedness Objective Physical Examination General Exam: Positive: Alert, Cooperative, No Acute Distress Eye Exam: Positive: PERRLA, Conjunctiva & lids normal, EOMI, Negative: Sclera icteric ENT Exam: Positive: Atraumatic, Mucous membr. moist/pink, Pharynx Normal Neck Exam: Positive: Supple, Negative: JVD, thyromegaly Chest Exam: Positive: Normal air movement, Other (chest tube in place) Heart Exam: Positive: Irregular Rhythm, Normal S1, Normal S2 Telemetry: Positive: Atrial fibrillation Abdomen Exam: Positive: Normal bowel sounds, Soft, Negative: Tenderness, Hepatospenomegaly Extremity Exam: Positive: Normal pulses, Negative: Clubbing, Cyanosis, Edema Skin Exam: Positive: Nl turgor and temperature, Negative: Rash, Breakdown Assessment /Plan Problems (1) Abnormal CT scan of lung Status: Acute Problem Text: * with spiculated nodules, mediastinal lymph nodes and patchy consolidations * differential includes infection , inflammation or metastatic malignancy * had lung biopsy shows chronic interstitial inflammation. * s/p another biopsy with dr reece, with chest tube in place, low output overnight * maybe removed soon (2) Elevated liver enzymes Status: Acute Response to Treatment: Improving Problem Specific Plan: Monitor Clinically Problem Text: * unknown etiology * hepatitis panel negative * autoimmune work up pending (3) Pancytopenia Status: Acute Response to Treatment: Improving Problem Specific Plan: Monitor Clinically Problem Text: * pancytopenia unknown etiology (4) Fever Status: Resolved Problem Text: no fevers overnight Dr souza saw pt sent out serology testing for histoplasmosis discontinued antibiotics for now s/p lung biopsy by dr reece Patient has leukopenia slightly worse (5) Postobstructive pneumonia Status: Resolved Problem Text: patient finished 7days of zosyn and 5 days of azithromycin (6) Atrial fibrillation with RVR Status: Acute Problem Text: still in afib rate is being controlled with digoxin and metoprolol. started on eliquis. (7) Hypertension Status: Chronic (8) Iron deficiency anemia Status: Chronic (9) Celiac disease Status: Chronic (10) History of prostate cancer Status: Chronic Problem Text: had radical prostatectomy in 2013. Plan/VTE VTE Prophylaxis Ordered?: Yes VS, I&O, 24H, Fishbone Vital Signs/I&O Vital Signs Date Time Temp Pulse Resp B/P (MAP) Pulse Ox O2 Delivery O2 Flow Rate FiO2 10/27/16 16:00 98.6 97 20 139/72 (94) 94 Room Air 10/24/16 16:00 2.0 I&O- Last 24 Hours up to 6 AM 10/27/16 06:00 Intake Total 1600 ml Output Total 1415 ml Balance 185 ml Laboratory Data 24H LABS Laboratory Tests 2 10/27/16 04:18: White Blood Count 2.2L, Red Blood Count 3.80L, Hemoglobin 10.3L, Hematocrit 31.9L, Mean Corpuscular Volume 83.8, Mean Corpuscular Hemoglobin 27.0, Mean Corpuscular Hemoglobin Concent 32.2, Red Cell Distribution Width 15.6H, Platelet Count 177, Neutrophils (%) (Auto) 75.4H, Lymphocytes (%) (Auto) 15.0L, Monocytes (%) (Auto) 6.2H, Eosinophils (%) (Auto) 0.5, Basophils (%) (Auto) 0.3 , Neutrophils # (Auto) 1.7L, Lymphocytes # (Auto) 0.3L, Monocytes # (Auto) 0.1, Eosinophils # (Auto) 0.0, Basophils # (Auto) 0.0, Large Unclassified Cells % 2.6 , Large Unclassified Cells # 0.1, Anion Gap 7L, Glomerular Filtration Rate > 60.0, Blood Urea Nitrogen 22H, Creatinine 1.00, Sodium Level 136, Potassium Level 4.1, Chloride Level 102, Carbon Dioxide Level 27, Calcium Level 7.9L, Aspartate Amino Transf (AST/SGOT) 175H, Alanine Aminotransferase (ALT/SGPT) 109H , Alkaline Phosphatase 729H, Total Bilirubin 0.9, Direct Bilirubin 0.6H, C- Reactive Protein, Quantitative 2.47H, Total Protein 5.6L, Albumin 2.2L, Albumin/ Globulin Ratio 0.65L CBC/BMP Laboratory Tests 10/27/16 04:18 Red Blood Count 3.80 L, Mean Corpuscular Volume 83.8, Mean Corpuscular Hemoglobin 27.0, Mean Corpuscular Hemoglobin Concent 32.2, Red Cell Distribution Width 15.6 H, Neutrophils (%) (Auto) 75.4 H, Lymphocytes (%) (Auto ) 15.0 L, Monocytes (%) (Auto) 6.2 H, Eosinophils (%) (Auto) 0.5, Basophils (%) (Auto) 0.3, Neutrophils # (Auto) 1.7 L, Lymphocytes # (Auto) 0.3 L, Monocytes # (Auto) 0.1, Eosinophils # (Auto) 0.0, Basophils # (Auto) 0.0, Calcium Level 7.9 L Microbiology Microbiology 10/21/16 Blood Culture - Final, Complete NO GROWTH AFTER 5 DAYS 10/20/16 Blood Culture - Final, Complete NO GROWTH AFTER 5 DAYS 10/20/16 Fungal Smear, Received Pending 10/20/16 Blood Fungal Culture, Received Pending 10/22/16 Acid Fast Stain, Received Pending 10/22/16 Mycobacterial Culture, Received Pending 10/22/16 Fungal Smear, Received Pending 10/22/16 Fungal Culture, Received Pending 10/20/16 Fungal Smear, Received Pending 10/20/16 Fungal Culture, Received Pending 10/22/16 Bacterial Culture - Final, Complete 10/22/16 Anaerobic Culture - Final, Complete HILLARY BURLESON DO October 27, 2016 19:51
[2016-10-27] MEDS: IBUPROFEN 600 MG TAB PO PRN (21:10)
[2016-10-27] MEDS: ALPRAZolam 0.25 MG TAB PO PRN (21:49)
[2016-10-28] VITALS: BP 118/62
[2016-10-28] MEDS: LEVALBUTEROL 1.25 MG/0.5 ML CONCENTRATE NEB NEB SCH ×4 (01:34→20:23)
[2016-10-28 04:00] VITALS: BP 110/63
[2016-10-28 06:07] LABS: BASO % 0.3 % (0.0-1.0); EOS % 0.1 % (0.0-3.0); LARGE UNSTAINED CELL # 0.1 K/mm3 (0.0-0.4); LARGE UNSTAINED CELL % 2.2 % (0.0-4.0); LYMPH # 0.3 K/mm3 (1.5-4.5); LYMPH % 10.4 % (24.0-44.0); MEAN CORPUSCULAR HEMOGLOBIN 27.3 pg (27.0-33.0); MEAN CORPUSCULAR HGB CONC 32.1 g/dl (32.0-36.5); MONO # 0.1 K/mm3 (0.0-0.8); MONO % 4.9 % (0.0-5.0); NEUTROPHILS # 2.1 K/mm3 (1.8-7.7); NEUTROPHILS % 82.1 % (36.0-66.0); PLATELET COUNT, AUTOMATED 169 k/mm3 (150-450); RED CELL DISTRIBUTION WIDTH 15.8 % (11.5-14.5); WHITE BLOOD COUNT 2.5 K/mm3 (4.0-10.0)
[2016-10-28] MEDS: SLF 3 ML SYR IV SCH ×3 (06:20→21:16)
[2016-10-28 06:29] LABS: ALBUMIN/GLOBULIN RATIO 0.57 (1.00-1.93); ALKALINE PHOSPHATASE 684 U/L (45-117); ALT/SGPT 91 U/L (12-78); ANION GAP 9 MEQ/L (8-16); AST/SGOT 159 U/L (15-37); BILIRUBIN,TOTAL 0.9 MG/DL (0.2-1.0); BLOOD UREA NITROGEN 21 MG/DL (7-18); CALCIUM LEVEL 7.7 MG/DL (8.8-10.2); CARBON DIOXIDE LEVEL 24 MEQ/L (21-32); CHLORIDE LEVEL 103 MEQ/L (98-107); CREATININE FOR GFR 0.84 MG/DL (0.70-1.30); GLOMERULAR FILTRATION RATE > 60.0 (>42); GLUCOSE, FASTING 107 MG/DL (83-110); POTASSIUM SERUM 3.9 MEQ/L (3.5-5.1); SODIUM LEVEL 136 MEQ/L (136-145); TOTAL PROTEIN 5.5 GM/DL (6.4-8.2)
[2016-10-28 08:00] VITALS: BP 103/72
[2016-10-28] MEDS: MOM 30ML SUSPENSION UDC PO SCH (09:39)
[2016-10-28] MEDS: LACTOBACILLUS ACIDOPHILUS CAP (BACID) PO SCH ×2 (09:40→21:15)
[2016-10-28] MEDS: VITAMIN D 1,000 INTERNATIONAL UNITS TABLET PO SCH (09:40)
[2016-10-28] MEDS: PANTOPRAZOLE 40MG TAB (PROTONIX) PO SCH (09:40)
[2016-10-28] MEDS: OCUVITE 1 TAB PO SCH ×2 (09:40→21:15)
[2016-10-28] MEDS: NYSTATIN 500,000 U/5 ML SUSP UDC PO SCH ×4 (09:40→21:15)
[2016-10-28] MEDS: APIXABAN 5 MG TAB (ELIQUIS) PO SCH ×2 (09:41→21:15)
[2016-10-28] MEDS: DOCUSATE SODIUM 100 MG CAP PO SCH ×2 (09:41→21:16)
[2016-10-28] MEDS: DIGOXIN 0.25 MG TAB PO SCH (09:41)
[2016-10-28] MEDS: FERROUS SULFATE 325MG TAB PO SCH (09:41)
[2016-10-28] MEDS: METOPROLOL TART 25 MG TABLET PO SCH ×2 (09:41→21:14)
--- NOTE | 2016-10-28 09:43 | REP ---
CHEST, ONE VIEW: HISTORY: Crepitus. COMPARISON: 10/27/2016. A large amount of subcutaneous emphysema is present overlying the right hemithorax. Parenchymal density is present in the right lower lobe that appears unchanged compared to the previous study. Linear densities are present in the left lower lobe consistent with atelectasis or scar. The heart is normal in size. A chest tube is present in the right hemithorax. A small right pneumothorax is present that appears unchanged compared to the previous study. IMPRESSION: 1. There is a large amount of subcutaneous emphysema overlying the right hemithorax. 2. Right lower lobe parenchymal density unchanged compared to the previous study. 3. Small right pneumothorax unchanged compared to the previous study. Signed by Jeison Alex MD 10/28/2016 09:59 A
--- NOTE | 2016-10-28 10:44 | IPN ---
DATE: 10/28/2016 Yesterday, Mr. Sanches had a very small air leak and I decided to clamp the tube to see if it was actually real. This morning he suddenly blew up with subcutaneous emphysema. A chest x-ray was taken, which confirmed that and the status of the lung and the chest tube was unclamped. At no time did he get short of breath or become hypotensive. His pain is being well controlled today at the chest tube insertion site and the incision sites. His vital signs show a maximum temperature (t-max) of 102 last night. His heart rate ranges between 87 and 76 in atrial fibrillation with a respiratory rate of 18 to 20 without the use of accessory muscles who is 99% saturated on room air. Blood pressure is ranging between 118/62 to 103/72. His intake and output over the past 24 hours has been recorded as 750 in and 280 out for a positivity of 870 mL. His chest tube was clamped all night and therefore only put out 5 mL. Weight today is 98 kg compared to 97.5 kg yesterday. PHYSICAL EXAMINATION: He has massive subcutaneous emphysema over the right chest. His lungs show the crackles of subcutaneous emphysema. He is hyperresonant to percussion. CARDIAC EXAM: Without murmurs, clicks, gallops or rubs. I cannot feel his point of maximum impulse (PMI). S1, S2 are normal. ABDOMEN: Soft, nontender. Bowel sounds positive. There is no hepatomegaly. No costovertebral angle tenderness. EXTREMITIES: Show no pretibial edema. No calf tenderness. No differential swelling of the upper extremities. SKIN: Warm, dry and perfused without cyanosis or mottling, including that of the nail beds and knees. NECK: Supple. There is no jugular venous distention. No subcutaneous emphysema. Trachea is midline. MOUTH: Shows his mucous membranes to be pink and moist. Lips and commissures without lesions. There is no thrush. EYES: Show his pupils to be equal and reactive. Extraocular motion intact. Sclerae anicteric. NEUROLOGIC: Shows II through XII intact with gross motor and gross sensation intact. Gait is not tested. PSYCHIATRIC: Shows him to be awake and alert, oriented times three with appropriate mood and affect and conversational. His white count today is 2.5 with a hemoglobin and hematocrit of 11.0 and 34.2, respectively. Platelet count is 169. His differential shows 82% neutrophils, 10% lymphocytes, 4% monocytes. There are no immature forms. No toxic granulations. Electrolytes are normal with a BUN and creatinine of 21 and 0.84, calcium 7.7, and a glucose of 107. Corresponding albumin is 2.0. His chest x-ray shows massive subcutaneous emphysema. I cannot tell if the lung is expanded to the chest wall or not due to subcutaneous emphysema. Costophrenic angles are sharp. IMPRESSION: 1. Indolent inflammatory pneumonitis of unknown cause, pathology is still pending. 2. Hypertension. 3. Atrial fibrillation. 4. Celiac sprue. 5. History of prostate cancer. 6. Prior bird and animal exposure. 7. Postoperative day #6 status post wedge resection. 8. Leukopenia, of unknown significance. 9. Alveolar pleural fistula. PLAN AND DISCUSSION: I will replace his chest tube to -40 cm of suction. We will just have to wait the air leak out. We are still awaiting final pathology, which is now down in [place] in pulmonary pathology.
--- NOTE | 2016-10-28 12:09 | REP ---
CHEST, TWO VIEWS: Two views of the chest are performed and compared to a prior study earlier today as well as 10/27/2016. Right chest tube remains in place. There is a small right pneumothorax unchanged. There is extensive subcutaneous emphysema in right chest wall. Bibasilar parenchymal opacities appear unchanged. Pneumomediastinum is also noted. IMPRESSION: Right chest tube. Tiny right pneumothorax. Significant subcutaneous emphysema in the right chest wall. Pneumomediastinum is also noted. Signed by Joe Gutierrez MD 10/28/2016 07:46 P
[2016-10-28 12:15] VITALS: BP 110/67
--- NOTE | 2016-10-28 13:36 | IPN ---
DATE: 10/28/2016 SUBJECTIVE: Patient seen and examined at the bedside. Chart has been reviewed. This morning, patient complains of slight shortness of breath. His chest tube was clamped yesterday. He currently has subcutaneous emphysema noted on the right anterior chest anteriorly. OBJECTIVE: PHYSICAL EXAMINATION: Vitals: Temperature 96.5, pulse 87, respiratory rate 20, blood pressure 103/72, 99% on 2 liters nasal cannula. Patient had T-max of 102.0 yesterday at 2000. Generally, he is awake, alert, oriented times three. He has subcutaneous emphysema noted on the right anterior chest. Lungs are diminished with crackles hyperresonant. Diminished breath sounds. Heart: S1, S2 sinus rhythm. Abdomen: Soft, nontender, nondistended. Extremities: No pitting edema. Skin: Warm, dry, well perfused, pink in color. LABORATORY DATA: White count 2.5, hemoglobin 11, hematocrit 34, platelet count 169. Sodium 136, potassium 3.9, chloride 103, bicarbonate 24, BUN 21, creatinine 0.84, glucose 107. AST 159, ALT 91, alkaline phosphatase 684. Total protein 5.5, albumin is 2. ASSESSMENT AND PLAN: This is a 71-year-old male with history of prostatectomy, robotic-assisted, bilateral pelvic lymph node dissection colonoscopy, non-bleeding hemorrhoids and polyp, tubular adenoma, tubulovillous adenoma, hypertension, celiac disease compliant with diet , TURP procedure by Dr. Christian, hypertension, iron deficiency anemia, was in his usual state of health, presented to the emergency room with 2 week history of worsening shortness of breath with a 20 pound weight loss in the past 2 months, as found to have multiple pulmonary nodules and right hilar adenopathy. Needle biopsy showed inflammatory changes. No malignancy and with recurrent fevers with a T-max of 103.4 and chills. Biopsy of the lung 10/14 shows chronic inflammatory changes. No malignancy identified. Pathology of the lung on 10/[address] Dada Ac still has pending results. Since chest tube has been placed, patient has developed subcutaneous emphysema. CURRENT ISSUES: 1. Right-sided subcutaneous emphysema management per thoracic surgery. Patient will be placed on -40 cm suction. Still awaiting results of pathology from 10/23. 2. Recurrent fever. We discussed this with Dr. Watts. Patient has completed full course of antibiotics. He has spiculated nodules with mediastinal lymph nodes and patchy consolidations. Differential includes infection, metastatic malignancy, inflammation. Lung biopsy shows chronic interstitial inflammation. Repeat biopsy with Dr. Ac is not available at this time from 10/23. 3. Abnormal liver function tests, hepatitis panel negative. Autoimmune workup is pending. 4. Pancytopenia. No acute indication for blood transfusions. 5. Postobstructive pneumonia. Patient completed 7 days of Zosyn, 5 days of azithromycin. 6. Atrial fibrillation with rapid ventricular rate (RVR), rate controlled with Digoxin and metoprolol. Currently on Eliquis for anticoagulation for prophylaxis for cerebrovascular accident (CVA). 7. Hypertension, chronic, stable. 8. Iron deficiency anemia, chronic. 9. Celiac disease. 10. Chronic history of prostate cancer, status post radical prostatectomy in 2013. MTDD
[2016-10-28 16:00] VITALS: BP 155/67
[2016-10-28 20:00] VITALS: BP 142/80
[2016-10-28] MEDS: IBUPROFEN 600 MG TAB PO PRN (21:15)
--- NOTE | 2016-10-28 22:34 | IPN ---
DATE: 10/28/2016 Mr. Sanches is anxious to get better and to be able to ambulate. His chest tube was clamped today. He has developed subcutaneous emphysema on the right upper chest and significant hoarseness. He has a minimal cough, minimal shortness of breath and does not complain much of pain. But he has had recurrent fever for the past 24 hours, yesterday 102, today 102.7. He has no nausea, vomiting or diarrhea. He had four bowel movements today that were soft, but his states that he has had these episodes previously because of celiac disease. On physical exam, temperature is 102.5, pulse 113, respirations 18, blood pressure 142/80, oxygen saturation 93% on 2 liters nasal cannula. Heart: Normal S1, S2 with no murmurs, rubs or gallops. Lungs are clear. No wheezes, rales or rhonchi. Abdomen is soft, obese, nontender. Extremities: Trace edema. Chest wall has significant subcutaneous emphysema on the right side with crepitus. Chest tube posteriorly right lower lung in place with some bloody drainage. LABORATORY DATA: White count is 2.5, hemoglobin 11, hematocrit 34.2, platelets 169, 82% neutrophils, 10% lymphocytes, 5% monocytes. Sodium 136, potassium 3.9, chloride 103, bicarbonate 24, BUN 21, creatinine 0.84, glucose 107, calcium 7.7, AST 159, ALT 91, alkaline phosphatase 684, which has increased from 102 on admission. Blood cultures have been drawn today on 10/28/2016, two sets are pending. Cultures from the right lung, wedge resection, aerobic and anaerobic cultures were negative. AFB stain/cultures, fungal smear and culture are still pending. Chest x-ray shows a large amount of subcutaneous emphysema overlying the right hemithorax, right lower lobe parenchymal density not changed and small right pneumothorax unchanged from previous study. IMPRESSION: Multiple pulmonary infiltrates status post treatment for community-acquired pneumonia with a total of 10 days of antibiotic combination of Zosyn, Zithromax and Rocephin without improvement. Repeat chest CT shows a new developing infiltrate and resolving others and therefore, a wedge resection was ordered. Pathology from 10/23/2016 showed only acute and organizing fibrinous pneumonia. No granuloma. Cryptococcus antigen, Histoplasma antigen were negative. QuantiFERON TB Gold was indeterminate. Abnormal liver function tests with obstructive picture. Imaging study of the liver only showed diffuse gallbladder wall thickening but no gallstones, but liver function tests remain elevated. Recurrent fever over the past 24 hours. Blood cultures have been obtained. The patient had been afebrile for at least 5 days. Concern whether this could be a nosocomial infection versus Clostridium difficile, although the patient states his bowel movements were just soft and not diarrheal , with no mucus, nonbloody and this happens to him with his celiac disease. Alveolar pleural fistula with subcutaneous emphysema. The patient does not have too many symptoms from that. I have discussed the case with Dr. Jorge Baltazar who has now taken the pulmonary service. She will see the patient in the morning. PLAN: THUAN, ANCA, rheumatoid factor was also ordered for further workup of autoimmune diseases. Will discuss the case with Dr. Ac in the morning as well. PAOLA
[2016-10-29] VITALS (7 sets, daily range): BP systolic 105–133; BP diastolic 55–66
[2016-10-29 00:07] LABS: SJOGREN'S ANTI SS-A 7.6 AI (0.0-0.9); SJOGREN'S ANTI SS-B <0.2 AI (0.0-0.9); SOLUBLE LIVER ANTIGEN IgG ABY 1.2 units (0.0-20.0)
[2016-10-29] MEDS: LEVALBUTEROL 1.25 MG/0.5 ML CONCENTRATE NEB NEB SCH ×4 (02:00→20:52)
[2016-10-29] MEDS: SLF 3 ML SYR IV SCH ×3 (04:12→21:13)
[2016-10-29 05:56] LABS: BASO % 0.2 % (0.0-1.0); EOS % 0.2 % (0.0-3.0); LARGE UNSTAINED CELL % 1.3 % (0.0-4.0); LYMPH # 0.3 K/mm3 (1.5-4.5); LYMPH % 9.4 % (24.0-44.0); MEAN CORPUSCULAR HEMOGLOBIN 27.1 pg (27.0-33.0); MEAN CORPUSCULAR HGB CONC 32.6 g/dl (32.0-36.5); MEAN CORPUSCULAR VOLUME 83.2 fl (80.0-96.0); MONO # 0.1 K/mm3 (0.0-0.8); MONO % 2.6 % (0.0-5.0); NEUTROPHILS # 2.2 K/mm3 (1.8-7.7); NEUTROPHILS % 86.3 % (36.0-66.0); PLATELET COUNT, AUTOMATED 163 k/mm3 (150-450); RED CELL DISTRIBUTION WIDTH 15.8 % (11.5-14.5); WHITE BLOOD COUNT 2.6 K/mm3 (4.0-10.0)
[2016-10-29 06:10] LABS: ALBUMIN 1.9 GM/DL (3.2-5.2); ALBUMIN/GLOBULIN RATIO 0.54 (1.00-1.93); ALKALINE PHOSPHATASE 752 U/L (45-117); ALT/SGPT 95 U/L (12-78); ANION GAP 10 MEQ/L (8-16); AST/SGOT 216 U/L (15-37); BILIRUBIN,TOTAL 0.9 MG/DL (0.2-1.0); BLOOD UREA NITROGEN 25 MG/DL (7-18); CALCIUM LEVEL 7.7 MG/DL (8.8-10.2); CARBON DIOXIDE LEVEL 24 MEQ/L (21-32); CHLORIDE LEVEL 102 MEQ/L (98-107); CREATININE FOR GFR 0.93 MG/DL (0.70-1.30); GAMMA GLUTAMYLTRANSPEPTIDASE 600 U/L (15-85); GLOMERULAR FILTRATION RATE > 60.0 (>42); GLUCOSE, FASTING 116 MG/DL (83-110); POTASSIUM SERUM 3.9 MEQ/L (3.5-5.1); SODIUM LEVEL 136 MEQ/L (136-145); TOTAL PROTEIN 5.4 GM/DL (6.4-8.2)
[2016-10-29] MEDS: MOM 30ML SUSPENSION UDC PO SCH (09:00)
[2016-10-29] MEDS: DOCUSATE SODIUM 100 MG CAP PO SCH ×2 (09:00→21:13)
[2016-10-29] MEDS: NYSTATIN 500,000 U/5 ML SUSP UDC PO SCH ×4 (09:11→21:12)
--- NOTE | 2016-10-29 09:11 | REP ---
CHEST, TWO VIEWS: HISTORY: Wedge resection. COMPARISON: 10/28/2016. Diffuse subcutaneous emphysema is present that is increased compared to the previous study. Parenchymal density is present in the right lower lobe that appears unchanged compared to the previous study. A chest tube is present in the right hemithorax. There is no definite pneumothorax. IMPRESSION: 1. There is diffuse subcutaneous emphysema that is increased compared to the previous study. 2. There is parenchymal density in the right lower lobe that appears unchanged compared to the previous study. There is no definite pneumothorax. Signed by Jeison Alex MD 10/29/2016 09:41 A
[2016-10-29] MEDS: LACTOBACILLUS ACIDOPHILUS CAP (BACID) PO SCH ×2 (09:12→21:12)
[2016-10-29] MEDS: VITAMIN D 1,000 INTERNATIONAL UNITS TABLET PO SCH (09:12)
[2016-10-29] MEDS: OCUVITE 1 TAB PO SCH ×2 (09:12→21:12)
[2016-10-29] MEDS: DIGOXIN 0.25 MG TAB PO SCH (09:13)
[2016-10-29] MEDS: APIXABAN 5 MG TAB (ELIQUIS) PO SCH ×2 (09:13→21:12)
[2016-10-29] MEDS: METOPROLOL TART 25 MG TABLET PO SCH ×2 (09:13→21:12)
[2016-10-29] MEDS: FERROUS SULFATE 325MG TAB PO SCH (09:14)
[2016-10-29] MEDS: PANTOPRAZOLE 40MG TAB (PROTONIX) PO SCH (09:14)
--- NOTE | 2016-10-29 09:43 | IPN ---
DATE: 10/29/2016 Patient seen and examined at the bedside. Chart has been reviewed. Maximum temperature (t-max) of 102.5 at 2000 hours yesterday. 101.2 last night. Current temperature 96.9. The patient states that his breathing is improved once the chest tube has been unclamped and back to suction. No chest pain, pressure or tightness, palpitations, lightheadedness, near syncopal episode. Denies any cough. No chills. No dysuria, urgency, frequency. The patient had three loose bowel movements yesterday, which were soft. Vitals: Maximum temperature (t-max) 102.5, current temperature 96.9, pulse 76 and irregular, respiratory rate 18,blood pressure 118/55, 95% on 2 liters nasal cannula. GENERAL: The patient is awake, alert, oriented times three. Hard of hearing and needs a hearing aid placed. Subcutaneous emphysema is still palpated on the right anterior chest. Chest tube to suction at the right chest. LUNGS: Diminished. No wheezing or rales. Chest wall with subcutaneous emphysema in the right anterior chest with some crepitus. Chest tube in the right lower lung with bloody drainage. Input and output: Input 1600 and output 860. Positive 740. Current weight is 98 kg. HEART: S1, S2. Irregularly irregular. ABDOMEN: Soft, nontender, nondistended. Positive bowel sounds times four quadrants. EXTREMITIES: Trace edema. LABORATORY DATA: White count 2.6, hemoglobin 10.9, hematocrit 33, platelet count 163. Sodium 136, potassium 3.9, chloride 102, bicarbonate 24, BUN 25, creatinine 0.93, glucose 116. GGT 600, AST 216, ALT 95, alkaline phosphatase 752, albumin 1.9. THUAN is positive. Anti SSA antibody 7.6, double stranded DNA less than 1, antimitochondrial antibody 9.5, anti-smooth muscle antibody . ASSESSMENT AND PLAN: This is a 71-year-old male with history of celiac disease, compliant with diet, prostatectomy, robotic-assisted, bilateral pelvic lymph node dissection, nonbleeding hemorrhoids and polyps, tubular adenoma, tubulovillous adenoma, iron deficiency anemia, hypertension, complained of a 2-week history of shortness of breath, 20 pound weight loss and was found to have multiple pulmonary nodules and right hilar adenopathy. Needle biopsy showed inflammatory changes. No malignancy with recurrent fevers. T-max of 102.5, still with recurrent fevers. Open lung biopsy on 10/23/2016 sent to [facility] and showed acute and organizing fibrinous pneumonia in the right lung consolidation. The patient had completed 10-days of Zosyn, azithromycin and Rocephin without improvement. Histoplasma and Cryptococcus antigens were negative. Quantiferon TB was indeterminate. The patient had abnormal liver function tests with ultrasound showing gallbladder wall thickening without gallstones with recurrent fevers. 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 Shortness of breath is improved once chest tube has been placed back to suction. Management per Dr. Dada Ac, thoracic surgery. 2. Multiple pulmonary nodules with organizing inflammatory pneumonia. Pathology has been sent to [facility]. Currently with acute organizing fibrinous pneumonia. Bookkeeping Assistant, Dr. Baltazar, has been consulted. Infectious disease specialist has no new recommendations for antibiotics. He continues to have recurrent fevers. Workup with persistent leukopenia. 3. Gallbladder wall thickening with no gallstones with abnormal liver function tests. History of celiac disease. Still tolerating his diet well. No gallstones, common bile duct is in upper limits of normal diameter of 7 mm. Asymptomatic at this time. No plans for further intervention. 4. Pancytopenia, stable. 5. Postobstructive pneumonia. Completed 10 days of antibiotic. 6. Atrial fibrillation with rapid ventricular rate. Rate controlled with digoxin and metoprolol. Currently on Eliquis. 7. Hypertension, chronic. 8. Iron deficiency anemia, chronic. 9. History of prostate cancer, status post prostatectomy, stable.
--- NOTE | 2016-10-29 11:12 | REP ---
REASON: Possible bronchopleural fistula. COMPARISON: Multiple, the latest of which is dated 10/21/2016 a contrast-enhanced exam. There is a small left pleural effusion unchanged from the prior exam and seen in conjunction with pleural thickening. There is no pericardial effusion. The mediastinum and pulmonary marielos are unchanged. The imaged upper abdomen shows retroperitoneal adenopathy and adenopathy in the gastrohepatic ligament status quo. There is no change in the imaged osseous structures. There is a right-sided thoracotomy tube, which has been placed since the last exam. There is extensive subcutaneous emphysema bilaterally, but right greater than left and on the right extending inferiorly to the thoracolumbar fascia. This represents a significant change from the prior exam. Evaluation of the lung butler again shows scattered patchy opacities which are essentially unchanged from 10/21/2016 with some areas of conglomerate density with air bronchograms, also stable. There is a small right apical pneumothorax and a tiny left apical anterior pneumothorax. There is rather extensive pneumomediastinum. All the aforementioned represent a significant change from the prior exam. IMPRESSION: 1. Extensive subcutaneous emphysema with pneumomediastinum and bilateral pneumothoraces as described above. This examination cannot rule out a bronchopleural fistula. 2. Abnormal lung field findings as described above. 3. Adenopathy. 4. Other findings as described above. Signed by Prasanna Steiner DO 10/29/2016 02:58 P
--- NOTE | 2016-10-29 12:37 | IPN ---
DATE: 10/29/2016 Mr. Sanches's subcutaneous emphysema looks to be a little bit better today with regard to his anterior chest wall, although it looks as though it is spread over the right and to the left side today. He is quite frustrated. His vital signs show a maximum temperature (t-max) of 102.5 with a heart rate that ranges between 108 and 76 in atrial fibrillation with a respiratory rate of 18 to 22 without the use of accessory muscles, who is 95% saturated on 2 liters nasal cannula, and his blood pressure is ranging between 111/64 to 118/55. His intake and output over the past 24 hours has been recorded as 1600 in and 860 out for a positivity of 740 mL. He has put out 60 mL from the chest tube and there is still an air leak, albeit small with a forceful coughing. He weighs 96.6 kg today compared to 98 kg yesterday. PHYSICAL EXAMINATION: LUNGS: Show high pitched crackles of subcutaneous emphysema. I do not hear any other adventitious sounds beneath it. Percussion note is hyperresonant on both sides secondary to subcutaneous emphysema. CARDIAC EXAM: Without murmurs, clicks, gallops or rubs. I cannot feel his point of maximum impulse (PMI). S1, S2 are normal. He has an irregular rate and rhythm. ABDOMEN: Soft, nontender. Bowel sounds positive. There is no hepatomegaly. No costovertebral angle tenderness. EXTREMITIES: Show no pretibial edema. No calf tenderness. No differential swelling of the upper extremities. SKIN: Warm, dry and perfused without cyanosis or mottling, including that of the nail beds and knees. NECK: Supple. There is subcutaneous emphysema. Trachea is midline. There is no jugular venous distention (JVD). MOUTH: Shows his mucous membranes to be pink and moist. Lips and commissures without lesions. There is no longer any thrush. EYES: Show his pupils to be equal and reactive. Extraocular motion intact. Sclerae anicteric. NEUROLOGIC: Shows II through XII intact with gross motor and gross sensation intact. Gait is not tested. PSYCHIATRIC: Shows him to be awake and alert, oriented times three with appropriate mood and affect and conversational. His white count today is 2.6 with a hemoglobin and hematocrit of 10.9 and 33.4, respectively. Platelet count is 163. His differential shows 86% neutrophils, 9% lymphocytes, 2% monocytes. There are no immature forms. No toxic granulations. Electrolytes are normal with a BUN and creatinine of 25 and 0.93, glucose is 116 with a calcium 7.7. AST and ALT were slightly increased to 216 and 95 from 159 and 91 yesterday. Albumin is 1.9. His chest x-ray shows a large amount of subcutaneous emphysema, both in the right and the left. However, it does look as if the subcutaneous emphysema on the right lateral chest wall is beginning to dissipate. The lung looks to be fully expanded to the chest wall, although it is hard to see the details beneath the subcutaneous emphysema. Costophrenic angles are sharp. He does have more subcutaneous emphysema on the left side than he did yesterday on the chest x-ray. I did order a chest CT today without contrast. It of course confirms the massive subcutaneous emphysema, but there is only a very small pneumothorax in the cupula. I do not think that he is leaking from that source but rather from the staple lines, which were lower down. Judging the chest x-ray today, his subcutaneous emphysema is starting to dissipate and I am going to hold off placing another tube in him. If he continues to have problems, I will put an anterior chest tube in him to control the air leak. His interstitial process does seem to be a bit better than it was on his 10/21/2016 CT scan. It is still certainly present but looks to be breaking up. Final pathology still is not yet back. He is presently not on any antibiotics other than the nystatin. While we have a feeling that this may be cryptogenic organizing pneumonia, formerly known as BOOP, I am not keen on placing him on any steroids at this point in time. IMPRESSION: 1. Indolent inflammatory pneumonitis of unknown cause, pathology is still pending. 2. Hypertension. 3. Atrial fibrillation. 4. Celiac sprue. 5. History of prostate cancer. 6. Prior bird and animal exposure. 7. Postoperative day #7 status post wedge resection. 8. Leukopenia of unknown significance. 9. Alveolar pleural fistula, continuing. PLAN AND DISCUSSION: I will continue his chest tube to 40 cm of suction. I have already discussed the CAT scan that I obtained this morning. I will monitor his chest x-ray and his physical examination to see if the subcutaneous emphysema is going to dissipate. I am going to hold off placing an anterior tube today.
[2016-10-29] MEDS: ACETAMINOPHEN TAB 650MG DOSE (2X325MG) PO PRN (16:35)
[2016-10-29] MEDS: methylPREDNISolone INJ 125 MG/2 ML VIAL (J2930) IV SCH (21:12)
[2016-10-29] MEDS: IBUPROFEN 600 MG TAB PO PRN (21:13)
--- NOTE | 2016-10-29 21:38 | IPN ---
DATE: 10/29/2016 I was re-asked to visit Mr. Sanches who is seen in consultation by Dr. Morgan at the beginning of his hospitalization. Mr. Sanches was admitted with atrial fibrillation, rapid ventricular response (RVR), was found to have an abnormal chest CT, had undergone multiple chest CTs which showed similar abnormalities with scattered infiltrate, bronchiectasis and some adenopathy. I went back to 2013 reviewing his images and he had retroperitoneal adenopathy and very small pulmonary nodules at that point in time. During his hospitalization, he has had extensive workup including a wedge biopsy showing acute fibrinous organizing pneumonia with no evidence of malignancy. He states he was having shortness of breath for quite some time. He has no history of inflammatory arthritis or rash. He had no difficulty swallowing until he had significant subcutaneous emphysema from his wedge biopsy and pneumomediastinum. He had been spiking fevers and has been on multiple courses of antibiotics. He states at home every time he would take Tylenol he would spike a fever. He is on multiple Tylenol medications in the hospital. I explained to him that would be very strange as Tylenol is typically an antipyretic. Although pathology showed acute fibrinous and organizing pneumonia without evidence of malignancy, there is some possible concern for lymphoid aggregates. Therefore this is being currently being analyzed for the possibility of lymphoma. Today, the patient feels well except for some shortness breath. He denies pain. Temperature is 101.1. Last fever was 101.2 last evening. Respiratory rate is 22, blood pressure is 130/66, oxygen is 93% on 2 liters with a pulse of 87. General: The patient is lying in bed. Speech sounds nasal. He is in no respiratory distress. HEENT: Sclerae clear and anicteric. Pupils equal, round and reactive to light. Mucous membranes are moist without lesions. Tongue is midline. Cardiac: Irregular S1-S2 without audible murmur, rub or gallop. Point of maximal impulse (PMI) is difficult to palpate. Pulmonary: Decreased breath sounds throughout both lung butler; has some crackles because of the subcutaneous emphysema. I do not hear any rhonchi. I do not hear any expiratory wheeze. No dullness to percussion. She has a right-sided chest tube. Abdomen: Soft, nontender, nondistended. No hepatosplenomegaly. No masses or hernia. Extremities: No pretibial edema, calf tenderness. No swelling of the upper and lower extremities. Skin is without cyanosis or rash. Neck is supple. There is some subcutaneous emphysema, especially on the right. Jugular venous pressure is not elevated. Carotid upstrokes fairly brisk without bruit. Neurologic: No unilateral weakness, seizure activity or tremor. LABS: Laboratory evaluation shows a leukopenia with a white blood cell count of 2.6, hemoglobin of 10.0, hematocrit of 33.4, platelet count of 163 and neutrophilia of 86.3. Sodium is 136, potassium 3.9, chloride 102, bicarb of 24, BUN of 25 with a creatinine of 0.93, fasting glucose is 116, calcium is 7.7, AST is 216, ALT is 95, alkaline phosphatase is 752. Total protein is 4.5, albumin is down to 1.9 this a.m. as mentioned above. Immunologic studies show a positive THUAN screen and a positive SS-A/Ro antibody. SSB/La antibody is normal. Garcia antibody is normal. MUSIC MINISTER antibody is normal. Anti double-stranded DNA is normal. Antimitochondrial antibody is normal. Soluble liver antigen is within normal limits. As mentioned above, PET imaging was reviewed from 09/01/2013. This showed that the only hypermetabolic lesion was a retroperitoneal node. CT scan of the chest was reviewed from 08/11/2013; also had retroperitoneal adenopathy and pulmonary nodules. Chest CT was reviewed from 10/11/2014 and showed infiltrates, air bronchograms, bronchiectasis with some nonspecific mediastinal and hilar adenopathy. This was compared to 10/21 and did not have any significant change. Even after his biopsy on 11/08 other than the postsurgical changes, I do not believe there is any significant progression of disease. Pathology as mentioned as above. Culture of lung tissue was negative for anaerobic and aerobic cultures. Crypto and histologic antibodies were negative. QuantiFERON Gold was indeterminate. IMPRESSION: 1. Abnormal chest CT most consistent with interstitial lung disease. I believe this Sjogren's interstitial lung disease. I have recommended initiating Solu-Medrol 80 mg IV every 8 hours. All cultures have not shown any source of bacteria. Fungal clusters are pending. However, there is no evidence of fungal infection at this point in time. If the patient does not improve on steroids, bronchoscopy may be warranted. Atypical infections and Nocardia should remain on the differential. Lymphoma should also remain on the differential as pathology is still pending and there was suggestion of abnormal lymphoid cells. The risks and benefits of initiating steroid therapy were discussed with the patient. He understands the possibility of worsening infection with the use of steroids. 2. Fever, of undetermined etiology, possibly drug induced, possibly secondary to acute inflammatory state. Will continue to monitor. There are been no sources of infection found at this point in time. 3. Elevated liver enzymes. Would reduce the amount of Tylenol given to the patient for this reason. The patient states that he believes his fever curve is related to Tylenol. I am not sure if this truly correlates. I do not find it unreasonable to stop his Tylenol to see if this improves his liver function. I will continue to follow this patient as the patient has asked for me to be his primary coal screener. I have agreed to follow him for this abnormality. [facility]
[2016-10-29] MEDS: POLYVINYL ALCOHOL OPHTH SOLN 15 ML(LIQUITEARS) OU PRN (22:46)
[2016-10-30] VITALS (7 sets, daily range): BP systolic 96–130; BP diastolic 64–88
[2016-10-30] MEDS: SLF 3 ML SYR IV SCH ×3 (03:51→19:33)
[2016-10-30] MEDS: methylPREDNISolone INJ 125 MG/2 ML VIAL (J2930) IV SCH ×3 (03:51→19:33)
[2016-10-30 05:55] LABS: BASO % 0.4 % (0.0-1.0); EOS % 0.2 % (0.0-3.0); LARGE UNSTAINED CELL # 0.1 K/mm3 (0.0-0.4); LARGE UNSTAINED CELL % 3.1 % (0.0-4.0); LYMPH # 0.3 K/mm3 (1.5-4.5); LYMPH % 12.2 % (24.0-44.0); MEAN CORPUSCULAR HGB CONC 31.4 g/dl (32.0-36.5); MONO # 0.1 K/mm3 (0.0-0.8); MONO % 3.2 % (0.0-5.0); NEUTROPHILS # 1.7 K/mm3 (1.8-7.7); NEUTROPHILS % 80.8 % (36.0-66.0); PLATELET COUNT, AUTOMATED 148 k/mm3 (150-450); RED CELL DISTRIBUTION WIDTH 15.8 % (11.5-14.5); WHITE BLOOD COUNT 2.1 K/mm3 (4.0-10.0)
[2016-10-30 06:14] LABS: ALBUMIN/GLOBULIN RATIO 0.54 (1.00-1.93); ALKALINE PHOSPHATASE 810 U/L (45-117); ALT/SGPT 102 U/L (12-78); ANION GAP 11 MEQ/L (8-16); AST/SGOT 282 U/L (15-37); BILIRUBIN,TOTAL 0.9 MG/DL (0.2-1.0); BLOOD UREA NITROGEN 34 MG/DL (7-18); CALCIUM LEVEL 8.1 MG/DL (8.8-10.2); CARBON DIOXIDE LEVEL 24 MEQ/L (21-32); CHLORIDE LEVEL 103 MEQ/L (98-107); CREATININE FOR GFR 1.21 MG/DL (0.70-1.30); GLOMERULAR FILTRATION RATE > 60.0 (>42); GLUCOSE, FASTING 151 MG/DL (83-110); POTASSIUM SERUM 4.6 MEQ/L (3.5-5.1); SODIUM LEVEL 138 MEQ/L (136-145); TOTAL PROTEIN 5.7 GM/DL (6.4-8.2)
[2016-10-30] MEDS: LEVALBUTEROL 1.25 MG/0.5 ML CONCENTRATE NEB NEB SCH ×3 (07:19→21:05)
--- NOTE | 2016-10-30 08:35 | REP ---
Chest two views HISTORY: Wedge resection Comparison: 10/29/2016 Diffuse subcutaneous emphysema is present in the thorax unchanged compared to the previous study. There is pneumomediastinum. Parenchymal density is present in the right lower lobe unchanged compared to the previous study. A chest tube is present in the right hemithorax. There is no definite pneumothorax. The heart is normal in size. The pulmonary vasculature is normal in appearance. The bony structure is intact. IMPRESSION: 1. Diffuse subcutaneous emphysema unchanged compared to the previous study. 2. Right lower lobe parenchymal density unchanged compared to the previous study. 3. A chest tube is present in the right hemithorax. There is no definite pneumothorax. Signed by Jeison Alex MD 10/30/2016 08:27 A
[2016-10-30] MEDS: APIXABAN 5 MG TAB (ELIQUIS) PO SCH (09:00)
--- NOTE | 2016-10-30 09:05 | REP ---
CT CHEST WITHOUT IV CONTRAST: CT chest is performed in the axial plane with sagittal and coronal reconstruction images. No IV contrast was administered. Comparison made with prior study of 10/29/2016. There is a small right pneumothorax unchanged. Right chest tube remains in place. Extensive pneumomediastinum is unchanged. Extensive emphysema in the chest wall bilaterally appears similar to the prior exam. Patchy parenchymal opacities throughout both lungs are stable. There is a small left effusion which is unchanged. I do not see significant adrenopathy, with small mediastinal lymph nodes unchanged. There are degenerative changes of the spine. Visualized upper abdominal structures are grossly unremarkable and unchanged. IMPRESSION: Stable exam. Signed by Joe Gutierrez MD 10/31/2016 05:09 P
[2016-10-30] MEDS: MOM 30ML SUSPENSION UDC PO SCH (09:22)
[2016-10-30] MEDS: OCUVITE 1 TAB PO SCH ×2 (09:22→20:08)
[2016-10-30] MEDS: DOCUSATE SODIUM 100 MG CAP PO SCH ×2 (09:23→20:08)
[2016-10-30] MEDS: DIGOXIN 0.25 MG TAB PO SCH (09:23)
[2016-10-30] MEDS: VITAMIN D 1,000 INTERNATIONAL UNITS TABLET PO SCH (09:23)
[2016-10-30] MEDS: METOPROLOL TART 25 MG TABLET PO SCH ×2 (09:24→20:09)
[2016-10-30] MEDS: PANTOPRAZOLE 40MG TAB (PROTONIX) PO SCH (09:24)
[2016-10-30] MEDS: NYSTATIN 500,000 U/5 ML SUSP UDC PO SCH ×4 (09:24→20:09)
[2016-10-30] MEDS: FERROUS SULFATE 325MG TAB PO SCH (09:24)
[2016-10-30] MEDS: LACTOBACILLUS ACIDOPHILUS CAP (BACID) PO SCH ×2 (09:24→20:08)
[2016-10-30] MEDS: POLYVINYL ALCOHOL OPHTH SOLN 15 ML(LIQUITEARS) OU PRN ×2 (09:25→12:22)
[2016-10-30] MEDS ORDERED: LIDOCAINE 1% MDV 20ML VIAL As Ordered ONE ×2 (13:49→18:07)
[2016-10-30] MEDS ORDERED: FLUMAZENIL 0.5 MG/5 ML VIAL As Ordered ONE ×2 (13:50→18:06)
[2016-10-30] MEDS ORDERED: MIDAZOLAM INJ 2 MG/2 ML VIAL (J2250) As Ordered ONE ×3 (13:50→18:07)
--- NOTE | 2016-10-30 15:06 | IPN ---
DATE: 10/30/2016 Patient complains of severe trouble voiding this morning. Unable to sleep since last night. Saturations are 91% on 2 liters nasal cannula. Repeat CT of the chest showed small right pneumothorax, which is unchanged. Right chest tube remains in place. Extensive pneumomediastinum unchanged. Emphysema bilateral, as seen on prior exam. Patchy parenchymal opacities in bilateral lungs. Small left effusion, unchanged. No adenopathy. Degenerative disc changes of the spine. Chest x-ray at 6:00 a.m. showed diffuse subcutaneous emphysema, unchanged compared to prior study. Right lower lobe density unchanged compared to prior study. Chest tube, right hemothorax. No definitive pneumothorax. The patient currently denies any chest pain, pressure, tightness, dizziness, lightheadedness. He has been evaluated by sexual abuse counsellor, Dr. Baltazar, who believes that he may have Sjogren's disease and was started on Solu-Medrol 80 IV every 8 hours. Fungal cultures are pending. He had a maximum temperature (t-max) of 101 at 2027 and 102.5 at 2000 hours on 10/28/2016. Currently on no empiric antibiotics. He currently denies any cough productive of sputum, nausea, vomiting. He has had three bowel movements yesterday, which were soft. VITAL SIGNS: Maximum temperature (t-max) 101.0, current temperature 95.7. GENERAL: The patient has profound right sided anterior chest subcutaneous emphysema. HEENT: Pupils are round, reactive to light. Extraocular muscles are intact. Moist mucous membranes. Tongue is midline. LUNGS: Diminished breath sounds. Fine crackles. No wheezing. Right sided chest tube. HEART: S1, S2. Regular. ABDOMEN: Soft, nontender, nondistended. EXTREMITIES: No pitting edema. White count 2.1, hemoglobin 11, hematocrit 36, platelet count 148. Sodium 138, potassium 4.7, chloride 103, bicarbonate 24, BUN 34, creatinine 1.2, glucose of 151. AST 282, ALT 102, alkaline phosphatase 810. Liver ultrasound on 10/21/2016 showed diffuse gallbladder wall thickening, no gallstones. Common bile duct upper limits of normal, [address] on 10/30/2016 showed stable examination. Small right pneumothorax. Right chest tube in place. Extensive pneumomediastinum, extensive emphysema bilaterally. Patchy opacities. Small left pleural effusion. No lymphadenopathy. Pathology: Fibrosing pneumonia. ASSESSMENT AND PLAN: This is a 71-year-old male with a history of celiac disease, compliant with diet, prostatectomy, robotic-assisted, bilateral pelvic lymph node dissection, nonbleeding hemorrhoids and polyps, tubular adenoma, tubulovillous adenoma, iron deficiency anemia, hypertension, presented to the emergency room with 2-week history of shortness of breath, 20 pound weight loss and was found to have multiple pulmonary nodules with hilar adenopathy. Needle biopsy showed inflammatory changes, no malignancy. He continued to have recurrent fevers, maximum temperature (t-max) of 102.5, despite being treated with IV Zosyn, azithromycin and Rocephin. Repeat open lung biopsy on 10/23/2016 sent to [facility] and showed acute organizing fibrinous pneumonia in right lung consolidation. Histoplasma and Cryptococcus antigens were negative. Quantiferon TB was indeterminate. The patient had abnormal liver function tests with ultrasound showing gallbladder wall thickening without gallstones. He continues to have recurrent low grade temperature. The patient has since developed alveolar pleural fistula with subcutaneous emphysema requiring chest tube placement, currently on suction, repeat CT this morning is unchanged from prior. 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 Still with worsening shortness of breath, unchanged CT of the chest this morning. Currently on IV Solu-Medrol for presumed Sjogren's. 2. Multiple pulmonary nodules with organizing fibrinous pneumonia with presumptive diagnosis of Sjogren's disease. Managed by Dr. Jorge Baltazar. Currently on IV Solu-Medrol 80 mg IV every 8 hours. Cultures, fungal cultures are still pending. Atypical infection is potential possibility. 3. Fever of unknown origin, possibly drug induced. Dr. Watts has been consulted. No empiric antibiotics for now. 4. Abnormal liver function tests, no complaints of abdominal pain. Upper limit of normal wall thickening. Persistent abnormal liver functions. Check a HIDA scan once the patient is much more stable and possibly a surgical consultation. He has no complaints of abdominal pain currently. 5. Atrial fibrillation with rapid ventricular rate. Rate controlled with digoxin and metoprolol. Currently on Eliquis. 6. Emphysema. Currently on Solu-Medrol and Xopenex.
--- NOTE | 2016-10-30 15:10 | REP ---
PORTABLE CHEST, ONE VIEW: HISTORY: Chest tube insertion. COMPARISON: 8:20 a.m. 10/30/2016 Diffuse subcutaneous emphysema is present in the thorax unchanged compared to the previous study. Parenchymal density is present in the right lower lobe unchanged compared to the previous study. A chest tube is present in the right hemithorax. There is no definite pneumothorax. The heart is normal in size. IMPRESSION: 1. Diffuse subcutaneous emphysema unchanged compared to the previous study. 2. Right lower lobe parenchymal density is unchanged compared to the previous study. 3. A chest tube is present in the right hemithorax. There is no definite pneumothorax. Signed by Jeison Alex MD 10/30/2016 03:13 P
--- NOTE | 2016-10-30 16:22 | IPN ---
DATE: 10/30/2016 Mr. Sanches does not have an air leak, but his subcutaneous emphysema looks to be worse. I am afraid that the chest tube is not controlling the air leak. I have again obtained a CT scan on him, and it is unchanged from yesterday with a very small sliver of air space in the cupola of the chest. The findings at operation showed to be very densely adherent to the chest wall. He must be leaking from a staple line, which is not being drained by the chest tube. His vital signs show a maximum temperature (T max) of 101.0. Heart rate ranges between 70 and 82 in atrial fibrillation with a respiratory rate of 20 to 12 without the use of accessory muscles and whose blood pressure is ranging between 118/88 to 130/86. He is 95% saturated on 2 liters nasal cannula. His intake and output for the past 24 hours has been recorded as 1480 in and 740 out for a positivity of 740 mL. He has put out 165 mL from the chest tube. His weight today is 95.8 kg compared to 96.6 kg yesterday. PHYSICAL EXAMINATION: His lungs show the diffuse crackles of subcutaneous emphysema. I really cannot hear much below the subcutaneous emphysema crackles. Percussion note is hyperresonant secondary to the subcutaneous emphysema. Cardiac exam is without murmurs, clicks, gallops or rubs. I cannot feel his point of maximum impulse (PMI). S1, S2 are normal. He has subcutaneous emphysema over the anterior chest wall, which also makes auscultation cardiac auscultation difficult. Abdomen is soft, nontender. Bowel sounds are positive. There is no hepatomegaly. No costovertebral angle tenderness. Extremities show no pretibial edema. No calf tenderness. There is slight differential swelling of the upper extremities with the right being greater than the left secondary to the subcutaneous emphysema. Skin is warm, dry and perfused without cyanosis or mottling, including that of the nail beds and the knees. Neck is supple. There is a major amount of subcutaneous emphysema up past the angle of the jaw. There is no jugular venous distention and trachea is midline. Mouth shows his mucous membranes to be pink and moist. Lips and commissures without lesions. There is no thrush. Eyes show his pupils to be equal and reactive. Extraocular motions intact. Sclerae anicteric. Neurologic shows II-XII intact along with gross motor and gross sensation intact. Gait is not tested. Psychiatric shows him to be awake and alert, oriented times three with appropriate mood and affect and conversational. His white count today is 2.1 with a hemoglobin and hematocrit of 11.4 and 36.3 respectively. Platelet count is 148 with a differential that shows 80% neutrophils, 12% lymphocytes, 8% monocytes. There are no immature forms. No toxic granulations. His BUN and creatinine are 34 and 1.21 respectively with normal electrolytes. AST and ALT are 282 and 102 respectively. Albumin is 2.0. His digoxin is 1.7, within the therapeutic window. His HIV test is negative. His chest x-ray shows increased subcutaneous emphysema. I think that the lung is fully expanded to the chest wall, though it is difficult to tell. Chest CT is discussed above. IMPRESSION: 1. Indolent inflammatory pneumonitis, unknown cause. Pathology is still pending. May be Sjogren's interstitial lung disease. 2. Hypertension. 3. Atrial fibrillation. 4. Celiac sprue. 5. History of prostate cancer. 6. Prior bird and animal exposure. 7. Postoperative day #8 status post wedge resection. 8. Leukopenia. 9. Alveolar pleural fistula, continuing. PLAN AND DISCUSSION: I see no air leak in his chest tube. I am, therefore, going to place an anterior chest tube in the first intercostal space, hoping to aim it into the very small air space in order to try to control the air leak. I am going to do that prior to undertaking a blood patch, as there is always the possibility of creating an empyema. If that does not work, my hand will be forced to undertake the blood patch. I have asked Dr. Baltazar to stop the steroids that were just started until the air leak is stopped. In preparation for a possible blooc patch I will also discontinue the antiplatelet therapy. PAOLA
--- NOTE | 2016-10-30 17:55 | IPN ---
DATE: 10/30/2016 Mr. Sanches is doing better this afternoon. He was very short of breath this morning, and he had another chest tube placed by Dr. Ac. He feels much better currently. He went down for a CT scan as well. He does not have any cough. He complains of dry eyes. He states that his dry eyes were not a major complaint before he came to the hospital. He also denies dry mouth or joint pain. LABORATORY DATA: White count is 2.1, hemoglobin 11.4, hematocrit 36.3, platelets 148. Sodium 138, potassium 4.6, chloride 103, bicarbonate 24, BUN 34, creatinine 1.21, glucose 151, calcium 8.1, AST 282, ALT 102, alkaline phosphatase 110, GGTP was 600, CRP 2.47. Immunology: THUAN screen was positive. Double-stranded DNA was negative. Antimitochondrial antibody negative. Soluble liver antigen 1.2 and anti-smooth muscle antibody was 18. SS-A 7.6, SS-B was less than 0.2. Rheumatoid factor less than 10. IgG 1080. Blood cultures from 10/28/2016 are negative. Pathology of the lung is still being worked up at [facility]. KATIE by FISH is negative. Additional workup is still pending for the significance of the lymphoid cells seen in alveolar garner. IMPRESSION: Inflammatory pneumonitis with multiple pulmonary infiltrates, possibly Sjogren interstitial lung disease. Currently on IV Solu-Medrol. With air leak. PLAN: Patient remains off IV antibiotics. He is on IV Solu-Medrol, followed up by Dr. Baltazar as well as Dr. Ac. Infectious disease will be signing off at this time.
--- NOTE | 2016-10-30 19:21 | REP ---
CT CHEST WITHOUT IV CONTRAST: CT chest performed without IV contrast. Comparison made with exam earlier today. There is anterior chest tube now seen extending in the superior aspect of the anterior right chest wall. The distal tip is in the soft-tissue interspace between the first and second right ribs. It does not enter the pleural space. There is a small adjacent right apical pneumothorax. This is unchanged. There is a more inferiorly located right chest tube remains in place entering the posterior lateral aspect of the pleural space more inferiorly. Bilateral parenchymal opacities are unchanged. Small left effusion is unchanged. There is again pneumomediastinum and extensive emphysema in the chest wall bilaterally unchanged. IMPRESSION: Essentially no change except for placement of an anterior right chest tube into the superior aspect of the right hemithorax. The distal tip is in the interspace between the right 1st and 2nd ribs. Signed by Joe Gutierrez MD 10/31/2016 05:15 P
[2016-10-30] MEDS: IBUPROFEN 600 MG TAB PO PRN (20:08)
[2016-10-31] VITALS (7 sets, daily range): BP systolic 108–148; BP diastolic 57–89
--- NOTE | 2016-10-31 00:13 | RO ---
DATE OF PROCEDURE: 10/30/2016 PREPROCEDURE DIAGNOSIS: Uncontrolled air leak, alveolar pleural fistula. POSTPROCEDURE DIAGNOSIS: Uncontrolled air leak, alveolar pleural fistula. PROCEDURE: Insertion of anterior chest tube. SURGEON: Dr. Dada Ac FILTER FILLER: ANESTHESIA: DESCRIPTION OF PROCEDURE: Under satisfactory moderate sedation eventually achieved with 3 mg of Versed, the patient was prepped and draped in the usual sterile fashion. The second rib was identified and the skin and subcutaneous tissue, rib and pleura were infiltrated with 1% Xylocaine. Incision was made and a tunnel was created into the chest. I was very manny with this tunnel as the findings at his original operation showed him to be densely adherent throughout the lung. These adhesions were taken down almost completely in their entirety. Nonetheless, I was only aiming for a very small sliver of potential air space and pneumothorax. A #20 chest tube was gently threaded into the chest. There was no production of blood as if I were in the parenchyma of the lung. Chest tube was secured to the chest wall with a #2 Tevdek suture and connected to the Pleur-evac. The patient tolerated the procedure well and a chest x-ray is pending.
[2016-10-31] MEDS: LEVALBUTEROL 1.25 MG/0.5 ML CONCENTRATE NEB NEB SCH ×4 (02:23→20:30)
[2016-10-31] MEDS: SLF 3 ML SYR IV SCH ×3 (05:12→21:37)
[2016-10-31 05:41] LABS: MEAN CORPUSCULAR HGB CONC 32.5 g/dl (32.0-36.5); MEAN CORPUSCULAR VOLUME 83.2 fl (80.0-96.0); WHITE BLOOD COUNT 3.1 K/mm3 (4.0-10.0)
--- NOTE | 2016-10-31 06:24 | REP ---
AP PORTABLE CHEST: 10/30/2016 at 6:44 PM. Comparison: CT chest and two other portable chests earlier today. Clinical history: Status post chest tube insertion. Findings: There has been change or repositioning of the anterior superior chest tube on the right which is advanced further along the chest wall and is extending more inferior than its tip previously was at the first/second interspace. Extensive subcutaneous emphysema in both chest wall and neck base limits evaluation of the lung butler. There is peripheral consolidation mid and lower right lung and right lateral chest tube extending to the mid lung. I do not see a definite pneumothorax that is visible on the CT chest 2 hours ago. It could still be present but obscured by the extensive overlying chest wall emphysematous change. The pneumomediastinum is again seen. No other change. Impression: 1. Repositioning or reinsertion of a right apex chest tube by anterior approach now extending further into the upper chest and its tip more inferior. 2. The inferior right lateral chest tube extends up the right lateral chest tube extending to the mid chest. Extensive subcutaneous emphysema with peripheral right mid and lower lung zone opacity and pneumomediastinum are all unchanged. I cannot clearly define pneumothorax at the right apex as on the recent CT. Signed by Harish Wheatley MD 10/31/2016 04:40 P
--- NOTE | 2016-10-31 07:46 | RO ---
DATE OF PROCEDURE: 10/30/2016 PREPROCEDURE DIAGNOSIS: Malpositioned chest tube. POSTPROCEDURE DIAGNOSIS: Malpositioned chest tube. PROCEDURE: Repositioning of chest tube into the chest. SURGEON: Dr. Dada Ac SENIOR GL ACCOUNTANT: ANESTHESIA: INDICATIONS: An anterior chest tube was placed in the first intercostal space this afternoon. The original operation showed him to have very dense adhesions. I thought that the tube had gone into the chest; however, I was leery of pushing it in any further for fear of puncturing lung. I therefore kept the chest tube where I thought it might be in the chest and undertook a CT scan. The chest tube was found to be just underneath the endothoracic fascia. There was a clear space beneath the tube where I knew I could safely reposition and push the tube. PROCEDURE: Under satisfactory moderate sedation achieved with 2 mg of Versed, the skin and subcutaneous tissue was infiltrated with 1% Xylocaine. The chest tube was unsutured and prepped and draped along its entire length. It was disconnected from the Pleur-evac and a trocar was placed within the chest tube. The chest tube was then directed and pushed through the endothoracic fascia which was very thick and very tough until the chest tube went into the chest. It felt as if it slid nicely and was not in parenchyma. The chest tube was secured to the chest wall with #2 Tevdek suture and connected to the Pleur-evac again. The patient tolerated the procedure well and a chest x-ray is pending.
[2016-10-31] MEDS: VITAMIN D 1,000 INTERNATIONAL UNITS TABLET PO SCH (08:52)
[2016-10-31] MEDS: PANTOPRAZOLE 40MG TAB (PROTONIX) PO SCH (08:52)
[2016-10-31] MEDS: LACTOBACILLUS ACIDOPHILUS CAP (BACID) PO SCH ×2 (08:52→20:19)
[2016-10-31] MEDS: OCUVITE 1 TAB PO SCH ×2 (08:52→20:19)
[2016-10-31] MEDS: NYSTATIN 500,000 U/5 ML SUSP UDC PO SCH (08:52)
[2016-10-31] MEDS: FERROUS SULFATE 325MG TAB PO SCH (08:52)
[2016-10-31] MEDS: DOCUSATE SODIUM 100 MG CAP PO SCH ×2 (08:53→20:19)
[2016-10-31] MEDS: DIGOXIN 0.25 MG TAB PO SCH (08:53)
[2016-10-31] MEDS: MOM 30ML SUSPENSION UDC PO SCH (08:53)
[2016-10-31] MEDS: oxyCODONE 5MG TAB PO PRN ×2 (08:54→21:38)
[2016-10-31] MEDS: METOPROLOL TART 25 MG TABLET PO SCH ×2 (08:56→20:21)
--- NOTE | 2016-10-31 12:00 | IPN ---
DATE: 10/31/2016 Patient seen and examined at the bedside. Chart has been reviewed. Patient had worsening respiratory distress yesterday. Repeat chest CT was unchanged from prior with persistent pneumomediastinum with extensive subcutaneous emphysema in the right anterior chest. Chest tube was placed at the right apex via the anterior approach and inferior right lateral chest tube found also in the right lateral mid chest area. He currently denies any chest pain, pressure, tightness, shortness of breath. He is at baseline. No worsening today. He had a fever of 103.8 last night. VITAL SIGNS: T-max 103.8, current temperature 96.7, pulse 100, respiratory rate 18, blood pressure 116/67, 95% on 2 liters nasal cannula. Two chest tubes right anterior and lateral chest. INTAKE AND OUTPUT: Input 560, output 425, positive 135. Chest draining 75 mL, right lateral chest 20 and right posterior chest 50, right upper anterior chest 5 mL. Current weight is 91.5 kg. GENERAL: Patient is awake, alert, oriented times three, answering questions appropriately. Has significant diminished subcutaneous emphysema right sided anterior chest. Chest tubes are noted. LUNGS: Diminished. No wheezing. HEART: S1, S2 irregularly, irregular. ABDOMEN: Soft, nontender, nondistended. EXTREMITIES: No pitting edema. LABORATORY DATA: White count 3.1, hemoglobin 10.9, hematocrit 33, platelets 153. Sodium 138, potassium 4.6, chloride 103, bicarbonate 24, BUN 34, creatinine 1.2, glucose of 151. AST 282, ALT 102, alkaline phosphatase 810. Microbiology: Two sets of bloods negative after 48 hours. Anaerobic culture on the right, 10/22, negative. Mycobacterium culture pending AFB. Lung pathology October 23, Juaquin-Clemente virus is negative. Acute and organizing fibrinous pneumonia. CURRENT MEDICATIONS: Oxycodone, artifical tears, nystatin, Protonix, Colace, Xopenex, Zofran, Dulcolax, Milk of Magnesia, Bacid, ibuprofen, Xanax, metoprolol, digoxin, vitamin D, ferrous sulfate, multivitamin. The patient's IV Solu-Medrol has been discontinued by Dr. Ac. ASSESSMENT AND PLAN: This is a 71-year-old male with a history of celiac disease, compliant with diet, prostatectomy, robotic-assisted, bilateral pelvic lymph node dissection, non bleeding hemorrhoids and polyps, tubular adenoma, tubulovillous adenoma, iron deficiency anemia, hypertension, presented to the emergency room with a two week history of shortness of breath, 20 pound weight loss and was found to have multiple pulmonary nodules and hilar adenopathy. Needle biopsy showed inflammatory changes, no malignancy. Patient continued to have recurrent fevers, T-max of 102.5, despite being treated for possible postobstructive pneumonia with IV Zosyn, azithromycin and Rocephin. Repeat open lung biopsy 10/23/2016 showed acute organizing fibrinous pneumonia on the right lung consolidation. Histoplasma and Cryptococcus antigens were negative. QuantiFERON was indeterminate. Abnormal liver function tests was evaluated with ultrasound showing gallbladder wall thickening without gallstones. Patient continues to have atrial fibrillation with RVR controlled on metoprolol and digoxin. Patient's Eliquis is being held secondary to right chest tube placed due to his subcutaneous emphysema and developed alveolar pleural fistula requiring further chest tube placements. Pulmonary has been consulted for pulmonary nodules thought to be secondary to Sjogren's syndrome. Infectious disease specialist, Dr. Jani Watts, has signed off. CURRENT ISSUES: 1. Alveolar pleural fistula with subcutaneous emphysema. At this time, Dr. Ac has been managing the patient's tubes. Continue with the same. Appreciate his input and active management. 2. Multiple pulmonary nodules with organizing fibrinous pneumonia with presumptive diagnosis of Sjogren's disease. Managed by Dr. Jorge Baltazar. The patient's IV Solu-Medrol was discontinued by Dr. Ac for now. Cultures are still pending. Atypical infection is a potential possibility. 3. Fever of unknown origin secondary to Sjogren's. Dr. Watts has signed off. Does not feel that this is infection related. 4. Abnormal liver function tests with no complaints of abdominal pain with upper limit of normal with gallbladder wall thickening. Currently stable. No further evaluation. 5. Atrial fibrillation with rapid ventricular rate. Rate controlled. Currently on digoxin and metoprolol. Eliquis has been discontinued due to recent surgical interventions with chest tube placement. 6. Emphysema. On xopenes. Solu-Medrol has been discontinued.
--- NOTE | 2016-10-31 12:16 | REP ---
CHEST, TWO VIEWS: Two views of the chest are performed. Comparison 10/30/2016. Two right chest tubes are now seen, one inferiorly and one superiorly. I do not see a definite pneumothorax. Bilateral parenchymal opacities appear unchanged. Pneumomediastinum is again noted. Cardiomediastinal silhouette is unchanged. Extensive emphysema in the chest wall is again noted bilaterally. IMPRESSION: Placement of right chest tube superiorly, with two right chest tubes now in place. No definite pneumothorax. Pneumomediastinum and bilateral parenchymal opacities unchanged. Signed by Joe Gutierrez MD 10/31/2016 05:18 P
[2016-10-31] MEDS: ALPRAZolam 0.25 MG TAB PO PRN ×2 (13:38→20:19)
--- NOTE | 2016-10-31 15:00 | IPN ---
DATE: 10/31/2016 Mr. Sanches's subcutaneous emphysema looks to be a little bit more dissipated today on physical examination. He is not having as much discomfort. Certainly, the emphysema over his back is much better. We did place a superior-anterior chest tube yesterday. His vital signs show a maximum temperature (T max) of 103.8 yesterday evening. Heart rate is 95 to 100 in atrial fibrillation with a respiratory rate of 16 to 22 without the use of accessory muscles, who is 95% saturated on 2 liters nasal cannula, and whose blood pressure is ranging between 116/57 to 130/89. His intake and output for the past 24 hours has been recorded as 560 in and 425 out for a positivity of 135 mL. He has only taken in 560 mL in oral intake. He has put out 75 mL from the chest tube and there is no air leak in either of the chest tubes. He weighs 91.5 kg today compared to 95.8 kg yesterday. PHYSICAL EXAMINATION: LUNGS: His lung sounds are not audible beneath the subcutaneous emphysema. There are still some crackles of subcutaneous emphysema, but I hear some wheezing and squeaks on the right side during inspiration and normal vesicular sounds on the left side. Percussion note is not hyperresonant as it was yesterday. CARDIAC EXAM: Without murmurs, clicks, gallops or rubs. I cannot feel his point of maximum impulse (PMI). S1, S2 are normal. ABDOMEN: Soft, nontender. Bowel sounds positive. There is no hepatomegaly. No costovertebral angle tenderness. EXTREMITIES: Show no pretibial edema. No calf tenderness. There is still some differential swelling of the upper extremities with the right greater than left from the subcutaneous emphysema. SKIN: Warm, dry and perfused without cyanosis or mottling, including that of the nail beds and knees. NECK: Supple. There is no jugular venous distention. There is subcutaneous emphysema up to the angle of the jaw. Trachea is midline. MOUTH: Shows his mucous membranes to be pink and moist. Lips and commissures without lesions. There is no thrush. EYES: Show his pupils to be equal and reactive. Extraocular motion intact. Sclerae anicteric. NEUROLOGIC: Shows II through XII intact with gross motor and gross sensation intact. Gait is not tested. PSYCHIATRIC: Shows him to be awake and alert, oriented times three with appropriate mood and affect and conversational. His white count today is 3.1 with a hemoglobin and hematocrit of 10.9 and 35.5, essentially unchanged from yesterday's 11.4 and 36.3. Platelet count is 153. Chemistries show normal electrolytes with a BUN and creatinine of 34 and 1.21, which is up from 25 and 0.93 yesterday. Calcium is 8.1 with a glucose of 151. Corresponding albumin is 2.0. His THUAN screen is positive. His chest x-ray today shows the subcutaneous emphysema. It does not look any more improved from his chest x-ray, however, today. He still has the infiltrative patterns in the right middle lung butler; however, those seem to be getting better. His upper chest tube is posterior and superior. IMPRESSION: 1. Indolent inflammatory pneumonitis, unknown cause. Final pathology is still pending. May be Sjogren's interstitial lung disease. 2. Hypertension. 3. Atrial fibrillation. 4. Celiac sprue. 5. History of prostate cancer. 6. Prior bird and animal exposure. 7. Postoperative day #9 status post wedge resection. 8. Leukopenia. 9. Alveolar pleural fistula, hopefully ceased. PLAN AND DISCUSSION: I will continue his chest tubes on suction. As noted yesterday, I have asked Dr. Baltazar to hold the steroids and I am going to discontinue the Eliquis in case I need to do a blood patch.
[2016-10-31] MEDS: IBUPROFEN 600 MG TAB PO PRN (15:12)
[2016-10-31] MEDS ORDERED: SIMETHICONE 80 MG CHEW TAB PO PRN (17:45)
[2016-11-01] MEDS: LEVALBUTEROL 1.25 MG/0.5 ML CONCENTRATE NEB NEB SCH ×2 (02:00→07:15)
[2016-11-01 04:00] VITALS: BP 111/57
[2016-11-01] MEDS: SLF 3 ML SYR IV SCH (05:47)
[2016-11-01 06:27] LABS: MEAN CORPUSCULAR HEMOGLOBIN 27.4 pg (27.0-33.0); MEAN CORPUSCULAR HGB CONC 32.5 g/dl (32.0-36.5); MEAN CORPUSCULAR VOLUME 84.5 fl (80.0-96.0); RED CELL DISTRIBUTION WIDTH 15.9 % (11.5-14.5); WHITE BLOOD COUNT 2.2 K/mm3 (4.0-10.0)
[2016-11-01 06:47] LABS: ALBUMIN 1.9 GM/DL (3.2-5.2); ALBUMIN/GLOBULIN RATIO 0.53 (1.00-1.93); BILIRUBIN,TOTAL 2.1 MG/DL (0.2-1.0); CALCIUM LEVEL 8.1 MG/DL (8.8-10.2); GLOMERULAR FILTRATION RATE 38.1 (>42); MAGNESIUM LEVEL 2.2 MG/DL (1.8-2.4); POTASSIUM SERUM 4.8 MEQ/L (3.5-5.1); TOTAL PROTEIN 5.5 GM/DL (6.4-8.2)
[2016-11-01 07:05] LABS: CREATININE FOR GFR 1.86 MG/DL (0.70-1.30)
[2016-11-01 08:00] VITALS: BP 135/69
[2016-11-01] MEDS ORDERED: ALLOPURINOL 100 MG TAB PO SCH (09:00)
[2016-11-01] MEDS ORDERED: NS 1,000 ML IV ONE (09:45)
[2016-11-01 09:52] VITALS: BP 110/65
[2016-11-01 09:54] LABS: ABG BASE EXCESS -1.1 (-2.0-2.0); ABG PARTIAL PRESSURE CO2 27.8 mmHg (35.0-45.0); ABG PARTIAL PRESSURE O2 77.4 mmHg (75.0-100.0); ABG STANDARD HCO3 23.6 MEQ/L (22.0-26.0); ABG TOTAL CO2 21.9 MEQ/L (23.0-31.0); ABG pH (ARTERIAL) 7.497 UNITS (7.350-7.450)
[2016-11-01 09:54] LABS: URIC ACID 9.7 MG/DL (3.5-7.2)
[2016-11-01 10:49] LABS: CREATININE FOR GFR 2.16 MG/DL (0.70-1.30); GLOMERULAR FILTRATION RATE 32.1 (>42); PHOSPHORUS LEVEL 3.6 MG/DL (2.5-4.9); URIC ACID 10.2 MG/DL (3.5-7.2)
[2016-11-01 10:50] LABS: POTASSIUM SERUM 5.3 MEQ/L (3.5-5.1)
[2016-11-01] MEDS ORDERED: D5W/0.45% SODIUM CHLORIDE 1,000 ML IV SCH (11:00)
[2016-11-01] MEDS ORDERED: ALLO10TA PO (11:02)
[2016-11-01] MEDS ORDERED: DIGO0.25 PO (11:03)
[2016-11-01] MEDS ORDERED: LEVA12INH NEB (11:06)
[2016-11-01] MEDS ORDERED: METO25TAB PO (11:06)
[2016-11-01] MEDS: DOCUSATE SODIUM 100 MG CAP PO SCH (11:47)
[2016-11-01] MEDS: VITAMIN D 1,000 INTERNATIONAL UNITS TABLET PO SCH (11:47)
[2016-11-01] MEDS: MOM 30ML SUSPENSION UDC PO SCH (11:47)
[2016-11-01] MEDS: LACTOBACILLUS ACIDOPHILUS CAP (BACID) PO SCH (11:47)
[2016-11-01] MEDS: PANTOPRAZOLE 40MG TAB (PROTONIX) PO SCH (11:48)
[2016-11-01] MEDS: FERROUS SULFATE 325MG TAB PO SCH (11:48)
[2016-11-01] MEDS: DIGOXIN 0.25 MG TAB PO SCH (11:48)
--- NOTE | 2016-11-01 11:54 | IPN ---
DATE: 11/01/2016 Yesterday afternoon, we got the pathology report back from [facility]. 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 I informed the patient and his yesterday of the diagnosis. He had already undergone an anterior chest tube insertion and the air leak was controlled, and in fact, it disappeared with lung coming back to the chest wall. His subcutaneous emphysema was markedly improving. This morning, however, the nurses found him with increasing shortness of breath and very weak. Furthermore, his temperature was 105. I was called and asked the medical physicians to see him immediately and proceeded to come in from [place]. When arrived, he was awake and alert, quite weak on a Ventimask of 100% nonrebreather. His temperature had defervesced down to 102. Throughout his entire hospital course, he has always had a fever and we have been working him up for the more common presentations of fever, including an infectious source, but have not been able to find any. He was taken to the operating room for a lung biopsy with the thought that this represented fungal disease because of his extension exposures [place] and [place] over the past 12 years. Now in retrospect, it looks as though this is probably secondary to his lymphoma and today his constellations of signs and symptoms are consistent with tumor lysis syndrome. Tumor lysis syndrome is usually associated with post chemotherapeutic regimens. However, lymphomas are fairly bad actors with regards to spontaneous tumor lysis syndromes, albeit still very rare. His vital signs show the above temperature of 105.4 with a heart rate that ranges between 122-115, in atrial fibrillation, with a respiratory rate of 18-32, however, without the use of accessory muscles. He is 88% saturated on a 50% Venturi mask. His blood pressure is 110/65 to 135/69. His intake and output for the past 24 hours has been recorded as 1200 in and 405 out for a positivity of 795 mL. He has put out 105 mL from both the chest tubes in total with the posterior chest tube putting out 75 and the anterior chest putting out 30 mL. There is no air leak. He weighs 92.5 kg today compared to 91.5 kg yesterday. On physical examination, his lung show the overlying crackles of subcutaneous emphysema. Beneath the crackles there is some inspiratory wheezing and rhonchi. Most of these clear with coughing. Cardiac exam is without murmurs, clicks, gallops or rubs. I cannot feel his point of maximum impulse (PMI). S1, S2 are normal. The subcutaneous emphysema over his anterior chest is diminishing. Abdomen is soft, nontender. Bowel sounds positive. There is no hepatomegaly. No costovertebral angle (CVA) tenderness. Extremities show no pretibial edema but with the subcutaneous emphysema down the right and left arm, which is also getting better. Skin is warm, dry and perfused. Without cyanosis or mottling, including that of the nail beds and knees. Neck is supple. There is subcutaneous emphysema up to the angle of the jaw. There is no jugular venous distention. The trachea is midline. Mouth shows his mucous membranes to be pink and moist. Lips and commissures without lesions. His thrush has resolved. Eyes show his pupils to be equal and reactive. Extraocular motion intact. Sclerae anicteric. Neuro shows II-XII intact along with gross motor and gross sensation intact. Gait is not tested. Psychiatric shows him to be awake and alert, oriented times three with appropriate mood and affect. His white count today is still diminished at 2.2 with a hemoglobin and hematocrit of 11.3 and 34.8, repsectively. Platelet count is 113. There is no differential today. Blood gases this morning show a pH of 7.49, a pCO2 of 27 and a pO2 of 77 with a base excess of minus 1.1. His chemistries this morning at 6 o'clock show normal electrolytes with a BUN and creatinine of 72 and 1.86, which is up from 34 and 1.21 yesterday and 25 and 0.93 the day before. His glomerular filtration rate of course is markedly dropping down to 38.1, glucose is 99 and his uric acid is 9.7. The upper limit of normal for uric acid in this institution is 7.2. His AST and ALT are 573 and 131, respectively. Alkaline phosphatase is 860. Albumin is 1.9 with a calcium of 8.1. Phosphorus is pending. His chest x-ray today taken portably shows the subcutaneous emphysema, which continues to dissipate. His anterior chest tube is more posterior towards the vertebral gutter. Nonetheless, the lung is fully expanded to the chest wall. He has the infiltrates, particularly on the right side, which had been biopsied and are essentially unchanged. IMPRESSION: 1. 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 2. Hypertension. 3. Atrial fibrillation. 4. Celiac sprue. 5. History of prostate cancer. 6. Prior bird and animal exposure. 7. Postoperative day #10 status post wedge resection. 8. Leukopenia. 9. 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 I was planning to take his chest tubes out today. However, since we cannot offer in-house chemotherapy as of yet, he is to be transferred to an outside facility. I will therefore keep his chest tubes in and let them be removed at the outside facility. His alveolar pleural fistula is resolved. I have decreased his suction to 20 and he can be transported off suction. He is to be hydrated and we will treat the electrolyte imbalances, including the hyperuricemia, with hydration. Medical services has given him 1000 mL bolus and I would recommend that we follow that with 125 mL. We do have to be careful not to throw him over into pulmonary edema. As noted above, I think that in retrospect most of his symptomatology could be explained by tumor lysis syndrome. MTDD
[2016-11-01 12:30] VITALS: BP 106/62
[2016-11-01 12:51] LABS: URIC ACID 10.1 MG/DL (3.5-7.2)
--- NOTE | 2016-11-01 14:53 | REP ---
PORTABLE CHEST: HISTORY: Followup. COMPARISON: Multiple, the latest 10/31/2016 at 8:00 a.m. The right-sided thoracotomy tubes are unchanged. There is extensive subcutaneous emphysema, status quo. There is no significant change in the appearance of the lung butler. There is no evidence of a pneumothorax. The technique utilized in obtaining the radiograph has magnified the cardiac silhouette and accentuated the interstitial markings. The osseous structures are unchanged. IMPRESSION: No significant change from 10/31/2016 at 8:14 a.m. Signed by Prasanna Steiner DO 11/01/2016 03:45 P
--- NOTE | 2016-11-01 21:15 | DSES ---
DATE OF ADMISSION: 10/11/2016 DATE OF DISCHARGE: 11/01/2016 Transfer to [facility]. ACCEPTING PHYSICIAN: Dr. Blake REASON FOR TRANSFER: Tumor lysis syndrome, new diagnosis of anaplastic large-cell T-cell lymphoma, for inpatient chemotherapy. DISCHARGE DIAGNOSES: 1. Tumor lysis syndrome. 2. Anaplastic large T-cell lymphoma, new diagnosis. 3. Alveolar pleural fistula. 4. Subcutaneous emphysema, postoperative day 10, post wedge resection, lung biopsy. 5. Atrial fibrillation, new onset. 6. Celiac sprue history. 7. Hypertension. 8. Acute kidney injury secondary to tumor lysis syndrome. 9. Hyperkalemia secondary to tumor lysis syndrome. 10. Pancytopenia secondary to lymphoma. DISCHARGE MEDICATIONS: - D5 half-normal saline 150 mL per hour - allopurinol 200 mg daily - digoxin 0.25 mg daily - metoprolol 37.5 mg twice a day - Xopenex 1.25 mg every 2 hours as needed for wheezing CONSULTANTS DURING THIS ADMISSION: Thoracic surgery, Dr. Dada Ac, infectious disease specialist, Dr. Jani Watts, pulmonary critical care, Dr. Bran Morgan, Dr. Jorge Baltazar PROCEDURES DURING THIS ADMISSION: 1. On 10/22/2016, video-assisted thoracic surgery, wedge resection of right upper lobe with extensive lysis of adhesions, and bronchoscopy. 2. Fine-needle aspiration biopsy 10/14/2016. 4. CT-guided biopsy on 10/13/2016. HOSPITAL COURSE: A 71-year-old male was in his usual state of health with prior history of chronic obstructive pulmonary disease (COPD), celiac disease, bullous emphysema, chronic polyp, non-bleeding hemorrhoid, prostatectomy, robotic-assisted, bilateral pelvic lymph node dissection presents to the emergency room with 2-week history of worsening shortness of breath with exertion and at rest with cough with mild sputum. Patient as headache da 20-pound weight loss in the past 2 months. Primary care physician ordered a chest x-ray, which showed multiple pulmonary nodules. He presented on 10/11/2016 and was found to be in atrial fibrillation with rapid ventricular rate, which was new onset. Patient was in atrial fibrillation with rapid ventricular rate of 159, [id number] abnormalities. Patient was given digoxin and metoprolol with improvement. He was started on Eliquis and was rate controlled. Patient developed worsening respiratory distress. Imaging study included CT chest on October 11, which showed multiple pulmonary nodules and possible postobstructive pneumonia. Patient was given intravenous antibiotics with azithromycin and ceftriaxone for a full 7 days with no resolution. He continued to have recurrent fevers, temperature of 101.5 on October 13, 102.4 on October 19. Fine-needle aspiration biopsy performed October 14 showed organizing pneumonia. No malignancies noted on the biopsy. Dr. Jani Watts was consulted on 10/20/2016. Serologies for Histoplasma cryptococcal antigen antibody and quantiFERON-TB Gold were sent. Dr. Dada Ac, thoracic surgery, was consulted for open lung biopsy. We continued patient's Eliquis for biopsy. Wedge resection was performed 10/22/2016. Patient then developed subcutaneous emphysema requiring right thoracotomy tube in the right lateral chest with some improvement. Repeat chest CT on October 29 showed extensive subcutaneous emphysema with pneumomediastinum and bilateral pneumothoraces. Cannot rule out a bronchopleural fistula, at which point a second chest tube was placed and managed by Dr. Ac. Patient continues to have recurrent fevers and pancytopenia. Pulmonary critical care was consulted. They suggested possible Sjogren's syndrome, awaiting pathology report. Patient had an uncontrolled air leak with alveolar pleural fistula on 10/30/2016, requiring repeat insertion of an anterior chest tube. Current has three chest tubes for air leak and subcutaneous emphysema. Dr. Jani Watts signed off after patient was diagnosed with inflammatory pneumonitis with multiple pulmonary infiltrates, though to be secondary to Sjogren's interstitial lung disease. Patient was placed on intravenous (IV) Solu-Medrol 80 IV every 6 hours by plater apprentice, Dr. Baltazar. This was discontinued by Dr. Ac, thoracic surgery at this time. Pathology returned with anaplastic T-cell lymphoma, large cell. Patient then developed significant respiratory distress with respiratory rate in 40s. He was emergently transferred to intensive care unit (ICU) for further monitoring with 50% Venturi mask, saturating at 93%. Heart rate increased to 115-120s on current dose of digoxin and allopurinol. Digoxin level was 1.7 on 10/30/2016. Patient was found to have developed acute kidney injury on 11/01/2016 with a creatinine of 1.86, hyperkalemia of 5.3, and LDH of 1516. Patient was started on D5 half-normal saline and allopurinol. Transfer to an inpatient chemotherapy facility was required and treatment for tumor lysis syndrome. Patient is transferred with guarded prognosis to [facility], accepting physician Dr. Blake for tumor lysis syndrome, new diagnosis of anaplastic large T-cell lymphoma. PHYSICAL EXAMINATION ON DISCHARGE: Maximal temperature 105.4, current temperature 101.1, pulse 125, respiratory 32, blood pressure 110/65, 93% on Venturi mask, FiO2 of 50%. Generally patient is awake, alert, oriented to person, place, and time. Currently has mild respiratory distress, use of accessory muscles, anicteric. No jaundice. Able to speak in full sentences. No slurring of speech. Lungs are diminished with crepitus and subcutaneous emphysema still noted in right anterior chest. Left chest has some fine crackles and faint expiratory wheezing. Heart S1, S2, irregularly irregular. Abdomen is soft, nontender, nondistended. Normoactive bowel sounds. Extremities have no pitting edema. LABORATORY DATA: White count 2.2, hemoglobin 11, hematocrit 34, platelet count of 113. Sodium 139, potassium 5.3, chloride 105, bicarbonate 23, BUN 77, creatinine 2.16, glucose of 117. LDH of 4315. Albumin of 2. Microbiology: Blood cultures October 11: No growth, two sets. Acid fast stain needle biopsy October 13 negative. Pending official report. Blood culture October 20 no growth. Right lung acid-fast bacillus (AFB) stain pending. Anaerobic culture October 22: No growth. Two sets of blood cultures October 28 no growth, pathology report. Wedge resection 10/23/2016 positive for anaplastic large-cell lymphoma, T cell. IMAGING STUDIES: Chest CT, abdomen and pelvis on October 11: Neoplasm with postobstructive pneumonia, right hilar adenopathy, numerable spiculated densities throughout both lung butler, too numerous to count, all representing a change from prior CT chest, adenopathy. CT abdomen and pelvis showed small-bowel ileus versus early partial small-bowel obstruction, periaortic adenopathy of uncertain etiology with enlarged lymph nodes seen in the leesa hepatis adjacent to celiac axis. Simple left renal cyst. Liver ultrasound on October 21: Diffuse gallbladder wall thickening. No gallstones seen. No free fluid. Common bile duct upper limits of normal, diameter of [address] on 10/29/2016 shows extensive subcutaneous emphysema with pneumomediastinum and bilateral pneumothoraces. Cannot rule out a bronchopleural fistula. On 10/30/2016, CT chest: No change except for placement of anterior right chest tube into superior aspect of the right hemithorax, distal tip in the interspace between right 1st and 2nd ribs. Chest x-ray on 10/31/2016: Placement of right chest tube superiorly with two right chest tubes now in place. No definite pneumothorax. Pneumomediastinum, bilateral parenchymal opacities, unchanged. On 11/01/2016, chest x-ray pending. TIME SPENT ON DISCHARGE: 60 minutes.
== END 2016-11-01 13:34 | disposition short-term general hospital (02) | DRG 163 ==
LOC: M ED 10:54 → M ED INP 13:46 → M PCU 21:16 → M PED 10-15 18:37 → M PCU 10-21 13:42 → M ICU 10-22 18:30 → M PCU 10-27 12:05 → M ICU 11-01 09:35
PROVIDERS: ADMIT Internal Medicine; ATTEND General Practice
PROC: 0BBF3ZX Excision of Right Lower Lung Lobe, Percutaneous Approach, Diagnostic (ICD-10-PCS; 2016-10-13)
PROC: 0BNK4ZZ Release Right Lung, Percutaneous Endoscopic Approach (ICD-10-PCS; principal; 2016-10-22 13:45)
PROC: 0BBC4ZX Excision of Right Upper Lung Lobe, Percutaneous Endoscopic Approach, Diagnostic (ICD-10-PCS; 2016-10-22 13:45)
DX: J18.9 Pneumonia, unspecified organism (principal); E88.3 Tumor lysis syndrome; J86.0 Pyothorax with fistula; D61.818 Other pancytopenia; N17.9 Acute kidney failure, unspecified; C84.69 Anaplastic large cell lymphoma, ALK-positive, extranodal and solid organ sites; J95.812 Postprocedural air leak; I48.91 Unspecified atrial fibrillation; I10 Essential (primary) hypertension; E87.5 Hyperkalemia; K90.0 Celiac disease; T81.82XA Emphysema (subcutaneous) resulting from a procedure, initial encounter; Z79.899 Other long term (current) drug therapy; J44.9 Chronic obstructive pulmonary disease, unspecified; R91.8 Other nonspecific abnormal finding of lung field; J84.17 Other interstitial pulmonary diseases with fibrosis in diseases classified elsewhere; Z85.46 Personal history of malignant neoplasm of prostate; D50.9 Iron deficiency anemia, unspecified; Z79.82 Long term (current) use of aspirin; R50.2 Drug induced fever